=== PATIENT | female | born 1945 | race Caucasian/White ===

== ENCOUNTER → 2016-03-18 | Outpatient (CLI) | payer MEDICARE ==
[~2016-03-18] MED LIST: ATOR10TA66 PO; CALC1CAP21 PO; CALTRATE 600 +1 EACH PO; CHOL10002 PO; CHOL40002 PO; CLOB15CR3 TP; EST45C VG; LEVO75TA6 PO; LVT.05T PO; LVT.1T PO; METO50TA7 PO; MULT-1029 PO; VERA240C2 PO
--- NOTE | 2016-03-18 18:55 | Diagnostic Imaging Report ---
INDICATION: Digital mammogram bilateral screening. This study was compared to the prior exam of 03/13/15, 03/10/14 and 01/24/13. At this time, there are no current complaints. The current study was also evaluated with a Computer Aided Detection (CAD) system. FINDINGS: The fibroglandular tissue in both breasts is heterogeneously dense. This does limit the sensitivity of this exam. Overall, there does not appear to have been any significant change when compared to the prior study. No primary or secondary sign of malignancy is noted. IMPRESSION: There is no radiographic evidence for malignancy. ACR BI-RADS Category 1: Negative. Result letter will be mailed to the patient. Note: At least 10% of breast cancer is not imaged by mammography. Dictated by: Dictated on workstation # [id number]
== END ==
LOC: RAD 09:33
PROVIDERS: ATTEND Internal Medicine
DX: Z12.31 Encounter for screening mammogram for malignant neoplasm of breast (principal)

== ENCOUNTER → 2017-03-24 | Outpatient (CLI) | payer MEDICARE, OTHER ==
--- NOTE | 2017-03-24 10:26 | Diagnostic Imaging Report ---
INDICATION: Routine screening. Comparison is made with prior study from 03/18/2016 and 03/13/2015. The current study was also evaluated with a Computer Aided Detection (CAD) system. FINDINGS: Scattered parenchymal densities are identified bilaterally. The parenchymal pattern is stable. No dominant mass or malignant appearing microcalcifications are seen. The axillae are unremarkable. IMPRESSION: No mammographic features suspicious for malignancy are identified. ACR BI-RADS Category 1: Negative. Result letter will be mailed to the patient. Note: At least 10% of breast cancer is not imaged by mammography. Dictated by: Dictated on workstation # [id number]
== END ==
LOC: RAD 08:46
PROVIDERS: ATTEND Internal Medicine
DX: Z12.31 Encounter for screening mammogram for malignant neoplasm of breast (principal)
CPT/HCPCS: 77067

== ENCOUNTER 2017-11-25 14:57 | Outpatient (CLI) | payer MEDICARE ==
[~2017-11-25] VITALS: Ht 177.8 cm; Wt 74.9 kg
[~2017-11-25 14:57] MED LIST changes: +EST30C VG
== END 2017-11-25 15:11 | disposition home or self-care (01) ==
LOC: PREOP 14:57
PROVIDERS: ATTEND Surgery
DX: Z01.818 Encounter for other preprocedural examination (principal)

== ENCOUNTER 2017-12-01 07:07 | Day surgery (SDC) | payer MEDICARE ==
[~2017-12-01] VITALS: Ht 177.8 cm; Wt 74.9 kg
[2017-12-01] MEDS ORDERED: LACTATED RINGERS 1,000 ML IV ONE (07:16)
[2017-12-01] MEDS ORDERED: PROPOFOL INJECTION 50 ML IV ONE (07:25)
[2017-12-01] MEDS ORDERED: LACTATED RINGERS 1,000 ML IV STA (07:38)
[2017-12-01 07:40] VITALS: BP 124/65
--- NOTE | 2017-12-01 08:38 | Progress Note-Post Operative ---
Post-Operative Progess Note Surgeon (s)/Payroll Machine Operator (s) Surgeon JAKE TERESA DO Payroll Machine Operator: na Pre-Operative Diagnosis screening colonoscopy Post-Operative Diagnosis normal colon Procedure & Operative Findings Date of Procedure 12/01/17 Procedure Performed/Findings colonoscopy Anesthesia Type per instructional systems designer Estimated Blood Loss Estimated blood loss (mL): na Specimens/Packing Specimens Removed na JAKE TERESA DO Dec 01, 2017 08:38
--- NOTE | 2017-12-01 08:40 | Discharge Inst-Simple/Standard ---
Discharge Inst-Standard Patient Instructions/Follow Up Plan of Care/Instructions/FU: Repeat colonoscopy in 10 years unless history of polyps or family history colonoscopy which would be 5 years. Any issues before then be seen at that time. Activity as Tolerated: Yes Discharge Diet: Regular Diet JAKE TERESA DO Dec 01, 2017 08:40
[2017-12-01 08:45] VITALS: BP 102/58
[2017-12-01 09:05] VITALS: BP 118/66
--- NOTE | 2017-12-01 11:20 | Anesthesia-General Post-Op ---
MAC Patient Condition Mental Status/LOC: Same as Preop Cardiovascular: Satisfactory Nausea/Vomiting: Absent Respiratory: Satisfactory Pain: Controlled Complications: Absent Post Op Complications Complications None Follow Up Care/Instructions Patient Instructions None needed. Anesthesiology Discharge Order Discharge Order Patient is doing well, no complaints, stable vital signs, no apparent adverse anesthesia problems. No complications reported per nursing. MAGALI CANNON CRNA Dec 01, 2017 11:20
[2017-12-01 12:14] VITALS: BP 118/66
--- NOTE | 2017-12-01 13:06 | OPERATIVE REPORT ---
DATE OF SERVICE: 12/01/2017 PREOPERATIVE DIAGNOSIS: Screening colonoscopy. POSTOPERATIVE DIAGNOSIS: Normal colon. PROCEDURE: Colonoscopy. SURGEON: Jake Zamarripa DO ANESTHESIA: Per SYSTEMS DESIGNER. ESTIMATED BLOOD LOSS: None. COMPLICATIONS: None. INDICATIONS: The patient is a 72-year-old female due for screening colonoscopy. She understands risks and benefits and wished to proceed with procedure. Consent was signed on the chart. DESCRIPTION OF PROCEDURE: The patient was taken to the endoscopy suite, placed in left lateral recumbent position. Timeout was performed. Digital rectal exam was performed. There were no palpable polyps, masses or ulcerations. The scope was inserted in the rectum and advanced all the way to the cecum with minimal difficulty. Prep was adequate. Scope was then slowly retracted back. There were no polyps, masses or ulcerations within the cecum, ascending, transverse, descending and sigmoid colon. Once in the rectum, scope was also retroflexed noting some slight internal hemorrhoids. Scope was returned to its normal position, slowly withdrawn until completely removed. The patient tolerated the procedure well without any complications. She was taken to the recovery room in stable condition. RECOMMENDATIONS: The patient will need a repeat colonoscopy in 10 years unless family history of colon cancer or personal history of colon polyps, which would then be 5 years. If she has any problems prior to that, she should be reevaluated at that time. Job ID: [id number] DocumentID: [id number] Dictated Date: 12/01/2017 08:42:05 Inking Machine Tender Date: 12/01/2017 13:05:59 Dictated By: JAKE ZAMARRIPA DO
== END 2017-12-01 09:20 | disposition home or self-care (01) ==
LOC: ENDO 07:07
PROVIDERS: ATTEND Surgery
DX: Z12.11 Encounter for screening for malignant neoplasm of colon (principal); K64.8 Other hemorrhoids; I49.3 Ventricular premature depolarization; E03.9 Hypothyroidism, unspecified; Z79.899 Other long term (current) drug therapy

== ENCOUNTER → 2018-03-26 | Outpatient (CLI) | payer MEDICARE ==
--- NOTE | 2018-03-26 15:36 | Diagnostic Imaging Report ---
INDICATION: Screening. COMPARISON: Prior examination from 03/24/2017 back through 01/06/2012. EXAMINATION: Bilateral digital screening mammogram with CAD. 3D tomographic images were obtained and reviewed. The current study was also evaluated with a Computer Aided Detection (CAD) system. FINDINGS: There are scattered fibroglandular densities, bilaterally. There are a few benign type calcifications. There is no dominant mass, spiculated lesion or suspicious calcification identified. Skin, nipples and axilla are unremarkable. IMPRESSION: Category 2, benign. ACR BI-RADS Category 2: Benign findings. Result letter will be mailed to the patient. Note: At least 10% of breast cancer is not imaged by mammography. Dictated on workstation # [id number]
== END ==
LOC: RAD 09:20
PROVIDERS: ATTEND Internal Medicine
DX: Z12.31 Encounter for screening mammogram for malignant neoplasm of breast (principal)
CPT/HCPCS: 77067

== ENCOUNTER → 2019-01-03 | Outpatient (CLI) | payer MEDICARE | LOC: CARD 08:43 | PROVIDERS: ATTEND Internal Medicine Cardiovascular Disease | DX: I08.0 Rheumatic disorders of both mitral and aortic valves (principal); I77.810 Thoracic aortic ectasia; I49.3 Ventricular premature depolarization | CPT/HCPCS: 93306 ==

== ENCOUNTER → 2019-01-05 | Outpatient (CLI) | payer MEDICARE ==
[~2019-01-05] VITALS: Ht 172 cm; Wt 81.0 kg
[~2019-01-05] MED LIST changes: +CATHETER FLUSH 10 ML SYR IV PRN
[2019-01-05 09:18] VITALS: BP 146/73
--- NOTE | 2019-01-05 12:10 | STRESS TEST ---
DATE OF SERVICE: 01/05/2019 EXERCISE MYOVIEW STRESS TEST REFERRING PHYSICIAN: Ewa James DO Baseline heart rate is 67. Baseline blood pressure is 126/74. Baseline EKG is sinus rhythm with no ischemic changes. In summary, the patient was injected with 9.92 mCi of technetium-99 Myoview and the resting images were obtained. Then, the patient started exercising with a baseline heart rate, blood pressure and EKG mentioned above. The patient was able to exercise for 5 minutes 30 seconds on standard Joseluis protocol. With peak exercise level, EKG was showing [address] depression in II, III, aVF, V4 and V5. Blood pressure at peak was 167/58. During recovery, heart rate and blood pressure returned to baseline, had occasional PVCs and transient ventricular trigeminy noted during recovery. At the end of the test, EKG returned to baseline. The resting and stress images were reviewed and compared in the short axis, horizontal long axis, and vertical long axis views. Review of the images showed good radiotracer uptake with no significant ischemia or infarction. SSS is 3, SDS 2, TID value 0.97. On the gated images, the left ventricle appeared to be in normal size with normal contractility. Calculated ejection fraction is 68%. CONCLUSION: 1. Fair exercise tolerance, a total of 5 minutes 30 seconds on standard Joseluis protocol, total of 7.1 METs achieving 91% of maximum expected heart rate. 2. Appropriate heart rate and blood pressure response to exercise, transient episode of ventricular trigeminy and PVCs noted during recovery. 3. Nondiagnostic EKG changes with exercise returned to baseline during recovery. 4. No ischemia or infarction on SPECT images. 5. Normal left ventricular size with normal contractility. Calculated ejection fraction is 68%. Job ID: [id number] DocumentID: [id number] Dictated Date: 01/05/2019 11:19:41 Candle Wrapping Machine Operator Date: 01/05/2019 12:09:05 Dictated By: ERIK WATT MD
== END ==
LOC: CARD 06:58
PROVIDERS: ATTEND Internal Medicine Cardiovascular Disease
DX: I49.3 Ventricular premature depolarization (principal); I77.810 Thoracic aortic ectasia
CPT/HCPCS: 78452; 93017

== ENCOUNTER → 2019-03-04 | Outpatient (CLI) | payer MEDICARE ==
[~2019-03-04] MED LIST changes: -CATHETER FLUSH 10 ML SYR IV PRN
[2019-03-04 08:54] LABS: BASOPHILS % (AUTO) 0 % (0-10); EOSINOPHILS # (AUTO) 0.1 10^3/uL (0.0-0.3); EOSINOPHILS % (AUTO) 1 % (0-10); HEMATOCRIT 42 % (35-52); HEMOGLOBIN 13.4 G/DL (11.5-16.0); LYMPHOCYTES # (AUTO) 1.8 X 10^3 (1.0-4.0); LYMPHOCYTES % (AUTO) 36 % (12-44); MEAN CORPUSCULAR HEMOGLOBIN 31 PG (25-34); MEAN CORPUSCULAR HGB CONC 32 G/DL (32-36); MEAN CORPUSCULAR VOLUME 97 FL (80-99); MEAN PLATELET VOLUME 8.8 FL (7.4-10.4); MONOCYTES # (AUTO) 0.7 X 10^3 (0.0-1.0); MONOCYTES % (AUTO) 14 % (0-12); NEUTROPHILS # (AUTO) 2.5 X 10^3 (1.8-7.8); NEUTROPHILS % (AUTO) 49 % (42-75); PLATELET COUNT 162 10^3/uL (130-400); WHITE BLOOD COUNT 5.1 10^3/uL (4.3-11.0)
[2019-03-04 09:12] LABS: ALANINE AMINOTRANSFERASE 18 U/L (0-55); ALKALINE PHOSPHATASE 72 U/L (40-136); BILIRUBIN,TOTAL 0.8 MG/DL (0.1-1.0); BUN/CREATININE RATIO 18; CALCIUM 9.3 MG/DL (8.5-10.1); CARBON DIOXIDE 24 MMOL/L (21-32); CHLORIDE 107 MMOL/L (98-107); CREATININE SERUM 1.25 MG/DL (0.60-1.30); GFR ESTIMATED 42; GLUCOSE 94 MG/DL (70-105); POTASSIUM 4.2 MMOL/L (3.6-5.0); SODIUM 140 MMOL/L (135-145)
--- NOTE | 2019-03-04 09:41 | Diagnostic Imaging Report ---
INDICATION: Neck stiffness. TIME OF EXAM: 9:06 AM AP, lateral and odontoid views were obtained. FINDINGS: Odontoid view is obscured. Curvature of the cervical spine is normal. There is minimal retrolisthesis C4 on C5. There is generalized degenerative disc disease with variable disc space narrowing and marginal spurring, greatest at C4-C5 and C5-C6 levels. There is generalized facet arthropathy. No fracture is seen. Prevertebral tissues are within normal limits. IMPRESSION: Cervical spondylosis. No acute bony abnormality is detected. Dictated by: Dictated on workstation # [id number]
== END ==
LOC: CARD 08:42
PROVIDERS: ATTEND Internal Medicine
DX: R00.2 Palpitations (principal); M47.812 Spondylosis without myelopathy or radiculopathy, cervical region; D64.9 Anemia, unspecified; I50.9 Heart failure, unspecified; I25.10 Atherosclerotic heart disease of native coronary artery without angina pectoris
CPT/HCPCS: 36415; 72040; 80053; 83880; 84443; 84484; 85025; 85379

== ENCOUNTER → 2019-03-10 | Outpatient (CLI) | payer MEDICARE ==
[~2019-03-10] MED LIST changes: +CATHETER FLUSH 10 ML SYR IV PRN
--- NOTE | 2019-03-10 15:13 | Diagnostic Imaging Report ---
INDICATION: Pulmonary embolism. TECHNIQUE: Patient was administered 10.2 mCi technetium 99m DTPA through the nebulizer and imaging over the chest was performed. Next, patient was administered 5.1 mCi technetium 99m MAA intravenously and imaging over the chest was performed at multiple obliquities. FINDINGS: There is a somewhat heterogeneous ventilation pattern in both lungs. No definite ventilation defect is seen. The perfusion portion of the study demonstrates homogeneous perfusion to both lungs. No pleural-based perfusion defect is seen. IMPRESSION: Findings consistent with low probability for pulmonary embolism. Dictated by: Dictated on workstation # [id number]
== END ==
LOC: CARD 13:56
PROVIDERS: ATTEND Internal Medicine
DX: I26.99 Other pulmonary embolism without acute cor pulmonale (principal)
CPT/HCPCS: 78582

== ENCOUNTER → 2019-03-16 | Day surgery (SDC) | payer MEDICARE ==
[~2019-03-16] MED LIST changes: -CATHETER FLUSH 10 ML SYR IV PRN; +LIDOCAINE 1% INJ 20 ML 20 ML VIAL INJ ONE; +LIDOCAINE 1% INJ 20 ML 20 ML VIAL ONE
[2019-03-16 10:10] VITALS: BP 140/78
--- NOTE | 2019-03-16 10:51 | Implantation of Loop Monitor ---
Implant of Loop Monitior IMPLANTATION OF LOOP MONITOR REPORT DATE OF PROCEDURE: 03/16/19 PREOP DIAGNOSIS: Palpitation, paroxysmal atrial fibrillation POSTOP DIAGNOSIS: Palpitation, paroxysmal atrial fibrillation PROCEDURE DETAILS: The patient is a 73 female with history of paroxysmal atrial fibrillation requiring long-term surveillance. Therefore implantable loop recorder was discussed and agreed with the patient. Informed consent was taken. All risks and complications were discussed at length. The patient was draped and prepped in the usual sterile fashion. Local anesthesia was lidocaine, which was given in the substernal area close to the 4th intercostal space. Loop monitor Medtronic [id number] was implanted according to the protocol. Steri-Strips were placed at the end of the procedure. There were no complications and the patient tolerated the procedure well. The device was interrogated with a voltage of. ANESTHESIA: Local anesthesia with lidocaine. COMPLICATIONS: None CONTRAST/FLUOROSCOPY: None CONCLUSION: Successful implantation of a loop recorder with no complication FINAL DIAGNOSIS: Palpitation Paroxysmal atrial fibrillation PVCs ERIK WATT MD Mar 16, 2019 10:51 am
[2019-03-16 10:56] VITALS: BP 134/80
== END ==
LOC: CATH 09:53
PROVIDERS: ATTEND Internal Medicine Cardiovascular Disease
DX: I48.0 Paroxysmal atrial fibrillation (principal); I49.3 Ventricular premature depolarization; I77.810 Thoracic aortic ectasia; E55.9 Vitamin D deficiency, unspecified; E03.9 Hypothyroidism, unspecified; F41.9 Anxiety disorder, unspecified; Z88.2 Allergy status to sulfonamides; Z88.1 Allergy status to other antibiotic agents; Z98.51 Tubal ligation status; Z79.899 Other long term (current) drug therapy; Z79.01 Long term (current) use of anticoagulants; Z82.3 Family history of stroke; Z80.9 Family history of malignant neoplasm, unspecified
CPT/HCPCS: 33285

== ENCOUNTER → 2019-04-07 | Outpatient (CLI) | payer MEDICARE ==
[~2019-04-07] MED LIST changes: -LIDOCAINE 1% INJ 20 ML 20 ML VIAL INJ ONE; -LIDOCAINE 1% INJ 20 ML 20 ML VIAL ONE
--- NOTE | 2019-04-07 12:15 | Diagnostic Imaging Report ---
EXAMINATION: Digital mammogram INDICATION: Bilateral screening This study was compared with prior exams of 03/26/2018 03/24/2017 and 03/18/2016. At this time there are no current complaints. The fibroglandular tissue in both breasts is heterogeneously dense. This does limit the sensitivity of this exam. Overall, there has been no significant change when compared to the prior studies. There is no primary or secondary sign of malignancy noted. However in the interval since the prior exam a loop recorder device has been inserted into the medial aspect of the left breast. IMPRESSION: 1. There is no evidence of malignancy. 2. There has been interval insertion of a loop recorder device on the left. ACR category 1 ACR BI-RADS Category 1: Negative. Result letter will be mailed to the patient. Note: At least 10% of breast cancer is not imaged by mammography. Dictated by: Dictated on workstation # [id number]
== END ==
LOC: RAD 07:24
PROVIDERS: ATTEND Internal Medicine
DX: Z12.31 Encounter for screening mammogram for malignant neoplasm of breast (principal)
CPT/HCPCS: 77067

== ENCOUNTER → 2020-05-01 | Outpatient (CLI) | payer MEDICARE ==
--- NOTE | 2020-05-01 12:21 | Diagnostic Imaging Report ---
Indication: Routine screening Comparison is made with prior mammogram 04/07/2019 and 03/26/2018. 2-D and 3-D bilateral screening mammography was performed with CAD. Scattered fibroglandular densities are identified bilaterally. The cardiac monitoring device is noted in the medial left breast. No mass or malignant appearing microcalcifications are seen. Axillae are unremarkable. IMPRESSION: BI-RADS Category 2 No mammographic features suspicious for malignancy are identified. ACR BI-RADS Category 2: Benign findings. Result letter will be mailed to the patient. Note: At least 10% of breast cancer is not imaged by mammography. Dictated by: Dictated on workstation # [id number]
== END ==
LOC: RAD 09:53
PROVIDERS: ATTEND Internal Medicine
DX: Z12.31 Encounter for screening mammogram for malignant neoplasm of breast (principal)
CPT/HCPCS: 77063; 77067

== ENCOUNTER 2020-11-22 12:58 | Outpatient (RCR) | payer MEDICARE | END 2020-12-13 09:38 | disposition home or self-care (01) | PROVIDERS: ATTEND Internal Medicine | DX: M79.7 Fibromyalgia (principal); M25.562 Pain in left knee ==

== ENCOUNTER → 2020-11-27 | Outpatient (CLI) | payer MEDICARE | LOC: CARD 10:00 | PROVIDERS: ATTEND Internal Medicine Cardiovascular Disease | DX: I08.0 Rheumatic disorders of both mitral and aortic valves (principal); I10 Essential (primary) hypertension; I25.10 Atherosclerotic heart disease of native coronary artery without angina pectoris | CPT/HCPCS: 93306 ==

== ENCOUNTER → 2020-11-30 | Outpatient (CLI) | payer MEDICARE ==
--- NOTE | 2020-11-30 11:16 | Diagnostic Imaging Report ---
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 Heart size and pulmonary vascularity are normal. There are no infiltrates, effusions or pneumothoraces. IMPRESSION: Unremarkable chest. Report was faxed to [facility] Infection Control by zhang at 11:15AM. Dictated by: Dictated on workstation # [id number]
== END ==
LOC: RAD 10:57
DX: R76.11 Nonspecific reaction to tuberculin skin test without active tuberculosis (principal)
CPT/HCPCS: 71046

== ENCOUNTER 2021-01-07 09:45 | Outpatient (RCR) | payer MEDICARE | END 2021-01-07 13:34 | disposition home or self-care (01) | PROVIDERS: ATTEND Internal Medicine Rheumatology | DX: M18.0 Bilateral primary osteoarthritis of first carpometacarpal joints (principal); M19.041 Primary osteoarthritis, right hand; M19.042 Primary osteoarthritis, left hand ==

== ENCOUNTER → 2021-05-07 | Outpatient (CLI) | payer MEDICARE ==
--- NOTE | 2021-05-07 11:13 | Diagnostic Imaging Report ---
INDICATION: Postmenopausal. COMPARISON: None. FINDINGS: The bone mineral density of the spine, hips, and femoral necks was measured. The total T score for the spine is -1.5. The T score for the left hip is -1.8 and for the right hip -1.7. The T score for the left femoral neck is -1.5. All of these values indicate osteopenia. The T score for the right femoral neck is -0.9. This value is at the low end of normal. AP Spine L1-L4: [BMD (g/cm2): 1.023] [T-Score: -1.5] [Z-Score: -0.2] [BMD Previous: 1.061] [BMD % Change: -3.6] LT Hip Neck: [BMD (g/cm2): 0.824] [T-Score: -1.5] [Z-Score: 0.2] LT Hip Total: [BMD (g/cm2):0.779] [T-Score:-1.8] [Z-Score: -0.3] [BMD Previous: 0.755] [BMD % Change: 3.2] RT Hip Neck: [BMD (g/cm2):0.919] [T-Score:-0.9] [Z-Score:0.8] RT Hip Total: [BMD (g/cm2):0.791] [T-score:-1.7] [Z-Score:-0.2] [BMD Previous:0.805] [BMD % Change:-1.7] *Indicates significant change from prior examination based on 95% confidence level. World Health Organization criteria for BMD interpretation classify patients as Normal (T-score at or above -1.0), Osteopenic (T-score between -1.0 and -2.5) or Osteoporotic (T-score at or below -2.5). LIMITATIONS AND MODIFICATION: None. FRACTURE RISK (FRAX SCORE): The ten year probability of (%): Major Osteoporotic Fracture: [12.5] Hip Fracture: [2.8] IMPRESSION: 1. The bone mineral density of the spine, hips, and left femoral neck indicates osteopenia. 2. However, the T score for the right femoral neck is within normal limits. 3. See below National Osteoporosis Foundation guidelines on when to potentially initiate pharmacologic therapy. Based on the National Osteoporosis Foundation Guidelines, pharmacologic treatment should be initiated in any of the following, unless clinical conditions suggest otherwise: * Any patient with prior fragility fracture of the hip or vertebrae. A spine fracture indicates 5X risk for subsequent spine fracture and 2X risk for subsequent hip fracture. * Osteoporosis (T-score <-2.5). * Postmenopausal women and men age 50 and older with low bone mass/osteopenia (T-score between -1.0 and -2.5) by DXA and 10-year major osteoporotic fracture greater than 20% or a 10-year probability of hip fracture greater than 3%. These fracture risks are supplied above in the FRAX score, if applicable. * Clinician judgement and/or patient preferences may indicate treatment for people with 10-year fracture probabilities above or below these levels. Dictated by: Dictated on workstation # [id number]
--- NOTE | 2021-05-07 13:24 | Diagnostic Imaging Report ---
INDICATION: Routine screening. Comparison is made with prior mammogram from 05/01/2020 and 04/07/2019. 2-D and 3-D bilateral screening mammography was performed with CAD. Scattered fibroglandular densities are identified bilaterally. Cardiac loop recorder overlies the medial left breast. The parenchymal pattern is stable. No mass or malignant-appearing microcalcifications are seen. Axillae are unremarkable. IMPRESSION: No mammographic features suspicious for malignancy are identified. ACR BI-RADS Category 1: Negative. Result letter will be mailed to the patient. Note: At least 10% of breast cancer is not imaged by mammography. BI-RADS Category 1 Dictated by: Dictated on workstation # [id number]
== END ==
LOC: RAD 10:15
PROVIDERS: ATTEND Internal Medicine
DX: Z12.31 Encounter for screening mammogram for malignant neoplasm of breast (principal); M80.00XG Age-related osteoporosis with current pathological fracture, unspecified site, subsequent encounter for fracture with delayed healing
CPT/HCPCS: 77063; 77067; 77080

== ENCOUNTER → 2021-11-20 | Outpatient (CLI) | payer MEDICARE | LOC: CARD 07:55 | PROVIDERS: ATTEND Internal Medicine Cardiovascular Disease | DX: I10 Essential (primary) hypertension (principal); I25.10 Atherosclerotic heart disease of native coronary artery without angina pectoris | CPT/HCPCS: 93306 ==

== ENCOUNTER → 2021-11-20 | Outpatient (CLI) | payer MEDICARE ==
[~2021-11-20] MED LIST changes: +CATHETER FLUSH 10 ML SYR IV PRN; +HOLD METFORMIN - RECEIVED CONTRAST 20 ML VIAL IV SCH; +IOHEXOL 350 MG/ML 100 ML (OMNIPAQUE 350) VIAL IV ONE; +NS 100 ML (IVPB) BAG IV ONE
--- NOTE | 2021-11-20 08:34 | Diagnostic Imaging Report ---
EXAMINATION: CT angiography of the chest. TECHNIQUE: Contrast enhanced thin section helical images were obtained through the chest with intravenous contrast timed for the optimal opacification of the arterial structures per CTA protocol. Post-processing, reconstructions and interpretation of angiographic images of the vessels was performed. 3D MIP reconstructions were performed and reviewed. All CT scans use one or more of the following dose optimizing techniques: automated exposure control, MA and/or KvP adjustment based on a patient size and exam type, or iterative reconstruction. HISTORY: Thoracic aortic aneurysm COMPARISON: 05/24/2014 FINDINGS: Vascular: There is redemonstrated mild ectasia of the ascending thoracic aorta measuring 3.9 cm. No other aneurysm, dissection, or significant stenosis. Thyroid: The thyroid is normal. Mediastinum: There are multiple enlarged mediastinal lymph nodes measuring up to 1.3 cm short axis. Heart size is normal without significant pericardial effusion. Lungs and airways: There is peripheral dominant groundglass reticulation within the lungs as well as mild areas of air trapping. No pleural effusion or pneumothorax. The airways are normal. Upper abdomen: The subphrenic structures are normal. Musculoskeletal: No suspicious osseous lesion or compression fracture. IMPRESSION: 1. Minimal increased ectasia of the ascending thoracic aorta measuring up to 3.9 cm. No dissection or significant stenosis. 2. Peripheral predominant reticulation and groundglass throughout the lungs which can be seen with atelectasis, atypical infection, or underlying interstitial lung disease. 3. Multiple mildly enlarged mediastinal lymph nodes which are indeterminate and may be reactive. Dictated by: Dictated on workstation # [id number]
== END ==
LOC: RAD 07:56
PROVIDERS: ATTEND Internal Medicine Cardiovascular Disease
DX: I77.810 Thoracic aortic ectasia (principal); J98.11 Atelectasis
CPT/HCPCS: 71275

== ENCOUNTER → 2021-12-09 | Outpatient (CLI) | payer MEDICARE ==
[~2021-12-09] MED LIST changes: -CATHETER FLUSH 10 ML SYR IV PRN; -HOLD METFORMIN - RECEIVED CONTRAST 20 ML VIAL IV SCH; -IOHEXOL 350 MG/ML 100 ML (OMNIPAQUE 350) VIAL IV ONE; -NS 100 ML (IVPB) BAG IV ONE; +REGADENOSON 0.4 MG/5 ML SYR (LEXISCAN) IV ONE
[2021-12-09] MEDS: CATHETER FLUSH 10 ML SYR IVP PRN ×2 (07:55→09:31)
[2021-12-09 09:29] VITALS: BP 138/78
--- NOTE | 2021-12-09 16:23 | Cardiology Stress Test Report ---
Stress Test Report Date of Procedure/Referring: Date of Procedure: Dec 09, 2021 PCP Rupali Patterson MD Admitting Physician Admitting Physician: Attending Physician: Neisha Lindsey MD Baseline Heart Rate: 66 Baseline Blood Pressure: Blood Pressure Systolic: 138 Blood Pressure Diastolic: 78 Baseline Vitals Vital Signs Date Time Temp Pulse Resp B/P (MAP) Pulse Ox O2 Delivery O2 Flow Rate FiO2 12/09/21 09:29 64 20 138/78 (98) 98 Room Air Baseline EKG: Baseline EKG: NSR Summary After explaining the procedure to the patient, she signed a consent and then brought to the stress nuclear laboratory. Patient received 0.4 mg Lexiscan for stress test, ECG, heart rate and blood pressure were monitored continuously. Resting and stress dose of radio tracer were injected, imaging was acquired and reviewed in short axis, horizontal long axis and vertical long axis views. TID: 0.95 SSS: 5 SDS: 1 EF: 77 1. Patient tolerated Lexiscan well 2. Extracardiac attenuation with no significant ischemia or infarction on SPECT images 3. Normal left ventricular size, ejection fraction 77% NEIHSA LINDSEY MD Dec 09, 2021 16:23
== END ==
LOC: CARD 07:32
PROVIDERS: ATTEND Internal Medicine Cardiovascular Disease
DX: I10 Essential (primary) hypertension (principal); I25.10 Atherosclerotic heart disease of native coronary artery without angina pectoris
CPT/HCPCS: 78452; 93017; A9502

== ENCOUNTER → 2022-05-08 | Outpatient (CLI) | payer MEDICARE ==
[~2022-05-08] MED LIST changes: -REGADENOSON 0.4 MG/5 ML SYR (LEXISCAN) IV ONE
--- NOTE | 2022-05-08 10:14 | Diagnostic Imaging Report ---
INDICATION: Routine screening. COMPARISON: 05/07/2021 and 05/01/2020. TECHNIQUE: 2D and 3D bilateral screening mammography was performed with CAD. FINDINGS: Scattered fibroglandular densities are noted bilaterally. A cardiac loop recorder overlies the medial left breast soft tissues. No mass or malignant-appearing microcalcifications are seen. The axillae are unremarkable. IMPRESSION: No mammographic features suspicious for malignancy are identified. ACR BI-RADS Category 1: Negative. Result letter will be mailed to the patient. Note: At least 10% of breast cancer is not imaged by mammography. Dictated by: Dictated on workstation # [id number]
== END ==
LOC: RAD 07:51
PROVIDERS: ATTEND Internal Medicine
DX: Z12.31 Encounter for screening mammogram for malignant neoplasm of breast (principal)
CPT/HCPCS: 77063; 77067

== ENCOUNTER 2022-08-03 10:36 | Observation (INO) | payer MEDICARE ==
[2022-08-03] VITALS (7 sets, daily range): BP systolic 97–121; BP diastolic 57–83
[~2022-08-03] VITALS: Ht 174 cm; Wt 82.0 kg
[2022-08-03 10:57] LABS: BASOPHILS % (AUTO) 0 % (0-10); EOSINOPHILS % (AUTO) 0 % (0-10); HEMATOCRIT 43 % (35-52); HEMOGLOBIN 14.3 g/dL (11.5-16.0); LYMPHOCYTES # (AUTO) 1.2 10^3/uL (1.0-4.0); LYMPHOCYTES % (AUTO) 8 % (12-44); MEAN CORPUSCULAR HEMOGLOBIN 31 pg (25-34); MEAN CORPUSCULAR HGB CONC 33 g/dL (32-36); MEAN CORPUSCULAR VOLUME 94 fL (80-99); MEAN PLATELET VOLUME 9.7 fL (9.0-12.2); MONOCYTES # (AUTO) 1.6 10^3/uL (0.0-1.0); MONOCYTES % (AUTO) 10 % (0-12); NEUTROPHILS # (AUTO) 12.3 10^3/uL (1.8-7.8); NEUTROPHILS % (AUTO) 81 % (42-75); PLATELET COUNT 183 10^3/uL (130-400); WHITE BLOOD COUNT 15.2 10^3/uL (4.3-11.0)
[2022-08-03 11:06] LABS: INR 1.1 (0.8-1.4); PROTHROMBIN TIME PATIENT 14.5 SEC (12.2-14.7)
[2022-08-03 11:07] LABS: ALBUMIN 3.6 GM/DL (3.2-4.5); CHLORIDE 104 MMOL/L (98-107); SODIUM 138 MMOL/L (135-145)
[2022-08-03 11:08] LABS: CALCIUM 9.4 MG/DL (8.5-10.1)
[2022-08-03 11:09] LABS: GLUCOSE 156 MG/DL (70-105)
[2022-08-03 11:10] LABS: TOTAL PROTEIN 7.2 GM/DL (6.4-8.2)
[2022-08-03 11:11] LABS: BILIRUBIN,TOTAL 1.2 MG/DL (0.1-1.0); CARBON DIOXIDE 21 MMOL/L (21-32)
[2022-08-03 11:12] LABS: LYMPHOCYTES % (MANUAL) 13 %; MONOCYTES % (MANUAL) 10 %; NEUTROPHILS % (MANUAL) 75 %; RBC MORPH NORMAL; REACTIVE LYMPHOCYTES 2 %
[2022-08-03 11:13] LABS: ALKALINE PHOSPHATASE 164 U/L (40-136); GFR ESTIMATED 42
[2022-08-03 11:14] LABS: BUN/CREATININE RATIO 16
[2022-08-03] MEDS ORDERED: LIDOCAINE 2% VISCOUS 15 ML UDC PO ONE (11:15)
[2022-08-03] MEDS ORDERED: ANTACID SUSP 30 ML UDC (MYLANTA) PO ONE (11:15)
[2022-08-03] MEDS ORDERED: ONDANSETRON 4 MG/2 ML (SDV) Z0FRAN IVP ONE (11:15)
[2022-08-03 11:16] LABS: ALANINE AMINOTRANSFERASE 26 U/L (0-55)
--- NOTE | 2022-08-03 11:20 | ED Chest Pain ---
General Chief Complaint: Head/Cervical Problems Stated Complaint: LEFT SIDE NECK AND SHOULDER PAIN Nursing Triage Note: PT STATES NECK PAIN STARTED YESTERDAY AROUND DINNER TIME, ACROSS BOTH SHOULDER, SOB WALKING IN THE HOUSE, HX OF PVC'S Source: patient, family, old records Exam Limitations: no limitations History of Present Illness Date Seen by Provider: Aug 03, 2022 Time Seen by Provider: 10:51 Initial Comments This 77-year-old woman presents to the emergency room with primary complaint of pain in the upper back and radiating to the neck. This pain is nontender and nonpositional. She has no known cardiac disease and had a negative Lexiscan stress test last November per chart review. EF at that time was 77%. She has no fever or chills. She denies cough, nausea, vomiting, or diarrhea. Symptoms started yesterday. She has developed dyspnea on exertion as well. She also reported some episodes of chest pain, particularly when laying flat, but no chest pain now. Patient has a dusky appearance on initial evaluation which cause some concern for staph, but her vital signs are normal including oxygen saturation. Dr. Ochoa is her primary care provider. 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 Allergies and Home Medications Allergies Coded Allergies: Sulfa (Sulfonamide Antibiotics) (Unverified Allergy, Unknown, 11/25/17) ciprofloxacin (Unverified Allergy, Unknown, 11/25/17) Patient Home Medication List Home Medication List Reviewed: Yes Aspirin (Aspirin EC) 81 Mg Tablet., 81 MG PO DAILY, (Reported) Entered as Reported by: LEVY SÁNCHEZ on 08/04/22952 Last Action: Reviewed Atorvastatin Calcium (Atorvastatin Calcium) 10 Mg Tablet, 10 MG PO HS, (Reported) Entered as Reported by: LEVY SÁNCHEZ on 08/04/22952 Last Action: Reviewed Calcium Carbonate/Vitamin D3 (Calcium 600 + Vit D Softgel) 600MG-12.5 Capsule, 2 EACH PO 1200, (Reported) Entered as Reported by: LEVY SÁNCHEZ on 08/04/22952 Last Action: Reviewed Cholecalciferol (Vitamin D3) (Vitamin D3) 25 Mcg (1000 Unit) Tablet, 25 MCG PO 1200, (Reported) Entered as Reported by: LEVY SÁNCHEZ on 08/04/22952 Last Action: Reviewed Duloxetine HCl (Duloxetine HCl) 30 Mg Capsule.dr, 30 MG PO DAILY, (Reported) Entered as Reported by: LEVY SÁNCHEZ on 08/04/22952 Last Action: Reviewed Estrogens Conjugated (Premarin) 0.625 Mg/Gram Cr, 1 APPLIC VG MO,WE,SA @HS, (Reported) Entered as Reported by: NIKOLAI HERNANDEZ on 11/25/17 0294 Last Action: Reviewed Furosemide (Furosemide) 20 Mg Tablet, 20 MG PO DAILY, (Reported) Entered as Reported by: LEVY SÁNCHEZ on 08/04/22952 Last Action: Reviewed L.acidoph & Paracasei,B.lactis (Probiotic) 10 Billion Cell Capsule, 1 EACH PO 1200, (Reported) Entered as Reported by: LEVY SÁNCHEZ on 08/04/22952 Last Action: Reviewed Levothyroxine Sodium (Levothyroxine Sodium) 75 Mcg Tablet, 75 MCG PO DAILY, (Reported) Entered as Reported by: LEVY SÁNCHEZ on 08/04/22952 Last Action: Reviewed Minocycline HCl (Minocycline HCl) 100 Mg Capsule, 100 MG PO BID, (Reported) Entered as Reported by: LEVY SÁNCHEZ on 08/04/22952 Last Action: Reviewed [place]-3/Dha/Epa/Fish Oil (Fish Oil 1,200 mg Softgel) 1,200 Mg (144 Mg-216 Mg) Capsule, 1,200 MG PO 1200, (Reported) Entered as Reported by: LEVY SÁNCHEZ on 08/04/22952 Last Action: Reviewed Potassium Chloride (Potassium Chloride) 10 Meq Tab.er.prt, 10 MEQ PO DAILY, (Reported) Entered as Reported by: LEVY SÁNCHEZ on 08/04/22952 Last Action: Reviewed Verapamil HCl (Verapamil Sr) 240 Mg Cap24h.pel, 240 MG PO DAILY, (Reported) Entered as Reported by: LEVY SÁNCHEZ on 08/04/22952 Last Action: Reviewed [Palmitoylethanolamid] , 300 MG PO BID, (Reported) Entered as Reported by: LEVY SÁNCHEZ on 08/04/221005 Last Action: Reviewed Discontinued Medications Atorvastatin Calcium (Lipitor Tablet) 10 Mg Tablet, 10 MG PO DAILY, (Reported) Discontinued Reason: No Longer Taking Entered as Reported by: YVES MALHOTRA on 05/24/142021 Last Action: Discontinued Calcium Carbonate/Vitamin D3 (Calcium 600 + D3 Softgel) 1 Each Capsule, 1 EACH PO BID, (Reported) Discontinued Reason: No Longer Taking Entered as Reported by: YVES MALHOTRA on 05/24/142020 Last Action: Discontinued Cholecalciferol (Vitamin D3 Tablet) 1,000 Unit Tab, 1,000 UNIT PO DAILY, (Reported) Discontinued Reason: No Longer Taking Entered as Reported by: YVES MALHOTRA on 05/24/142020 Last Action: Discontinued Levothyroxine Sodium (Levothyroxine 50 Mcg Tab) 50 Mcg Tablet, 50 MCG PO every other day, (Reported) Discontinued Reason: No Longer Taking Entered as Reported by: YVES MALHOTRA on 05/24/142020 Last Action: Discontinued Levothyroxine Sodium (Levothyroxine 75 Mcg Tab) 75 Mcg Tablet, 75 MCG PO every other day, (Reported) Discontinued Reason: No Longer Taking Entered as Reported by: YVES MALHOTRA on 05/24/142020 Last Action: Discontinued Verapamil Hcl (Verapamil Sr 240 Mg) 240 Mg Cap24h.pel, 1 EACH PO DAILY, (Reported) Discontinued Reason: No Longer Taking Entered as Reported by: YVES MALHOTRA on 05/24/142020 Last Action: Discontinued Review of Systems Review of Systems Constitutional: no symptoms reported EENTM: No Symptoms Reported Respiratory: See HPI Cardiovascular: See HPI Gastrointestinal: No Symptoms Reported Genitourinary: No Symptoms Reported Musculoskeletal: see HPI Skin: no symptoms reported Psychiatric/Neurological: No Symptoms Reported Endocrine: No Symptoms Reported Hematologic/Lymphatic: No Symptoms Reported Past Btxaada-Ulnxlp-Kyvbnj Hx Patient Social History Tobacco Use?: No Substance use?: No Alcohol Use?: Yes Alcohol Frequency: Rarely Immunizations Up To Date Tetanus Booster (TDap): Unknown Seasonal Allergies Seasonal Allergies: Yes Past Medical History Surgery/Hospitalization HX: PVC'S, TUBAL LIGATION Surgeries: Yes Tubal Ligation Respiratory: No Cardiac: Yes (pvc) High Cholesterol Neurological: No Reproductive Disorders: No 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 2.0oz. 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 Norm as Tested Skin: Warm/Dry, Pallor Focused Exam Sepsis Stage: Severe Sepsis (May be severe sepsis if pneumonia is confirmed) Possible Source: Pulmonary Lactate Level 08/03/22 13:50: Lactic Acid Level 3.15*H Time of Focused Exam: 14:38 Respiratory: Lungs Clear, Normal Breath Sounds, No Accessory Muscle Use, No Respiratory Distress Cardiovascular: Regular Rate, Rhythm, No Edema, No Murmur Capillary Refill: Less Than 3 Seconds Skin: normal color, warm/dry Lactic Acid Level Laboratory Tests Test 08/03/22 13:50 Lactic Acid Level 3.15 MMOL/L (0.50-2.00) *H Within 3hrs of presentation: Admin fluids, Admin ABX, Blood cultures prior to ABX's, Focus exam, Lactate level Progress/Results/Core Measures Results/Orders Lab Results Laboratory Tests Test 08/03/22 10:50 08/03/22 11:00 08/03/22 13:23 08/03/22 13:50 Range/Units White Blood Count 15.2 H 4.3-11.0 10^3/uL Red Blood Count 4.57 3.80-5.11 10^6/uL Hemoglobin 14.3 11.5-16.0 g/dL Hematocrit 43 35-52 % Mean Corpuscular Volume 94 80-99 fL Mean Corpuscular Hemoglobin 31 25-34 pg Mean Corpuscular Hemoglobin Concent 33 32-36 g/dL Red Cell Distribution Width 14.6 H 10.0-14.5 % Platelet Count 183 130-400 10^3/uL Mean Platelet Volume 9.7 9.0-12.2 fL Immature Granulocyte % (Auto) 1 % Neutrophils (%) (Auto) 81 H 42-75 % Lymphocytes (%) (Auto) 8 L 12-44 % Monocytes (%) (Auto) 10 0-12 % Eosinophils (%) (Auto) 0 0-10 % Basophils (%) (Auto) 0 0-10 % Neutrophils # (Auto) 12.3 H 1.8-7.8 10^3/uL Lymphocytes # (Auto) 1.2 1.0-4.0 10^3/uL Monocytes # (Auto) 1.6 H 0.0-1.0 10^3/uL Eosinophils # (Auto) 0.0 0.0-0.3 10^3/uL Basophils # (Auto) 0.0 0.0-0.1 10^3/uL Immature Granulocyte # (Auto) 0.1 0.0-0.1 10^3/uL Neutrophils % (Manual) 75 % Lymphocytes % (Manual) 13 % Monocytes % (Manual) 10 % Reactive Lymphocytes 2 % Blood Morphology Comment NORMAL Prothrombin Time 14.5 12.2-14.7 SEC INR Comment 1.1 0.8-1.4 Activated Partial Thromboplast Time 29 24-35 SEC D-Dimer 1.32 H 0.00-0.49 UG/ML Sodium Level 138 135-145 MMOL/L Potassium Level 4.0 3.6-5.0 MMOL/L Chloride Level 104 98-107 MMOL/L Carbon Dioxide Level 21 21-32 MMOL/L Anion Gap 13 5-14 MMOL/L Blood Urea Nitrogen 21 H 7-18 MG/DL Creatinine 1.30 0.60-1.30 MG/DL Estimat Glomerular Filtration Rate 42 BUN/Creatinine Ratio 16 Glucose Level 156 H 70-105 MG/DL Calcium Level 9.4 8.5-10.1 MG/DL Corrected Calcium 9.7 8.5-10.1 MG/DL Magnesium Level 2.0 1.6-2.4 MG/DL Total Bilirubin 1.2 H 0.1-1.0 MG/DL Aspartate Amino Transf (AST/SGOT) 44 H 5-34 U/L Alanine Aminotransferase (ALT/SGPT) 26 0-55 U/L Alkaline Phosphatase 164 H 40-136 U/L Lactate Dehydrogenase 302 H 125-220 U/L Total Creatine Kinase 78 29-168 U/L Myoglobin 81.2 10.0-92.0 NG/ML Troponin I < 0.028 <0.028 NG/ML C-Reactive Protein High Sensitivity 1.06 H 0.00-0.50 MG/DL Total Protein 7.2 6.4-8.2 GM/DL Albumin 3.6 3.2-4.5 GM/DL Thyroid Stimulating Hormone (TSH) 1.02 0.35-4.94 UIU/ML Free Thyroxine 0.99 0.70-1.48 NG/DL Influenza Type A (RT-PCR) Not Detected Not Detecte Influenza Type B (RT-PCR) Not Detected Not Detecte SARS-CoV-2 RNA (RT-PCR) Not Detected Not Detecte Blood Gas Puncture Site RIGHT RADIAL Blood Gas Patient Temperature 36.5 Arterial Blood pH 7.39 7.37-7.43 Arterial Blood Partial Pressure CO2 37 35-45 MMHG Arterial Blood Partial Pressure O2 67 L 79-93 MMHG Arterial Blood HCO3 22 L 23-27 MMOL/L Arterial Blood Total CO2 23.3 21.0-31.0 MMOL/L Arterial Blood Oxygen Saturation 94 94-100 % Arterial Blood Base Excess -2.2 -2.5-2.5 MMOL/L Luc Test POSITIVE Blood Gas Ventilator Setting NO Blood Gas Inspired Oxygen N/A Urine Color DARK YELLOW Urine Clarity SL CLOUDY Urine pH 5.5 5-9 Urine Specific [place] 1.010 L 1.016-1.022 Urine Protein NEGATIVE NEGATIVE Urine Glucose (UA) NEGATIVE NEGATIVE Urine Ketones NEGATIVE NEGATIVE Urine Nitrite NEGATIVE NEGATIVE Urine Bilirubin NEGATIVE NEGATIVE Urine Urobilinogen 0.2 < = 1.0 MG/DL Urine Leukocyte Esterase NEGATIVE NEGATIVE Urine RBC (Auto) TRACE-I H NEGATIVE Urine RBC 2-5 H /HPF Urine WBC NONE /HPF Urine Squamous Epithelial Cells 5-10 /HPF Urine Crystals PRESENT H /LPF Urine Amorphous Sediment FEW DAVIDA URATES H /LPF Urine Bacteria TRACE /HPF Urine Casts NONE /LPF Urine Mucus NEGATIVE /LPF Urine Culture Indicated CULTURE PENDING Lactic Acid Level 3.15 *H 0.50-2.00 MMOL/L My Orders Orders - RDAHA ROGERS MD Cbc With Automated Diff (08/03/22 10:52) Magnesium (08/03/22 10:52) Chest 1 View, Ap/Pa Only (08/03/22 10:52) Ekg Tracing (08/03/22 10:52) Comprehensive Metabolic Panel (08/03/22 10:52) Myoglobin Serum (08/03/22 10:52) Protime With Inr (08/03/22 10:52) Partial Thromboplastin Time (08/03/22 10:52) O2 (08/03/22 10:52) Monitor-Rhythm Ecg Trace Only (08/03/22 10:52) Lipid Panel (08/04/22 06:00) Ed Iv/Invasive Line Start (08/03/22 10:52) Troponin I Roberth (08/03/22 10:52) Covid 19 Inhouse Test (08/03/22 10:52) Influenza A And B By Pcr (08/03/22 10:52) Manual Differential (08/03/22 10:50) Hs C Reactive Protein (08/03/22 11:09) Ondansetron Injection (Zofran Injectio (08/03/22 11:15) Lidocaine 2% Viscous 15 Ml (Xylocaine Vi (08/03/22 11:15) Antacid Suspension (Mylanta Suspension (08/03/22 11:15) Ct Angio Chest W (R/O Pe) (08/03/22 11:12) Ns Iv 1000 Ml (Sodium Chloride 0.9%) (08/03/22 11:30) Fibrin Degradation Products (08/03/22 11:17) Iohexol Injection (Omnipaque 350 Mg/Ml 1 (08/03/22 11:30) Ns (Ivpb) (Sodium Chloride 0.9% Ivpb Bag (08/03/22 11:30) Thyroid Stimulating Hormone (08/03/22 11:44) Free T4 (Free Thyroxine) (08/03/22 11:44) Nitroglycerin 0.4 Mg Btl 25's (Nitrostat (08/03/22 12:15) Arterial Blood Gas (08/03/22 13:18) Creatine Kinase (08/03/22 13:36) LDH (08/03/22 13:36) Lactic Acid Analyzer (08/03/22 13:36) Blood Culture (08/03/22 13:38) Urinalysis (08/03/22 13:38) Urine Culture (08/03/22 13:38) Vital Signs Adult Sepsis Patie Q15M (08/03/22 13:38) Ceftriaxone Iv/Im (Rocephin Iv/Im) (08/03/22 13:45) Ed Admission (Communication) (08/03/22 13:52) Arterial Blood Draw - Obtain (08/03/22:23) Ns Iv 500 Ml (Sodium Chloride 0.9%) (08/03/22 14:30) Medications Given in ED Vital Signs/I&O 08/03/22 08/03/22 10:46 14:40 Temp 36.5 36.9 Pulse 84 68 Resp 20 20 B/P (MAP) 121/71 (88) 106/52 Pulse Ox 98 O2 Delivery Room Air Nasal Cannula O2 Flow Rate 2.00 08/04/22 00:00 Intake Total 1050 ml Balance 1050 ml Blood Pressure Mean: 88 Progress Progress Note : Time: 14:26 Progress Note Thorough work-up was pursued. Labs were reviewed including CBC, CMP, CRP, COVID swab, and thyroid studies. These labs were all reviewed and interpreted by me. CBC was remarkable for WBC of 15. CMP demonstrated no abnormalities of concern. CRP was minimally elevated. COVID swab was negative. Thyroid studies were normal. D-dimer was elevated at 1.3. Dr. Ochoa presented to the emergency room to evaluate the patient herself. She is familiar with this patient from care in the clinic. She is also concerned about her dusky appearance and demeanor. CT angiogram of the chest was obtained to evaluate her back pain and dyspnea further. CT angiogram demonstrated stable ectasia of the ascending aorta with no evidence of dissection or unstable aneurysm. Patient's pain improved without any particular treatment. Her initial pain was 8 or 9 out of 10. This subsided to 3 out of 10. She did receive a GI cocktail but her improvement of pain was not in proximity to that treatment. I discussed the case with Dr. Ochoa. Upon further review and my personal interpretation of her CT scan, there is concern that the interstitial pulmonary findings noted as atelectasis on the radiologist's interpretation actually represent pneumonia. Labs were added including lactic acid, ABG, LDH, and blood cultures. ABG showed a PO2 of 67. Nasal cannula was applied at 2 L which did help her feel somewhat improved. Due to concern for pneumonia, antibiotic therapy was initiated with Rocephin and admission for observation was sought. EKG was evaluated early in the ER stay and no ischemic changes were noted. Troponin was negative. Lactic acid returned elevated greater than 3. Patient received a liter of IV fluid. A trial of nitroglycerin was given to treat her remaining pain. This did not significantly improve her remaining pain but did cause a significant drop in b lood pressure. An additional 500 mL normal saline bolus was then administered. Initial ECG Impression Date: Aug 03, 2022 Initial ECG Impression Time: 10:58 Initial ECG Rate: 82 Initial ECG Rhythm: Normal Sinus Comment Sinus rhythm with no ST elevation or depression. No significant abnormal intervals or axis deviation. No evidence for ischemia. Diagnostic Imaging Diagonstic Imaging: Xray Plain Films/CT/US/NM/MRI: chest Comments NAME: JUAN ALBERTO SALGADO [facility] REC#: [id number] PT STATUS: REG ER : 1945 PHYSICIAN: RADHA ROGERS MD ADMIT DATE: 08/03/22/ER Draft Date of Exam:08/03/22 CHEST 1 VIEW, AP/PA ONLY Indication: Neck pain and shoulder pain. Time of Exam: 11:40 AM Heart size is normal. There is a cardiac loop recorder overlying the left lung base. There are chronic-appearing interstitial changes in both lungs. No parenchymal consolidation is seen. There is no effusion or pneumothorax. IMPRESSION: Interstitial changes. No acute feature identified. Dictated on workstation # [id number] Dict: 08/03/22 1149 Trans: 08/03/22 1154 [facility] [id number] Interpreted by: TERESO CLARK MD Diagonstic Imaging: CT Plain Films/CT/US/NM/MRI: chest Comments NAME: JUAN ALBERTO SALGADO [facility] REC#: [id number] PT STATUS: REG ER : 1945 PHYSICIAN: RADHA ROGERS MD ADMIT DATE: 08/03/22/ER Draft Date of Exam:08/03/22 CT ANGIO CHEST W (R/O PE) EXAM: CT ANGIO CHEST W (R/O PE) 3D reconstructions including MIPs of the angiographic images were performed and reviewed. INDICATION: Chest and back pain. COMPARISON: CTA chest 11/20/2021. FINDINGS: No pulmonary artery filling defects. Ectasia of the ascending thoracic aorta measuring approximately 3.9 cm, stable. No thoracic dissection. The great arch vessels are widely patent. Normal heart size. No pericardial effusion. Stable prominent mediastinal lymph nodes including a pretracheal lymph node measuring up to 1.0 cm in short axis dimension. No hilar or axillary lymphadenopathy. Mild dependent atelectasis in the lungs which are otherwise clear. No endobronchial lesions. No pleural effusion or pneumothorax. No acute osseous findings. Small esophageal hiatal hernia. Calcified granulomas in the spleen. IMPRESSION: 1. No pulmonary emboli. 2. Stable ectasia of the ascending thoracic aorta measuring up to 3.9 cm. No thoracic aortic dissection. 3. Mild dependent atelectasis in the lung bases. Dictated on workstation # [id number] Dict: 08/03/22 1145 Trans: 08/03/22 1157 [facility] [id number] Interpreted by: ALEX SUAREZ MD Departure Communication (Admissions) Time/Spoke to Admitting Phy: 13:40 Dr. Ochoa Time/Spoke to Consulting Phy: 13:55 Dr. Lindsey Impression Primary Impression: Lower lobe pneumonia Qualified Codes: J18.9 - Pneumonia, unspecified organism Additional Impressions: Chest pain Qualified Codes: R07.9 - Chest pain, unspecified Back pain Qualified Codes: M54.6 - Pain in thoracic spine Hypoxia Disposition: ADMITTED INPATIENT Condition: Improved Admissions Decision to Admit Reason: Admit from ER (General) Decision to Admit/Date: Aug 03, 2022 Time/Decision to Admit Time: 13:55 Departure-Patient Inst. Referrals: FRANTZ OCHOA DO (PCP/Family) Primary Care Physician RADHA ROGERS MD Aug 03, 2022 11:20
[2022-08-03] MEDS ORDERED: IOHEXOL 350 MG/ML 100 ML (OMNIPAQUE 350) VIAL IV ONE (11:30)
[2022-08-03] MEDS ORDERED: NS IV 1000 ML 1,000 ML IV SCH (11:30)
[2022-08-03] MEDS ORDERED: NS 100 ML (IVPB) BAG IV ONE (11:30)
--- NOTE | 2022-08-03 11:54 | Diagnostic Imaging Report ---
Indication: Neck pain and shoulder pain. Time of Exam: 11:40 AM Heart size is normal. There is a cardiac loop recorder overlying the left lung base. There are chronic-appearing interstitial changes in both lungs. No parenchymal consolidation is seen. There is no effusion or pneumothorax. IMPRESSION: Interstitial changes. No acute feature identified. Dictated by: Dictated on workstation # [id number]
--- NOTE | 2022-08-03 11:58 | Diagnostic Imaging Report ---
EXAM: CT ANGIO CHEST W (R/O PE) 3D reconstructions including MIPs of the angiographic images were performed and reviewed. INDICATION: Chest and back pain. COMPARISON: CTA chest 11/20/2021. FINDINGS: No pulmonary artery filling defects. Ectasia of the ascending thoracic aorta measuring approximately 3.9 cm, stable. No thoracic dissection. The great arch vessels are widely patent. Normal heart size. No pericardial effusion. Stable prominent mediastinal lymph nodes including a pretracheal lymph node measuring up to 1.0 cm in short axis dimension. No hilar or axillary lymphadenopathy. Mild dependent atelectasis in the lungs which are otherwise clear. No endobronchial lesions. No pleural effusion or pneumothorax. No acute osseous findings. Small esophageal hiatal hernia. Calcified granulomas in the spleen. IMPRESSION: 1. No pulmonary emboli. 2. Stable ectasia of the ascending thoracic aorta measuring up to 3.9 cm. No thoracic aortic dissection. 3. Mild dependent atelectasis in the lung bases. Dictated by: Dictated on workstation # [id number]
[2022-08-03] MEDS ORDERED: NITROGLYCERIN 0.4 MG SL TABS BTL 25'S SL PRN (12:15)
[2022-08-03 12:21] LABS: FREE T4 (FREE THYROXINE) 0.99 NG/DL (0.70-1.48)
[2022-08-03 13:31] LABS: ABG BASE EXCESS -2.2 MMOL/L (-2.5-2.5); ABG OXYGEN SATURATION 94 % (94-100); ABG PCO2 37 MMHG (35-45); ABG PH 7.39 (7.37-7.43); ABG PO2 67 MMHG (79-93); ABG TCO2 23.3 MMOL/L (21.0-31.0)
[2022-08-03 13:32] LABS: ALLENS TEST POSITIVE
[2022-08-03 13:33] LABS: PATIENT TEMP 36.5; VENTILATOR NO
[2022-08-03] MEDS ORDERED: cefTRIAXone IV/IM 1,000 MG in NS (IVPB) 50 ML IV STA (13:45)
--- NOTE | 2022-08-03 13:50 | History & Physical ---
History of Present Illness HPI/Chief Complaint Chief complaint: Neck and back pain HPI: This is a 77-year-old female clinic patient of mine with hypothyroidism, hypertension, PVCs, fibromyalgia and depression who presented to the ER with neck and back pain. She appeared to be very dusky in appearance and considering my suspicion of something critical she completed entire work-up to rule out any type of aortic aneurysm and cardiac injury but it appears that CT scan showed atelectasis and thin late entry of lactic acid was elevated she had findings consistent with pneumonia and likely dehydration prevented the infiltrate from forming on chest x-ray and will be placed on empiric antibiotics and supportive care with IV fluid. Source: patient, family, RN/MD, old records Date Seen 08/03/22 Time Seen by a Provider: 14:00 Attending Physician Ewa James DO PCP Admitting Physician: Attending Physician: Referring Physician Date of Admission Home Medications & Allergies Home Medications Reviewed patient Home Medication Reconciliation performed by pharmacy medication reconciliations railway signal technician and/or nursing. Patients Allergies have been reviewed. Allergies Allergies Coded Allergies Sulfa (Sulfonamide Antibiotics) (Unverified Allergy, Unknown, 11/25/17) ciprofloxacin (Unverified Allergy, Unknown, 11/25/17) Past [id number] Hx Past Med/Social Hx: Reviewed Nursing Past Med/Soc Hx, Reviewed and Corrections made Patient Social History Marrital Status: Employed/Student: retired Alcohol Use: Denies Use Smoking Status: Never a Smoker Recent Hopitalizations: No Immunizations Up To Date Tetanus Booster (TDap): Unknown Date of Pneumonia Vaccine: Nov 02, 2017 Date of Influenza Vaccine: Dec 02, 2018 Seasonal Allergies Seasonal Allergies: Yes Past Medical History Surgeries: Tubal Ligation Cardiac: High Cholesterol, Hypertension Reproductive: No Sexually Transmitted Disease: No HIV/AIDS: No Tubal Ligation Gastrointestinal: Chronic Constipation Musculoskeletal: Arthritis, Fibromyalgia Endocrine: Hypothyroidsim Loss of Vision: Bilateral Hearing Impairment: Denies History of Blood Disorders: No Adverse Reaction to Blood Leno: No (N/A) Family History Diabetes Review of Systems Constitutional: see HPI, dizziness, malaise, weakness EENTM: no symptoms reported Respiratory: dyspnea on exertion Cardiovascular: no symptoms reported Gastrointestinal: no symptoms reported Genitourinary: no symptoms reported Musculoskeletal: back pain, muscle weakness, neck pain Skin: no symptoms reported Psychiatric/Neurological: Anxiety All Other Systems Reviewed Negative Unless Noted: Yes Physical Exam Physical Exam Vital Signs Vital Signs - First Documented 08/03/22 08/03/22 10:46 15:00 Temp 36.5 Pulse 84 Resp 20 B/P (MAP) 121/71 (88) Pulse Ox 98 O2 Delivery Room Air O2 Flow Rate 2.00 Capillary Refill : Height, Weight, BMI Height: 5'10.00" Weight: 165lbs. 2.0oz. [id number]; 28.00 BMI Method:Stated General Appearance: WD/WN, Anxious, Chronically ill, Mild Distress, Other (fisher and ashen) Eyes: Bilateral Eye Normal Inspection, Bilateral Eye PERRL HEENT: PERRL/EOMI, Normal ENT Inspection, Pharynx Normal Neck: Full Range of Motion, Normal Inspection, Non Tender, Supple, Carotid Bruit Respiratory: Chest Non Tender, Normal Breath Sounds, No Accessory Muscle Use, No Respiratory Distress, Decreased Breath Sounds Cardiovascular: Regular Rate, Rhythm, No Edema, No Gallop, No JVD, No Murmur, Normal Peripheral Pulses Gastrointestinal: Normal Bowel Sounds, No Organomegaly, No Pulsatile Mass, Non Tender, Soft Back: Normal Inspection, No CVA Tenderness, No Vertebral Tenderness Extremity: Normal Capillary Refill, Normal Inspection, Normal Range of Motion, Non Tender, No Calf Tenderness, No Pedal Edema Neurologic/Psychiatric: Alert, Oriented x3, No Motor/Sensory Deficits, Normal 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 Assessment/Plan Admission Diagnosis Assessment: Sepsis presenting as neck and back pain in atypical fashion Bilateral pneumonia Hypothyroidism Fibromyalgia Hypertension PVCs Depression Plan: Cardiac stepdown IV fluids IV antibiotics Monitor closely Admission Status: Observation Clinical Quality Measures AMI/AHF: ASA po Prior to arrival: Yes (81 MG) EWA JAMES DO Aug 03, 2022 13:50
[2022-08-03 14:02] LABS: BILIRUBIN,URINE NEGATIVE (NEGATIVE); CLARITY,URINE SL CLOUDY; COLOR,URINE DARK YELLOW; GLUCOSE, URINE (UA) NEGATIVE (NEGATIVE); KETONES,URINE NEGATIVE (NEGATIVE); LEUKOCYTE ESTERASE ,URINE NEGATIVE (NEGATIVE); NITRITE,URINE NEGATIVE (NEGATIVE); PH,URINE 5.5 (5-9); PROTEIN,URINE NEGATIVE (NEGATIVE)
[2022-08-03 14:10] LABS: BACTERIA,URINE TRACE /HPF
[2022-08-03 14:11] LABS: AMORPHOUS SEDIMENT,UR FEW AMOR URATES /LPF
[2022-08-03 14:20] LABS: CREATINE KINASE 78 U/L (29-168)
[2022-08-03] MEDS ORDERED: NS IV 500 ML 500 ML IV ONE (14:30)
[2022-08-03] MEDS ORDERED: MILK OF MAGNESIA 400 MG/5 ML 30 ML UDC PO PRN (15:00)
[2022-08-03] MEDS ORDERED: CALCIUM CARBONATE 500 MG (TUMS) TAB.CHEW PO PRN (15:00)
[2022-08-03] MEDS ORDERED: diphenhydrAMINE 50 MG/ML INJ (BENADRYL) IVP PRN (15:00)
[2022-08-03] MEDS ORDERED: polyethylene glycoL POWDER 17 GM (MIRALAX) PACK PO PRN (15:00)
[2022-08-03] MEDS ORDERED: ONDANSETRON 4 MG (ZOFRAN) ORAL DISSOLVE TAB PO PRN (15:00)
[2022-08-03] MEDS ORDERED: BISACODYL 10 MG SUPP (DULCOLAX) PR PRN (15:00)
[2022-08-03] MEDS ORDERED: ONDANSETRON 4 MG/2 ML (SDV) Z0FRAN IV PRN (15:00)
[2022-08-03] MEDS ORDERED: ANTACID SUSP 30 ML UDC (MYLANTA) PO PRN (15:00)
[2022-08-03] MEDS ORDERED: MELATONIN 3 MG TABLET PO PRN (15:00)
[2022-08-03] MEDS ORDERED: HYDROmorphone 2 MG/ML VIAL (DILAUDID) IV PRN (15:00)
[2022-08-03] MEDS ORDERED: LACTULOSE SYRUP 10GM/15ML (ENULOSE) 30ML UDC PO PRN (15:00)
[2022-08-03] MEDS ORDERED: ALPRAZolam 0.25 MG (XANAX) TAB PO PRN (15:00)
[2022-08-03] MEDS ORDERED: diphenhydrAMINE 25 MG TAB (BENADRYL) PO PRN (15:00)
[2022-08-03] MEDS: NS IV 1000 ML 1,000 ML IV SCH (15:59)
[2022-08-03] MEDS: ENOXAPARIN 40 MG/0.4 ML (LOVENOX) SYR SC SCH (15:59)
[2022-08-03] MEDS ORDERED: AZITHROMYCIN INJECTION 500 MG in NS (IVPB) 250 ML IV ONE (16:00)
[2022-08-03 16:10] LABS: BASOPHILS % (AUTO) 0 % (0-10); EOSINOPHILS % (AUTO) 0 % (0-10); HEMATOCRIT 39 % (35-52); HEMOGLOBIN 12.9 g/dL (11.5-16.0); LYMPHOCYTES # (AUTO) 1.7 10^3/uL (1.0-4.0); LYMPHOCYTES % (AUTO) 11 % (12-44); MEAN CORPUSCULAR HEMOGLOBIN 31 pg (25-34); MEAN CORPUSCULAR HGB CONC 33 g/dL (32-36); MEAN CORPUSCULAR VOLUME 95 fL (80-99); MEAN PLATELET VOLUME 10.3 fL (9.0-12.2); MONOCYTES # (AUTO) 2.1 10^3/uL (0.0-1.0); MONOCYTES % (AUTO) 13 % (0-12); NEUTROPHILS % (AUTO) 76 % (42-75); PLATELET COUNT 165 10^3/uL (130-400); WHITE BLOOD COUNT 15.9 10^3/uL (4.3-11.0)
[2022-08-03 16:16] LABS: POTASSIUM 4.4 MMOL/L (3.6-5.0)
[2022-08-03 16:17] LABS: CALCIUM 8.7 MG/DL (8.5-10.1)
[2022-08-03 16:21] LABS: CREATININE SERUM 1.15 MG/DL (0.60-1.30)
[2022-08-03] MEDS: ACETAMINOPHEN 325 MG TABLET PO PRN ×3 (16:55→21:42)
[2022-08-03] MEDS ORDERED: RT-ALBUTEROL/IPRATROPIUM 3 ML (DUONEB) VIAL INH PRN (17:00)
[2022-08-03] MEDS: DOCUSATE SODIUM 100 MG (COLACE) CAP PO SCH (21:40)
[2022-08-03] MEDS: SENNOSIDES 8.6 MG (SENOKOT) TAB PO SCH (21:41)
[2022-08-03] MEDS: RT-ALBUTEROL/IPRATROPIUM 3 ML (DUONEB) VIAL INH SCH (22:09)
[2022-08-04] VITALS (8 sets, daily range): BP systolic 107–139; BP diastolic 51–68
[2022-08-04] MEDS: NS IV 1000 ML 1,000 ML IV SCH ×2 (00:38→08:00)
[2022-08-04] MEDS: RT-ALBUTEROL/IPRATROPIUM 3 ML (DUONEB) VIAL INH SCH ×4 (02:54→20:19)
[2022-08-04 05:22] LABS: BASOPHILS % (AUTO) 0 % (0-10); EOSINOPHILS % (AUTO) 0 % (0-10); HEMATOCRIT 34 % (35-52); HEMOGLOBIN 11.1 g/dL (11.5-16.0); LYMPHOCYTES # (AUTO) 1.5 10^3/uL (1.0-4.0); LYMPHOCYTES % (AUTO) 19 % (12-44); MEAN CORPUSCULAR HEMOGLOBIN 31 pg (25-34); MEAN CORPUSCULAR HGB CONC 33 g/dL (32-36); MEAN CORPUSCULAR VOLUME 96 fL (80-99); MEAN PLATELET VOLUME 10.1 fL (9.0-12.2); MONOCYTES # (AUTO) 1.4 10^3/uL (0.0-1.0); MONOCYTES % (AUTO) 17 % (0-12); NEUTROPHILS # (AUTO) 5.3 10^3/uL (1.8-7.8); NEUTROPHILS % (AUTO) 64 % (42-75); PLATELET COUNT 145 10^3/uL (130-400); WHITE BLOOD COUNT 8.2 10^3/uL (4.3-11.0)
[2022-08-04 05:44] LABS: ALBUMIN 2.7 GM/DL (3.2-4.5); CALCIUM 8.3 MG/DL (8.5-10.1); CREATININE SERUM 1.17 MG/DL (0.60-1.30); POTASSIUM 3.9 MMOL/L (3.6-5.0); TOTAL PROTEIN 5.3 GM/DL (6.4-8.2)
--- NOTE | 2022-08-04 05:46 | Progress Note ---
Subjective Date Seen by a Provider: Aug 04, 2022 Time Seen by a Provider: 09:00 Subjective/Events-last exam Patient feels a lot better Pain in her neck and upper back continue IV antibiotics tolerated Appreciate cardiology Moving to fourth floor Review of Systems General: Fatigue, Malaise Focused Exam Lactate Level 08/03/22 13:50: Lactic Acid Level 3.15*H 08/03/22 15:57: Lactic Acid Level 1.86 Time of Focused Exam: 14:38 Objective Exam Last Set of Vital Signs Vital Signs Date Time Temp Pulse Resp B/P (MAP) Pulse Ox O2 Delivery O2 Flow Rate FiO2 08/04/22 04:00 70 14 114/61 (78) 94 Nasal Cannula 2.00 08/04/22 03:35 36.7 08/03/22 15:49 21 Capillary Refill : Less Than 3 Seconds I&O Intake and Output 08/04/22 00:00 Intake Total 2100 ml Balance 2100 ml Intake Oral 300 ml IV Total 1800 ml # Voids 1 Daily Weight Change No General: Alert, Oriented X3, Cooperative, No Acute Distress Lungs: Clear to Auscultation, Normal Air Movement Heart: Regular Rate, Normal S1, Normal S2, No Murmurs Psych/Mental Status: Mental Status NL, Mood NL Results Lab Laboratory Tests 08/03/22 10:50: White Blood Count 15.2H, Red Blood Count 4.57, Hemoglobin 14.3, Hematocrit 43, Mean Corpuscular Volume 94, Mean Corpuscular Hemoglobin 31, Mean Corpuscular Hemoglobin Concent 33, Red Cell Distribution Width 14.6H, Platelet Count 183, Mean Platelet Volume 9.7, Immature Granulocyte % (Auto) 1, Neutrophils (%) (Auto) 81H, Lymphocytes (%) (Auto) 8L, Monocytes (%) (Auto) 10, Eosinophils (%) (Auto) 0, Basophils (%) (Auto) 0, Neutrophils # (Auto) 12.3H, Lymphocytes # (Auto) 1.2, Monocytes # (Auto) 1.6H, Eosinophils # (Auto) 0.0, Basophils # (Auto) 0.0, Immature Granulocyte # (Auto) 0.1, Neutrophils % (Manual) 75, Lymphocytes % (Manual) 13, Monocytes % (Manual) 10, Reactive Lymphocytes 2, Blood Morphology Comment NORMAL, Prothrombin Time 14.5, INR Comment 1.1, Activated Partial Thromboplast Time 29, D-Dimer 1.32H, Sodium Level 138, Potassium Level 4.0, Chloride Level 104, Carbon Dioxide Level 21, Anion Gap 13, Blood Urea Nitrogen 21H, Creatinine 1.30, Estimat Glomerular Filtration Rate 42, BUN/Creatinine Ratio 16, Glucose Level 156H, Calcium Level 9.4, Corrected Calcium 9.7, Magnesium Level 2.0, Total Bilirubin 1.2H, Aspartate Amino Transf (AST/SGOT) 44H, Alanine Aminotransferase (ALT/SGPT) 26, Alkaline Phosphatase 164H, Lactate Dehydrogenase 302H, Total Creatine Kinase 78, Myoglobin 81.2, Troponin I < 0.028, C-Reactive Protein High Sensitivity 1.06H, Total Protein 7.2, Albumin 3.6, Thyroid Stimulating Hormone (TSH) 1.02, Free Thyroxine 0.99 08/03/22 11:00: Influenza Type A (RT-PCR) Not Detected, Influenza Type B (RT-PCR) Not Detected, SARS-CoV-2 RNA (RT-PCR) Not Detected 08/03/22 13:23: Blood Gas Puncture Site RIGHT RADIAL, Blood Gas Patient Temperature 36.5, Arterial Blood pH 7.39, Arterial Blood Partial Pressure CO2 37, Arterial Blood Partial Pressure O2 67L, Arterial Blood HCO3 22L, Arterial Blood Total CO2 23.3, Arterial Blood Oxygen Saturation 94, Arterial Blood Base Excess -2.2, Luc Test POSITIVE, Blood Gas Ventilator Setting NO, Blood Gas Inspired Oxygen N/A 08/03/22 13:50: Urine Color DARK YELLOW, Urine Clarity SL CLOUDY, Urine pH 5.5, Urine Specific [place] 1.010L, Urine Protein NEGATIVE, Urine Glucose (UA) NEGATIVE, Urine Ketones NEGATIVE, Urine Nitrite NEGATIVE, Urine Bilirubin NEGATIVE, Urine Urobilinogen 0.2, Urine Leukocyte Esterase NEGATIVE, Urine RBC (Auto) TRACE-IH, Urine RBC 2-5H, Urine WBC NONE, Urine Squamous Epithelial Cells 5-10, Urine Crystals PRESENTH, Urine Amorphous Sediment FEW DAVIDA URATESH, Urine Bacteria TRA CE, Urine Casts NONE, Urine Mucus NEGATIVE, Urine Culture Indicated CULTURE PENDING, Lactic Acid Level 3.15*H 08/03/22 15:57: White Blood Count 15.9H, Red Blood Count 4.11, Hemoglobin 12.9, Hematocrit 39, Mean Corpuscular Volume 95, Mean Corpuscular Hemoglobin 31, Mean Corpuscular Hemoglobin Concent 33, Red Cell Distribution Width 14.7H, Platelet Count 165, Mean Platelet Volume 10.3, Immature Granulocyte % (Auto) 0, Neutrophils (%) (Auto) 76H, Lymphocytes (%) (Auto) 11L, Monocytes (%) (Auto) 13H, Eosinophils (%) (Auto) 0, Basophils (%) (Auto) 0, Neutrophils # (Auto) 12.0H, Lymphocytes # (Auto) 1.7, Monocytes # (Auto) 2.1H, Eosinophils # (Auto) 0.0, Basophils # (Auto) 0.0, Immature Granulocyte # (Auto) 0.1, Sodium Level 136, Potassium Level 4.4, Chloride Level 105, Carbon Dioxide Level 24, Anion Gap 7, Blood Urea Nitrogen 18, Creatinine 1.15, Estimat Glomerular Filtration Rate 49, BUN/Creatinine Ratio 16, Glucose Level 141H, Lactic Acid Level 1.86, Calcium Level 8.7 08/04/22 04:14: White Blood Count 8.2, Red Blood Count 3.55L, Hemoglobin 11.1L, Hematocrit 34L, Mean Corpuscular Volume 96, Mean Corpuscular Hemoglobin 31, Mean Corpuscular Hem oglobin Concent 33, Red Cell Distribution Width 14.7H, Platelet Count 145, Mean Platelet Volume 10.1, Immature Granulocyte % (Auto) 0, Neutrophils (%) (Auto) 64, Lymphocytes (%) (Auto) 19, Monocytes (%) (Auto) 17H, Eosinophils (%) (Auto) 0, Basophils (%) (Auto) 0, Neutrophils # (Auto) 5.3, Lymphocytes # (Auto) 1.5, Monocytes # (Auto) 1.4H, Eosinophils # (Auto) 0.0, Basophils # (Auto) 0.0, Immature Granulocyte # (Auto) 0.0, Sodium Level 140, Potassium Level 3.9, Carbon Dioxide Level 22, Anion Gap 7, Blood Urea Nitrogen 17, Creatinine 1.17, Estimat Glomerular Filtration Rate 48, BUN/Creatinine Ratio 15, Glucose Level 109H, Calcium Level 8.3L, Corrected Calcium 9.3, Total Bilirubin 1.0, Aspartate Amino Transf (AST/SGOT) 31, Alanine Aminotransferase (ALT/SGPT) 17, Alkaline Phosphatase 115, Total Protein 5.3L, Albumin 2.7L, Triglycerides Level 50, Cholesterol Level 105, LDL Cholesterol Direct 42, VLDL Cholesterol 10, HDL Cholesterol 46 Assessment/Plan Assessment/Plan Assess & Plan/Chief Complaint Assessment: Sepsis presenting as neck and back pain in atypical fashion Bilateral pneumonia Hypothyroidism Fibromyalgia Hypertension PVCs Depression Plan: Move to 4th floor HLIV fluids IV antibiotics Monitor closely Ambulate Clinical Quality Measures AMI/AHF: ASA po Prior to arrival: Yes (81 MG) FRANTZ OCHOA DO Aug 04, 2022 05:46
[2022-08-04] MEDS: ACETAMINOPHEN 325 MG TABLET PO PRN ×2 (06:32→20:00)
--- NOTE | 2022-08-04 08:31 | Diagnostic Imaging Report ---
INDICATION: Pneumonia. Comparison is made with prior exam of 08/03/2022 FINDINGS: There is cardiomegaly. There is mild venous congestion. There is some patchy bibasilar subsegmental atelectasis and/or pneumonitis. There is no pneumothorax. The mediastinum is unremarkable. IMPRESSION: Cardiomegaly and mild venous congestion with some patchy bibasilar subsegmental atelectasis and/or pneumonitis. Dictated by: Dictated on workstation # [id number]
--- NOTE | 2022-08-04 08:57 | Consultation-Cardiology ---
HPI-Cardiology Cardiology Consultation Date of Consultation 08/04/22 Date of Admission Time Seen by Provider: 08:52 Indication: Chest pain HPI 77-year-old lady with history of hypertension, fibromyalgia, depression. Did not feel well, had upper back pain and neck pain and upper chest pain. Came into the emergency room, she appeared dusky. Work-up suggested of pneumonia and she was started on antibiotics. On my evaluation she was laying down in bed, still having neck pain and upper back pain. No shortness of breath. No cough or sputum. No fever or chills. Home Medications & Allergies Allergies: Coded Allergies: Sulfa (Sulfonamide Antibiotics) (Unverified Allergy, Unknown, 11/25/17) ciprofloxacin (Unverified Allergy, Unknown, 11/25/17) Home Medication List Reviewed: Yes [id number] Hx Patient Social History Marital Status: Employed/Student: retired Smoking Status: Never a Smoker Recent Hopitalizations: No Alcohol Use?: No Immunizations Up To Date Tetanus Booster (TDap): Unknown Date of Pneumonia Vaccine: Nov 02, 2017 Date of Influenza Vaccine: Dec 02, 2018 Past Medical History Discussed below Family Medical History Significant Family History: No Pertinent Family Hx, Diabetes Review of Systems-General Review of Systems Constitutional: see HPI, dizziness, malaise, weakness EENTM: no symptoms reported Respiratory: dyspnea on exertion Cardiovascular: see HPI, chest pain; No edema, No Hx of Intervention, No palpitations, No syncope, No vascular heart diseas, No other Gastrointestinal: no symptoms reported Genitourinary: no symptoms reported Musculoskeletal: back pain, muscle stiffness, muscle weakness, neck pain Skin: no symptoms reported Psychiatric/Neurological: Anxiety, Depressed, Headache All Other Systems Reviewed Negative Unless Noted: Yes Reviewed Test Results Reviewed Test Results Lab Laboratory Tests Test 08/03/22 10:50 08/03/22 11:00 08/03/22 13:23 08/03/22 13:50 Range/Units White Blood Count 15.2 H 4.3-11.0 10^3/uL Red Blood Count 4.57 3.80-5.11 10^6/uL Hemoglobin 14.3 11.5-16.0 g/dL Hematocrit 43 35-52 % Mean Corpuscular Volume 94 80-99 fL Mean Corpuscular Hemoglobin 31 25-34 pg Mean Corpuscular Hemoglobin Concent 33 32-36 g/dL Red Cell Distribution Width 14.6 H 10.0-14.5 % Platelet Count 183 130-400 10^3/uL Mean Platelet Volume 9.7 9.0-12.2 fL Immature Granulocyte % (Auto) 1 % Neutrophils (%) (Auto) 81 H 42-75 % Lymphocytes (%) (Auto) 8 L 12-44 % Monocytes (%) (Auto) 10 0-12 % Eosinophils (%) (Auto) 0 0-10 % Basophils (%) (Auto) 0 0-10 % Neutrophils # (Auto) 12.3 H 1.8-7.8 10^3/uL Lymphocytes # (Auto) 1.2 1.0-4.0 10^3/uL Monocytes # (Auto) 1.6 H 0.0-1.0 10^3/uL Eosinophils # (Auto) 0.0 0.0-0.3 10^3/uL Basophils # (Auto) 0.0 0.0-0.1 10^3/uL Immature Granulocyte # (Auto) 0.1 0.0-0.1 10^3/uL Neutrophils % (Manual) 75 % Lymphocytes % (Manual) 13 % Monocytes % (Manual) 10 % Reactive Lymphocytes 2 % Blood Morphology Comment NORMAL Prothrombin Time 14.5 12.2-14.7 SEC INR Comment 1.1 0.8-1.4 Activated Partial Thromboplast Time 29 24-35 SEC D-Dimer 1.32 H 0.00-0.49 UG/ML Sodium Level 138 135-145 MMOL/L Potassium Level 4.0 3.6-5.0 MMOL/L Chloride Level 104 98-107 MMOL/L Carbon Dioxide Level 21 21-32 MMOL/L Anion Gap 13 5-14 MMOL/L Blood Urea Nitrogen 21 H 7-18 MG/DL Creatinine 1.30 0.60-1.30 MG/DL Estimat Glomerular Filtration Rate 42 BUN/Creatinine Ratio 16 Glucose Level 156 H 70-105 MG/DL Calcium Level 9.4 8.5-10.1 MG/DL Corrected Calcium 9.7 8.5-10.1 MG/DL Magnesium Level 2.0 1.6-2.4 MG/DL Total Bilirubin 1.2 H 0.1-1.0 MG/DL Aspartate Amino Transf (AST/SGOT) 44 H 5-34 U/L Alanine Aminotransferase (ALT/SGPT) 26 0-55 U/L Alkaline Phosphatase 164 H 40-136 U/L Lactate Dehydrogenase 302 H 125-220 U/L Total Creatine Kinase 78 29-168 U/L Myoglobin 81.2 10.0-92.0 NG/ML Troponin I < 0.028 <0.028 NG/ML C-Reactive Protein High Sensitivity 1.06 H 0.00-0.50 MG/DL Total Protein 7.2 6.4-8.2 GM/DL Albumin 3.6 3.2-4.5 GM/DL Thyroid Stimulating Hormone (TSH) 1.02 0.35-4.94 UIU/ML Free Thyroxine 0.99 0.70-1.48 NG/DL Influenza Type A (RT-PCR) Not Detected Not Detecte Influenza Type B (RT-PCR) Not Detected Not Detecte SARS-CoV-2 RNA (RT-PCR) Not Detected Not Detecte Blood Gas Puncture Site RIGHT RADIAL Blood Gas Patient Temperature 36.5 Arterial Blood pH 7.39 7.37-7.43 Arterial Blood Partial Pressure CO2 37 35-45 MMHG Arterial Blood Partial Pressure O2 67 L 79-93 MMHG Arterial Blood HCO3 22 L 23-27 MMOL/L Arterial Blood Total CO2 23.3 21.0-31.0 MMOL/L Arterial Blood Oxygen Saturation 94 94-100 % Arterial Blood Base Excess -2.2 -2.5-2.5 MMOL/L Luc Test POSITIVE Blood Gas Ventilator Setting NO Blood Gas Inspired Oxygen N/A Urine Color DARK YELLOW Urine Clarity SL CLOUDY Urine pH 5.5 5-9 Urine Specific [place] 1.010 L 1.016-1.022 Urine Protein NEGATIVE NEGATIVE Urine Glucose (UA) NEGATIVE NEGATIVE Urine Ketones NEGATIVE NEGATIVE Urine Nitrite NEGATIVE NEGATIVE Urine Bilirubin NEGATIVE NEGATIVE Urine Urobilinogen 0.2 < = 1.0 MG/DL Urine Leukocyte Esterase NEGATIVE NEGATIVE Urine RBC (Auto) TRACE-I H NEGATIVE Urine RBC 2-5 H /HPF Urine WBC NONE /HPF Urine Squamous Epithelial Cells 5-10 /HPF Urine Crystals PRESENT H /LPF Urine Amorphous Sediment FEW DAVIDA URATES H /LPF Urine Bacteria TRACE /HPF Urine Casts NONE /LPF Urine Mucus NEGATIVE /LPF Urine Culture Indicated CULTURE PENDING Lactic Acid Level 3.15 *H 0.50-2.00 MMOL/L Test 08/03/22 15:57 08/04/22 04:14 Range/Units White Blood Count 15.9 H 8.2 4.3-11.0 10^3/uL Red Blood Count 4.11 3.55 L 3.80-5.11 10^6/uL Hemoglobin 12.9 11.1 L 11.5-16.0 g/dL Hematocrit 39 34 L 35-52 % Mean Corpuscular Volume 95 96 80-99 fL Mean Corpuscular Hemoglobin 31 31 25-34 pg Mean Corpuscular Hemoglobin Concent 33 33 32-36 g/dL Red Cell Distribution Width 14.7 H 14.7 H 10.0-14.5 % Platelet Count 165 145 130-400 10^3/uL Mean Platelet Volume 10.3 10.1 9.0-12.2 fL Immature Granulocyte % (Auto) 0 0 % Neutrophils (%) (Auto) 76 H 64 42-75 % Lymphocytes (%) (Auto) 11 L 19 12-44 % Monocytes (%) (Auto) 13 H 17 H 0-12 % Eosinophils (%) (Auto) 0 0 0-10 % Basophils (%) (Auto) 0 0 0-10 % Neutrophils # (Auto) 12.0 H 5.3 1.8-7.8 10^3/uL Lymphocytes # (Auto) 1.7 1.5 1.0-4.0 10^3/uL Monocytes # (Auto) 2.1 H 1.4 H 0.0-1.0 10^3/uL Eosinophils # (Auto) 0.0 0.0 0.0-0.3 10^3/uL Basophils # (Auto) 0.0 0.0 0.0-0.1 10^3/uL Immature Granulocyte # (Auto) 0.1 0.0 0.0-0.1 10^3/uL Sodium Level 136 140 135-145 MMOL/L Potassium Level 4.4 3.9 3.6-5.0 MMOL/L Chloride Level 105 111 H 98-107 MMOL/L Carbon Dioxide Level 24 22 21-32 MMOL/L Anion Gap 7 7 5-14 MMOL/L Blood Urea Nitrogen 18 17 7-18 MG/DL Creatinine 1.15 1.17 0.60-1.30 MG/DL Estimat Glomerular Filtration Rate 49 48 BUN/Creatinine Ratio 16 15 Glucose Level 141 H 109 H 70-105 MG/DL Lactic Acid Level 1.86 0.50-2.00 MMOL/L Calcium Level 8.7 8.3 L 8.5-10.1 MG/DL Corrected Calcium 9.3 8.5-10.1 MG/DL Total Bilirubin 1.0 0.1-1.0 MG/DL Aspartate Amino Transf (AST/SGOT) 31 5-34 U/L Alanine Aminotransferase (ALT/SGPT) 17 0-55 U/L Alkaline Phosphatase 115 40-136 U/L Total Protein 5.3 L 6.4-8.2 GM/DL Albumin 2.7 L 3.2-4.5 GM/DL Triglycerides Level 50 <150 MG/DL Cholesterol Level 105 < 200 MG/DL LDL Cholesterol Direct 42 1-129 MG/DL VLDL Cholesterol 10 5-40 MG/DL HDL Cholesterol 46 40-60 MG/DL Physical Exam Physical Exam Vital Signs Vital Signs - First Documented 08/03/22 08/03/22 08/03/22 10:46 14:40 15:49 Temp 36.5 Pulse 84 Resp 20 B/P (MAP) 121/71 (88) Pulse Ox 98 O2 Delivery Room Air O2 Flow Rate 2.00 FiO2 21 Capillary Refill : Less Than 3 Seconds Height, Weight, BMI Height: 5'10.00" Weight: 165lbs. 2.0oz. 74.537247dc; 27.05 BMI Method:Stated General Appearance: WD/WN, Anxious, Chronically ill, Mild Distress, Other (fisher and ashen) Eyes: Bilateral Eye Normal Inspection, Bilateral Eye PERRL HEENT: PERRL/EOMI, Normal ENT Inspection, Pharynx Normal Neck: Full Range of Motion, Normal Inspection, Non Tender, Supple, Carotid Bruit Respiratory: Chest Non Tender, Normal Breath Sounds, No Accessory Muscle Use, No Respiratory Distress, Decreased Breath Sounds Cardiovascular: Regular Rate, Rhythm, No Edema, No Gallop, No JVD, No Murmur, Normal Peripheral Pulses Gastrointestinal: Normal Bowel Sounds, No Organomegaly, No Pulsatile Mass, Non Tender, Soft Back: Normal Inspection, No CVA Tenderness, No Vertebral Tenderness Extremity: Normal Capillary Refill, Normal Inspection, Normal Range of Motion, Non Tender, No Calf Tenderness, No Pedal Edema Neurologic/Psychiatric: Alert, Oriented x3, No Motor/Sensory Deficits, Normal 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 Generalized body ache and upper chest pain. Had a stress test done in November 2021 showing no significant ischemia or infarction Pneumonia, receiving antibiotic Managed by primary care team Palpitations, patient was seen with Dr. Das and in the past. Has history of PVCs and ventricular bigeminy. Reporting improvement. Continue to monitor Paroxysmal atrial fibrillation, had a loop recorder implanted in February 2019, has been off oral anticoagulation using aspirin. Continue to have the oral anticoagulation to be used as needed only. Continue to monitor telemetry [id number] score of 3 based on age and female. No further episode of atrial fibrillation was documented. Continue to monitor Dyspnea on exertion, Stress test was done on December 09, 2021 with extracardiac attenuation and no significant ischemia or infarction on SPECT images stress score 5, SDS 1, ejection fraction 77% 2D echo was done on November 20, 2021 with normal LV size, ejection fraction 55 to 60%, grade 1 diastolic dysfunction, mild to moderate aortic regurgitation, PA pressure 25 to 30 mmHg, aortic root measurement 3.7 cm has not changed compared to the study that was done the year before in 2020 Peripheral edema, patient is maintained on verapamil Using Lasix, overall edema is better Questionable pulmonary hypertension noted on echocardiogram in [facility] subsequently she was referred for pulmonary evaluation and workup was normal PFT then she was referred for right heart catheterization which reported normal pulmonary artery pressure. Last echo was done repeat echocardiogram confirmed normal PA pressure, in 2021 her PA pressure was 20 mmHg Mild bilateral carotid stenosis, last checkup was done in October 2021. Continue to monitor Dilated thoracic aorta measuring 4 cm on echocardiogram. Upon reviewing her record it seems that the patient had a CT scan of the chest done on May 24, 2014 reported thoracic aorta prominent reaching 3.6 cm in diameter, no significant aneurysm, prominent lymph node in the mediastinum. Continue to monitor at this time, no changes are recommended. Continue to monitor. Repeat CT scan was done on November 20, 2021 with minimal increase in ectasia and ascending aorta measuring up to 3.9 cm, no dissection or significant stenosis, peripheral predominant reticulation and granulate throughout the lung which can be seen in atelectasis. Questionable underlying interstitial disease. History of PVCs/bigeminy-maintained on verapamil. Had intolerance to beta blockers in the past secondary to bradycardia. Lipid profile done in September 2021 showing total cholesterol 134, HDL 56, triglyceride 86, LDL 61. Continue to monitor Hypothyroidism, followed and managed by primary care physician. Anxiety History of vitamin D deficiency Clinical Quality Measures AMI/AHF: ASA po Prior to arrival: Yes (81 MG) ERIK WATT MD Aug 04, 2022 08:57
[2022-08-04] MEDS ORDERED: AZITHROMYCIN 250 MG TAB (ZITHROMAX) PO SCH (09:00)
[2022-08-04] MEDS ORDERED: BACLOFEN 10 MG (LIORESAL) TAB PO PRN (09:45)
[2022-08-04] MEDS ORDERED: OMEG12002 PO (09:53)
[2022-08-04] MEDS ORDERED: LEVO75TA6 PO (09:53)
[2022-08-04] MEDS ORDERED: CALC1CAP20 PO (09:53)
[2022-08-04] MEDS ORDERED: MINO100C5 PO (09:53)
[2022-08-04] MEDS ORDERED: CHOL10004 PO (09:53)
[2022-08-04] MEDS ORDERED: POTA-177 PO (09:53)
[2022-08-04] MEDS ORDERED: L.AC1CAP6 PO (09:53)
[2022-08-04] MEDS ORDERED: ATOR10TA66 PO (09:53)
[2022-08-04] MEDS ORDERED: DULO30CA49 PO (09:53)
[2022-08-04] MEDS ORDERED: FURO20TA4 PO (09:53)
[2022-08-04] MEDS ORDERED: ASPI-1238 PO (09:53)
[2022-08-04] MEDS ORDERED: VERA240C4 PO (09:53)
[2022-08-04] MEDS ORDERED: BACLOFEN 10 MG (LIORESAL) TAB PO NR (10:00)
[2022-08-04] MEDS ORDERED: PALMITOYLETHANOLAMID PO (10:06)
[2022-08-04] MEDS: SENNOSIDES 8.6 MG (SENOKOT) TAB PO SCH ×2 (10:18→19:57)
[2022-08-04] MEDS: DOCUSATE SODIUM 100 MG (COLACE) CAP PO SCH ×2 (10:18→19:57)
[2022-08-04] MEDS: AZITHROMYCIN 250 MG TAB (ZITHROMAX) PO SCH (10:18)
--- NOTE | 2022-08-04 14:22 | Physical Therapy Evaluation ---
PT Evaluation-General Medical Diagnosis Admission Date Aug 03, 2022 at 14:41 Medical Diagnosis: pneumonia, sepsis, neck and back pain Onset Date: Aug 03, 2022 Therapy Diagnosis Therapy Diagnosis: debility Height/Weight Height (Feet): 5 Height (Inches): 10.00 Weight (Pounds): 165 Weight (Ounces): 2.0 Precautions Precautions/Isolations: Standard Precautions Referral Physician: Erika Reason for Referral: Evaluation/Treatment Medical History Pertinent Medical History: Hypothroidism Current History ER secondary to neck pain Reviewed History: Yes Social History Home: Single Level Current Living Status: Spouse Entry Into Home: Stairs With Railing PT Steps Into Home: 3 Prior Prior Level of Function SCALE: Activities may be completed with or without assistive devices. 5-Uycnipvhwh-evfxaen completes the activity by him/herself with no assistance from a helper. 5-Set-up or Clean-up Assistance-helper sets up or cleans up; patient completes activity. [place] assists only prior to or following the activity. 4-Supervision or Touching Assistance-helper provides verbal cues and/or touching/steadying and/or contact guard assistance as patient completes activity. Assistance may be provided throughout the activity or intermittently. 3-Partial/Moderate Assistance-helper does LESS THAN HALF the effort. [place] lifts, holds or supports trunk or limbs, but provides less than half the effort. 2-Substantial/Maximal Assistance-helper does MORE THAN HALF the effort. [place] lifts or holds trunk or limbs and provides more than half the effort. 2-Thjlcguls-avpkkm does ALL the effort. Patient does none of the effort to complete the activity. Or, the assistance of 2 or more helpers is required for the patient to complete the activity. If activity was not attempted, code reason: 7-Patient Refused. 9-Not Applicable-not attempted and the patient did not perform the activity before the current illness, exacerbation or injury. 10-Not Attempted due to Environmental Limitations-(lack of equipment, weather restraints, etc.). 88-Not Attempted due to Medical Conditions or Safety Concerns. Bed Mobility: 6 Transfers (B,C,W/C): 6 Gait: 6 Stairs: 6 Indoor Mobility (Ambulation): Independent Stairs: Independent Prior Devices Use: None PT Evaluation-Current Subjective Patient agrees to PT. Objective Patient Orientation: Normal For Age ROM/Strength ROM Lower Extremities bilateral LE WFL Strength Lower Extremities 4/5 grossly bilateral LE all planes Integumentary/Posture Bowel Incontinence: No Bladder Incontinence: No Posture WFL Neuromuscular (Tone, Coordination, Reflexes) grossly intact Sensory Vision: Wears Glasses Hearing: Hearing Aid/Aides Transfers Lying to Sitting/Side of Bed(Q: 6 Sit to Stand (QC): 6 Chair/Jmp-ce-Aqvrg Xfer(QC): 6 Gait Mode of Locomotion: Walk Anticipated Mode of Locomotion: Walk Walk 10 feet (QC): 6 Walk 50 ft with 2 Turns(QC): 6 Walk 150 ft (QC): 6 Distance: >500' Gait Assistive Device: None Comments/Gait Description safe and functional with no deviation Balance Sitting Static: Normal Sitting Dynamic: Normal Standing Static: Normal Standing Dynamic: Normal Assessment/Needs Patient is currently at independent [facility] with all gross motor skills safely and does not require skilled PT intervention at this time. Rehab Potential: Fair PT Plan Treatment/Plan Treatment Plan: Discontinue PT Treatment Duration: Aug 04, 2022 Frequency: 1 time per week Estimated Hrs Per Day: .25 hour per day Patient and/or Family Agrees t: Yes Time Time In: 1338 Time Out: 1351 DATE: Aug 04, 2022 Total Billed Treatment Time: 13 Total Billed Treatment 1 visit EVMod 13 min ERIC ALVAREZ PT Aug 04, 2022 14:22
[2022-08-04] MEDS: ENOXAPARIN 40 MG/0.4 ML (LOVENOX) SYR SC SCH (14:48)
[2022-08-04] MEDS: cefTRIAXone IV/IM 1,000 MG in NS (IVPB) 50 ML IV SCH (14:48)
--- NOTE | 2022-08-04 16:07 | Occupational Therapy Eval ---
OT Evaluation-General/PLF Medical Diagnosis Admission Date Aug 03, 2022 at 14:41 Medical Diagnosis: pneumonia, sepsis, neck and back pain Onset Date: Aug 03, 2022 Therapy Diagnosis Therapy Diagnosis: weakness Height/Weight Height (Feet): 5 Height (Inches): 10.00 Weight (Pounds): 165 Weight (Ounces): 2.0 Precautions Precautions/Isolations: Standard Precautions Weight Bear Status Weight Bearing Restriction: Full Weight Bearing Referral Physician: Erika Referral Reason: Evaluation/Treatment Medical History Pertinent Medical History: Hypothroidism Reviewed History: Yes Social History Home: Single Level Current Living Status: Spouse Entry Into Home: Stairs With Railing Steps Into Home: 3 ADL-Prior Level of Function SCALE: Activities may be completed with or without assistive devices. 1-Wgmljcayhw-zfzisse completes the activity by him/herself with no assistance fr om a helper. 5-Set-up or Clean-up Assistance-helper sets up or cleans up; patient completes activity. [place] assists only prior to or following the activity. 4-Supervision or Touching Assistance-helper provides verbal cues and/or touching/steadying and/or contact guard assistance as patient completes activity. Assistance may be provided throughout the activity or intermittently. 3-Partial/Moderate Assistance-helper does LESS THAN HALF the effort. [place] lifts, holds or supports trunk or limbs, but provides less than half the effort. 2-Substantial/Maximal Assistance-helper does MORE THAN HALF the effort. [place] lifts or holds trunk or limbs and provides more than half the effort. 0-Hnsimizyp-foborg does ALL the effort. Patient does none of the effort to complete the activity. Or, the assistance of 2 or more helpers is required for the patient to complete the activity. If activity was not attempted, code reason: 7-Patient Refused. 9-Not Applicable-not attempted and the patient did not perform the activity before the current illness, exacerbation or injury. 10-Not Attempted due to Environmental Limitations-(lack of equipment, weather restraints, etc.). 88-Not Attempted due to Medical Conditions or Safety Concerns. Self Care: Independent Functional Cognition: Independent Drive Self: No OT Current Status Subjective Agreeable to OT Mental Status/Objective Patient Orientation: Person, Place, Time, Situation Current Glasses/Contacts: Yes Hearing Aids: Yes Dentures/Partials: Yes Upper Extremity ROM BUE ROM WFLS Upper Extremity Coordination INTACT Upper Extremity Sensation INTACT Upper Extremity Strength 4/5 ADL-Treatment Eating (QC): 6 Oral Hygiene (QC): 5 Shower/Bathe Self (QC): 7 Upper Body Dressing (QC): 5 Lower Body Dressing (QC): 5 On/Off Footwear (QC): 5 Toileting Hygiene (QC): 5 WALK IN SHOWER at home, no AD in home no 02 use at home Education OT Patient Education: Modified ADL techniques, Progress toward Goal/Update tx plan, Purpose of tx/functional activities, Reviewed precautions, Rehab process, Safety issues, Transfer techniques Teaching Recipient: Patient Teaching Methods: Discussion Response to Teaching: Verbalize Understanding OT Graphic Artist Goals Detention Goals Eating (QC): 6 Oral Hygiene (QC): 6 Toileting Hygiene (QC): 6 Shower/Bathe Self (QC): 6 Upper Body Dressing (QC): 6 Lower Body Dressing (QC): 6 On/Off Footwear (QC): 6 1=Demonstrate adherence to instructed precautions during ADL tasks. 2=Patient will verbalize/demonstrate understanding of assistive devices/modifications for ADL. 3=Patient will improve strength/tolerance for activity to enable patient to perform ADL's. OT Education/Plan Problem List/Assessment Assessment: Decreased Activ Tolerance, Impaired Self-Care Skills Discharge Recommendations Plan/Recommendations: Continue POC Treatment Plan/Plan of Care Patient would benefit from OT for education, treatment and training to promote independence in ADL's, mobility, safety and/or upper extremity function for A DL's. Plan of Care: ADL Retraining, Functional Mobility, Group Exercise/Act as Ind Treatment Duration: Aug 09, 2022 Frequency: 3 times per week (3-5 times per week) Estimated Hrs Per Day: .25 hour per day Agreement: Yes Rehab Potential: Good Time Start Time: 13:38 Stop Time: 13:50 DATE: Aug 04, 2022 Total Time Billed (hr/min): 12 Billed Treatment Time EVM `ANDREA LOPEZ OT Aug 04, 2022 16:07
[2022-08-05] MEDS: RT-ALBUTEROL/IPRATROPIUM 3 ML (DUONEB) VIAL INH SCH ×4 (02:28→20:18)
[2022-08-05 04:59] VITALS: BP 111/53
[2022-08-05 05:14] LABS: BASOPHILS % (AUTO) 0 % (0-10); EOSINOPHILS # (AUTO) 0.1 10^3/uL (0.0-0.3); EOSINOPHILS % (AUTO) 1 % (0-10); HEMATOCRIT 35 % (35-52); HEMOGLOBIN 11.6 g/dL (11.5-16.0); LYMPHOCYTES # (AUTO) 1.1 10^3/uL (1.0-4.0); LYMPHOCYTES % (AUTO) 16 % (12-44); MEAN CORPUSCULAR HEMOGLOBIN 32 pg (25-34); MEAN CORPUSCULAR HGB CONC 33 g/dL (32-36); MEAN CORPUSCULAR VOLUME 97 fL (80-99); MEAN PLATELET VOLUME 9.9 fL (9.0-12.2); MONOCYTES % (AUTO) 14 % (0-12); NEUTROPHILS # (AUTO) 4.6 10^3/uL (1.8-7.8); NEUTROPHILS % (AUTO) 68 % (42-75); PLATELET COUNT 145 10^3/uL (130-400); WHITE BLOOD COUNT 6.8 10^3/uL (4.3-11.0)
[2022-08-05 05:32] LABS: ALBUMIN 2.7 GM/DL (3.2-4.5); BILIRUBIN,TOTAL 0.5 MG/DL (0.1-1.0); CALCIUM 8.5 MG/DL (8.5-10.1); CREATININE SERUM 1.01 MG/DL (0.60-1.30); POTASSIUM 3.9 MMOL/L (3.6-5.0); TOTAL PROTEIN 5.4 GM/DL (6.4-8.2)
[2022-08-05 08:00] VITALS: BP 103/64
[2022-08-05] MEDS: SENNOSIDES 8.6 MG (SENOKOT) TAB PO SCH ×2 (08:01→19:35)
[2022-08-05] MEDS: DOCUSATE SODIUM 100 MG (COLACE) CAP PO SCH ×2 (08:01→19:35)
[2022-08-05] MEDS: AZITHROMYCIN 250 MG TAB (ZITHROMAX) PO SCH (08:01)
--- NOTE | 2022-08-05 09:51 | Cardiology Progress Note ---
Subjective Date Seen by Provider: Aug 05, 2022 Time Seen by Provider: 08:20 Subjective/Events-last exam Patient is sitting up in bed, denies any chest pain or dyspnea. Reports easy bruising, which has been chronic for her Focused Exam Lactate Level 08/03/22 13:50: Lactic Acid Level 3.15*H 08/03/22 15:57: Lactic Acid Level 1.86 Time of Focused Exam: 14:38 Objective-Cardiology Exam Last Set of Vital Signs Vital Signs 08/03/22 08/05/22 15:49 11:30 Temp 35.9 Pulse 79 Resp 20 B/P (MAP) 97/50 (66) Pulse Ox 96 O2 Delivery Nasal Cannula O2 Flow Rate 1.00 FiO2 21 I&O Intake and Output 08/05/22 00:00 Intake Total 3440 ml Balance 3440 ml Intake Oral 1440 ml IV Total 2000 ml # Voids 5 General: Alert, Oriented X3, Cooperative, No Acute Distress Lungs: Clear to Auscultation, Normal Air Movement Heart: Regular Rate, Normal S1, Normal S2, No Murmurs Psych/Mental Status: Mental Status NL, Mood NL Results Lab Laboratory Tests 08/05/22 05:05 A/P-Cardiology Admission Diagnosis Back pain Chest pain Pneumonia Palpitation Assessment/Plan Upper back pain, neck pain. Generalized body ache and upper chest pain. Had a stress test done in November 2021 showing no significant ischemia or infarction Pneumonia, receiving antibiotic Managed by primary care team Palpitations, patient was seen with Dr. Das and in the past. Has history of PVCs and ventricular bigeminy. Reporting improvement. Continue to monitor Paroxysmal atrial fibrillation, had a loop recorder implanted in February 2019, has been off oral anticoagulation using aspirin. Continue to have the oral anticoagulation to be used as needed only. Continue to monitor telemetry [id number] score of 3 based on age and female. No further episode of atrial fibrillation was documented. Continue to monitor Easy bruising. I will keep patient off of ASA at this time. Dyspnea on exertion, Stress test was done on December 09, 2021 with extracardiac attenuation and no significant ischemia or infarction on SPECT images stress score 5, SDS 1, ejection fraction 77% 2D echo was done on November 20, 2021 with normal LV size, ejection fraction 55 to 60%, grade 1 diastolic dysfunction, mild to moderate aortic regurgitation, PA pressure 25 to 30 mmHg, aortic root measurement 3.7 cm has not changed compared to the study that was done the year before in 2020 Peripheral edema, patient is maintained on verapamil Using Lasix, overall edema is better Questionable pulmonary hypertension noted on echocardiogram in [facility] subsequently she was referred for pulmonary evaluation and workup was normal PFT then she was referred for right heart catheterization which reported normal pulmonary artery pressure. Last echo was done repeat echocardiogram confirmed normal PA pressure, in 2021 her PA pressure was 20 mmHg Mild bilateral carotid stenosis, last checkup was done in October 2021. Continue to monitor Dilated thoracic aorta measuring 4 cm on echocardiogram. Upon reviewing her record it seems that the patient had a CT scan of the chest done on May 24, 2014 reported thoracic aorta prominent reaching 3.6 cm in diameter, no significant aneurysm, prominent lymph node in the mediastinum. Continue to monitor at this time, no changes are recommended. Continue to monitor. Repeat CT scan was done on November 20, 2021 with minimal increase in ectasia and ascending aorta measuring up to 3.9 cm, no dissection or significant stenosis, peripheral predominant reticulation and granulate throughout the lung which can be seen in atelectasis. Questionable underlying interstitial disease. History of PVCs/bigeminy-maintained on verapamil. Had intolerance to beta blockers in the past secondary to bradycardia. Lipid profile done in September 2021 showing total cholesterol 134, HDL 56, triglyceride 86, LDL 61. Continue to monitor Hypothyroidism, followed and managed by primary care physician. Anxiety History of vitamin D deficiency Supervisory-Addendum Brief Supervisory Addendum Participated in pt care: history, MDM, physical Personally performed: exam, history, MDM Care discussed with: KATE Results interpretation: Verified all documentation Notes: Patient was seen and evaluated with Markus, examination performed, management plan was discussed, agree with the current scribed note, I made few changes to the note using Italic font Patient was seen at bedside, sitting comfortably Still having some shortness of breath. No chest pain Continue current medication, monitor blood pressure No changes are recommended MARKUS CHICAS Aug 05, 2022 09:51 ERIK WATT MD Aug 05, 2022 12:40
[2022-08-05 11:30] VITALS: BP 97/50
--- NOTE | 2022-08-05 11:51 | Progress Note ---
Subjective Date Seen by a Provider: Aug 05, 2022 Time Seen by a Provider: 11:45 Subjective/Events-last exam Patient doing a lot better We will ambulate and check home O2 evaluation Weak still Brooks and ashen appearance still present Responded to IV antibiotics Review of Systems General: Fatigue, Malaise Focused Exam Lactate Level 08/03/22 13:50: Lactic Acid Level 3.15*H 08/03/22 15:57: Lactic Acid Level 1.86 Time of Focused Exam: 14:38 Objective Exam Last Set of Vital Signs Vital Signs Date Time Temp Pulse Resp B/P (MAP) Pulse Ox O2 Delivery O2 Flow Rate FiO2 08/05/22 11:30 35.9 79 20 97/50 (66) 96 Nasal Cannula 1.00 08/03/22 15:49 21 Capillary Refill : Less Than 3 Seconds I&O Intake and Output 08/05/22 00:00 Intake Total 3440 ml Balance 3440 ml Intake Oral 1440 ml IV Total 2000 ml # Voids 5 General: Alert, Oriented X3, Cooperative, No Acute Distress Lungs: Clear to Auscultation, Normal Air Movement Heart: Regular Rate, Normal S1, Normal S2, No Murmurs Psych/Mental Status: Mental Status NL, Mood NL Results Lab Laboratory Tests 08/05/22 05:05: White Blood Count 6.8, Red Blood Count 3.64L, Hemoglobin 11.6, Hematocrit 35, Mean Corpuscular Volume 97, Mean Corpuscular Hemoglobin 32, Mean Corpuscular H emoglobin Concent 33, Red Cell Distribution Width 15.0H, Platelet Count 145, Mean Platelet Volume 9.9, Immature Granulocyte % (Auto) 0, Neutrophils (%) (Auto) 68, Lymphocytes (%) (Auto) 16, Monocytes (%) (Auto) 14H, Eosinophils (%) (Auto) 1, Basophils (%) (Auto) 0, Neutrophils # (Auto) 4.6, Lymphocytes # (Auto) 1.1, Monocytes # (Auto) 1.0, Eosinophils # (Auto) 0.1, Basophils # (Auto) 0.0, Immature Granulocyte # (Auto) 0.0, Sodium Level 141, Potassium Level 3.9, Chloride Level 110H, Carbon Dioxide Level 24, Anion Gap 7, Blood Urea Nitrogen 12, Creatinine 1.01, Estimat Glomerular Filtration Rate 57, BUN/Creatinine Ratio 12, Glucose Level 97, Calcium Level 8.5, Corrected Calcium 9.5, Total Bilirubin 0.5, Aspartate Amino Transf (AST/SGOT) 36H, Alanine Aminotransferase (ALT/SGPT) 20, Alkaline Phosphatase 107, Total Protein 5.4L, Albumin 2.7L Microbiology 08/03/22 Blood Culture - Preliminary, Resulted No growth 08/03/22 Urine Culture - Final, Complete Mixed Bacterial Roxana See Comments Assessment/Plan Assessment/Plan Assess & Plan/Chief Complaint Assessment: Sepsis presenting as neck and back pain in atypical fashion Bilateral pneumonia Hypothyroidism Fibromyalgia Hypertension PVCs Depression Plan: Discharge home tomorrow HLIV fluids IV antibiotics Monitor closely Ambulate Clinical Quality Measures AMI/AHF: ASA po Prior to arrival: Yes (81 MG) FRANTZ OCHOA DO Aug 05, 2022 11:51
[2022-08-05] MEDS ORDERED: LACTULOSE SYRUP 10GM/15ML (ENULOSE) 30ML UDC PO NR (12:00)
[2022-08-05] MEDS ORDERED: SENNA W/DOCUSATE (SENOKOT S) TABLET PO NR (12:00)
[2022-08-05] MEDS: cefTRIAXone IV/IM 1,000 MG in NS (IVPB) 50 ML IV SCH (12:31)
[2022-08-05 15:40] VITALS: BP 128/63
[2022-08-05] MEDS: ENOXAPARIN 40 MG/0.4 ML (LOVENOX) SYR SC SCH (15:53)
[2022-08-05 19:12] VITALS: BP 126/59
[2022-08-05] MEDS: ACETAMINOPHEN 325 MG TABLET PO PRN (19:36)
[2022-08-06 00:05] VITALS: BP 102/51
[2022-08-06] MEDS: RT-ALBUTEROL/IPRATROPIUM 3 ML (DUONEB) VIAL INH SCH ×2 (02:47→08:07)
[2022-08-06 05:49] LABS: BASOPHILS % (AUTO) 1 % (0-10); EOSINOPHILS # (AUTO) 0.2 10^3/uL (0.0-0.3); EOSINOPHILS % (AUTO) 3 % (0-10); HEMATOCRIT 37 % (35-52); LYMPHOCYTES # (AUTO) 1.2 10^3/uL (1.0-4.0); LYMPHOCYTES % (AUTO) 20 % (12-44); MEAN CORPUSCULAR HEMOGLOBIN 31 pg (25-34); MEAN CORPUSCULAR HGB CONC 32 g/dL (32-36); MEAN CORPUSCULAR VOLUME 97 fL (80-99); MONOCYTES # (AUTO) 0.8 10^3/uL (0.0-1.0); MONOCYTES % (AUTO) 13 % (0-12); NEUTROPHILS # (AUTO) 3.9 10^3/uL (1.8-7.8); NEUTROPHILS % (AUTO) 63 % (42-75); PLATELET COUNT 184 10^3/uL (130-400); WHITE BLOOD COUNT 6.2 10^3/uL (4.3-11.0)
[2022-08-06 06:02] LABS: ALBUMIN 2.8 GM/DL (3.2-4.5); BILIRUBIN,TOTAL 0.7 MG/DL (0.1-1.0); CALCIUM 8.9 MG/DL (8.5-10.1); CREATININE SERUM 1.08 MG/DL (0.60-1.30); TOTAL PROTEIN 5.8 GM/DL (6.4-8.2)
[2022-08-06 07:24] VITALS: BP 146/76
[2022-08-06] MEDS ORDERED: CEFD300C3 PO (08:44)
[2022-08-06] MEDS: DOCUSATE SODIUM 100 MG (COLACE) CAP PO SCH (08:57)
[2022-08-06] MEDS: AZITHROMYCIN 250 MG TAB (ZITHROMAX) PO SCH (08:57)
[2022-08-06] MEDS: SENNOSIDES 8.6 MG (SENOKOT) TAB PO SCH (08:57)
--- NOTE | 2022-08-06 10:18 | Cardiology Progress Note ---
Subjective Date Seen by Provider: Aug 06, 2022 Time Seen by Provider: 08:30 Subjective/Events-last exam Patient is sitting up in bed, no new complaints. Denies any chest pain Focused Exam Lactate Level 08/03/22 13:50: Lactic Acid Level 3.15*H 08/03/22 15:57: Lactic Acid Level 1.86 Time of Focused Exam: 14:38 Objective-Cardiology Exam Last Set of Vital Signs Vital Signs 08/03/22 08/05/22 08/06/22 08/06/22 15:49 11:30 07:24 08:07 Temp 36.0 Pulse 90 Resp 18 B/P (MAP) 146/76 (99) Pulse Ox 96 O2 Delivery Room Air O2 Flow Rate 1.00 FiO2 21 I&O Intake and Output 08/06/22 00:00 Intake Total 1800 ml Output Total 1800 ml Balance 0 ml Intake Oral 1800 ml Output Urine Total 1800 ml # Voids 2 # Bowel Movements 1 General: Alert, Oriented X3, Cooperative, No Acute Distress Lungs: Clear to Auscultation, Normal Air Movement Heart: Regular Rate, Normal S1, Normal S2, No Murmurs Psych/Mental Status: Mental Status NL, Mood NL Results Lab Laboratory Tests 08/06/22 05:18 A/P-Cardiology Admission Diagnosis Back pain Chest pain Pneumonia Palpitation Assessment/Plan Upper back pain, neck pain. Generalized body ache and upper chest pain. Had a stress test done in November 2021 showing no significant ischemia or infarction Pneumonia, receiving antibiotic Managed by primary care team Palpitations, patient was seen with Dr. Das and in the past. Has history of PVCs and ventricular bigeminy. Reporting improvement. Continue to monitor Paroxysmal atrial fibrillation, had a loop recorder implanted in February 2019, has been off oral anticoagulation using aspirin. Continue to have the oral anticoagulation to be used as needed only. Continue to monitor telemetry [id number] score of 3 based on age and female. No further episode of atrial fibrillation was documented. Continue to monitor Easy bruising. I will keep patient off of ASA at this time. Dyspnea on exertion, Stress test was done on December 09, 2021 with extracardiac attenuation and no significant ischemia or infarction on SPECT images stress score 5, SDS 1, ejection fraction 77% 2D echo was done on November 20, 2021 with normal LV size, ejection fraction 55 to 60%, grade 1 diastolic dysfunction, mild to moderate aortic regurgitation, PA pressure 25 to 30 mmHg, aortic root measurement 3.7 cm has not changed compared to the study that was done the year before in 2020 Peripheral edema, patient is maintained on verapamil Using Lasix, overall edema is better Questionable pulmonary hypertension noted on echocardiogram in [facility] subsequently she was referred for pulmonary evaluation and workup was normal PFT then she was referred for right heart catheterization which reported normal pulmonary artery pressure. Last echo was done repeat echocardiogram confirmed normal PA pressure, in 2021 her PA pressure was 20 mmHg Mild bilateral carotid stenosis, last checkup was done in October 2021. Continue to monitor Dilated thoracic aorta measuring 4 cm on echocardiogram. Upon reviewing her record it seems that the patient had a CT scan of the chest done on May 24, 2014 reported thoracic aorta prominent reaching 3.6 cm in diameter, no significant aneurysm, prominent lymph node in the mediastinum. Continue to monitor at this time, no changes are recommended. Continue to monitor. Repeat CT scan was done on November 20, 2021 with minimal increase in ectasia and ascending aorta measuring up to 3.9 cm, no dissection or significant stenosis, peripheral predominant reticulation and granulate throughout the lung which can be seen in atelectasis. Questionable underlying interstitial disease. History of PVCs/bigeminy-maintained on verapamil. Had intolerance to beta blockers in the past secondary to bradycardia. Lipid profile done in September 2021 showing total cholesterol 134, HDL 56, triglyceride 86, LDL 61. Continue to monitor Hypothyroidism, followed and managed by primary care physician. Anxiety History of vitamin D deficiency MARKUS CHICAS Aug 06, 2022 10:18
[2022-08-06 10:39] VITALS: BP 146/76
--- NOTE | 2022-08-06 20:47 | Discharge Summary ---
Diagnosis/Chief Complaint Date of Admission Aug 03, 2022 at 14:41 Date of Discharge Aug 06, 2022 at 10:33 Discharge Date: Aug 06, 2022 Discharge Diagnosis Assessment: Sepsis presenting as neck and back pain in atypical fashion Bilateral pneumonia Hypothyroidism Fibromyalgia Hypertension PVCs Depression Plan: Discharge home tomorrow HLIV fluids IV antibiotics Monitor closely Ambulate Discharge Summary Discharge Physical Examination Allergies: Coded Allergies: Sulfa (Sulfonamide Antibiotics) (Unverified Allergy, Unknown, 11/25/17) ciprofloxacin (Unverified Allergy, Unknown, 11/25/17) Vitals & I&Os Vital Signs Date Time Temp Pulse Resp B/P (MAP) Pulse Ox O2 Delivery O2 Flow Rate FiO2 08/06/22 10:39 36.0 90 18 146/76 96 Room Air 1.00 08/03/22 15:49 21 General Appearance: Alert, Oriented X3, Cooperative Respiratory: Clear to Auscultation Cardiovascular: Regular Rate Psych/Mental Status: Mental Status NL Hospital Course Was the Problem List Reviewed?: Yes [facility] course: Patient had an uneventful hospital course after she was admitted for atypical presentation of sepsis and pneumonia presenting as neck and back pain. She was given IV fluids and IV antibiotics with good results. Labs remained stable. Patient had no evidence of any other dire medical issue although she presented in a very ashen and fisher appearance but cardiac evaluation was stable and no evidence of any other acute illness causing this significant acute illness. She will complete oral antibiotics at discharge and have close follow-up with me. Labs (last 24 hrs) Laboratory Tests 08/03/22 10:50: White Blood Count 15.2H, Red Blood Count 4.57, Hemoglobin 14.3, Hematocrit 43, Mean Corpuscular Volume 94, Mean Corpuscular Hemoglobin 31, Mean Corpuscular Hemoglobin Concent 33, Red Cell Distribution Width 14.6H, Platelet Count 183, Mean Platelet Volume 9.7, Immature Granulocyte % (Auto) 1, Neutrophils (%) (Auto) 81H, Lymphocytes (%) (Auto) 8L, Monocytes (%) (Auto) 10, Eosinophils (%) (Auto) 0, Basophils (%) (Auto) 0, Neutrophils # (Auto) 12.3H, Lymphocytes # (Auto) 1.2, Monocytes # (Auto) 1.6H, Eosinophils # (Auto) 0.0, Basophils # (Auto) 0.0, Immature Granulocyte # (Auto) 0.1, Neutrophils % (Manual) 75, Lymphocytes % (Manual) 13, Monocytes % (Manual) 10, Reactive Lymphocytes 2, Blood Morphology Comment NORMAL, Prothrombin Time 14.5, INR Comment 1.1, Activated Partial Thromboplast Time 29, D-Dimer 1.32H, Sodium Level 138, Potassium Level 4.0, Chloride Level 104, Carbon Dioxide Level 21, Anion Gap 13, Blood Urea Nitrogen 21H, Creatinine 1.30, Estimat Glomerular Filtration Rate 42, BUN/Creatinine Ratio 16, Glucose Level 156H, Calcium Level 9.4, Corrected Calcium 9.7, Magnesium Level 2.0, Total Bilirubin 1.2H, Aspartate Amino Transf (AST/SGOT) 44H, Alanine Aminotransferase (ALT/SGPT) 26, Alkaline Phosphatase 164H, Lactate Dehydrogenase 302H, Total Creatine Kinase 78, Myoglobin 81.2, Troponin I < 0.028, C-Reactive Protein High Sensitivity 1.06H, Total Protein 7.2, Albumin 3.6, Thyroid Stimulating Hormone (TSH) 1.02, Free Thyroxine 0.99 08/03/22 11:00: Influenza Type A (RT-PCR) Not Detected, Influenza Type B (RT-PCR) Not Detected, SARS-CoV-2 RNA (RT-PCR) Not Detected 08/03/22 13:23: Blood Gas Puncture Site RIGHT RADIAL, Blood Gas Patient Temperature 36.5, Arterial Blood pH 7.39, Arterial Blood Partial Pressure CO2 37, Arterial Blood Partial Pressure O2 67L, Arterial Blood HCO3 22L, Arterial Blood Total CO2 23.3, Arterial Blood Oxygen Saturation 94, Arterial Blood Base Excess -2.2, Luc Test POSITIVE, Blood Gas Ventilator Setting NO, Blood Gas Inspired Oxygen N/A 08/03/22 13:50: Urine Color DARK YELLOW, Urine Clarity SL CLOUDY, Urine pH 5.5, Urine Specific [place] 1.010L, Urine Protein NEGATIVE, Urine Glucose (UA) NEGATIVE, Urine Ketones NEGATIVE, Urine Nitrite NEGATIVE, Urine Bilirubin NEGATIVE, Urine Urobilinogen 0.2, Urine Leukocyte Esterase NEGATIVE, Urine RBC (Auto) TRACE-IH, Urine RBC 2-5H, Urine WBC NONE, Urine Squamous Epithelial Cells 5-10, Urine Crystals PRESENTH, Urine Amorphous Sediment FEW DAVIDA URATESH, Urine Bacteria TRACE, Urine Casts NONE, Urine Mucus NEGATIVE, Urine Culture Indicated CULTURE PENDING, Lactic Acid Level 3.15*H 08/03/22 15:57: White Blood Count 15.9H, Red Blood Count 4.11, Hemoglobin 12.9, Hematocrit 39, Mean Corpuscular Volume 95, Mean Corpuscular Hemoglobin 31, Mean Corpuscular Hemoglobin Concent 33, Red Cell Distribution Width 14.7H, Platelet Count 165, Mean Platelet Volume 10.3, Immature Granulocyte % (Auto) 0, Neutrophils (%) (Auto) 76H, Lymphocytes (%) (Auto) 11L, Monocytes (%) (Auto) 13H, Eosinophils (%) (Auto) 0, Basophils (%) (Auto) 0, Neutrophils # (Auto) 12.0H, Lymphocytes # (Auto) 1.7, Monocytes # (Auto) 2.1H, Eosinophils # (Auto) 0.0, Basophils # (Auto) 0.0, Immature Granulocyte # (Auto) 0.1, Sodium Level 136, Potassium Level 4.4, Chloride Level 105, Carbon Dioxide Level 24, Anion Gap 7, Blood Urea Nitrogen 18, Creatinine 1.15, Estimat Glomerular Filtration Rate 49, BUN/Creatinine Ratio 16, Glucose Level 141H, Lactic Acid Level 1.86, Calcium Level 8.7 08/04/22 04:14: White Blood Count 8.2, Red Blood Count 3.55L, Hemoglobin 11.1L, Hematocrit 34L, Mean Corpuscular Volume 96, Mean Corpuscular Hemoglobin 31, Mean Corpuscular Hemoglobin Concent 33, Red Cell Distribution Width 14.7H, Platelet Count 145, Mean Platelet Volume 10.1, Immature Granulocyte % (Auto) 0, Neutrophils (%) (Auto) 64, Lymphocytes (%) (Auto) 19, Monocytes (%) (Auto) 17H, Eosinophils (%) (Auto) 0, Basophils (%) (Auto) 0, Neutrophils # (Auto) 5.3, Lymphocytes # (Auto) 1.5, Monocytes # (Auto) 1.4H, Eosinophils # (Auto) 0.0, Basophils # (Auto) 0.0, Immature Granulocyte # (Auto) 0.0, Sodium Level 140, Potassium Level 3.9, Chloride Level 111H, Carbon Dioxide Level 22, Anion Gap 7, Blood Urea Nitrogen 17, Creatinine 1.17, Estimat Glomerular Filtration Rate 48, BUN/Creatinine Ratio 15, Glucose Level 109H, Calcium Level 8.3L, Corrected Calcium 9.3, Total Bilirubin 1.0, Aspartate Amino Transf (AST/SGOT) 31, Alanine Aminotransferase (ALT/SGPT) 17, Alkaline Phosphatase 115, Total Protein 5.3L, Albumin 2.7L, Triglycerides Level 50, Cholesterol Level 105, LDL Cholesterol Direct 42, VLDL Cholesterol 10, HDL Cholesterol 46 08/05/22 05:05: White Blood Count 6.8, Red Blood Count 3.64L, Hemoglobin 11.6, Hematocrit 35, Mean Corpuscular Volume 97, Mean Corpuscular Hemoglobin 32, Mean Corpuscular Hemoglobin Concent 33, Red Cell Distribution Width 15.0H, Platelet Count 145, Mean Platelet Volume 9.9, Immature Granulocyte % (Auto) 0, Neutrophils (%) (Auto) 68, Lymphocytes (%) (Auto) 16, Monocytes (%) (Auto) 14H, Eosinophils (%) (Auto) 1, Basophils (%) (Auto) 0, Neutrophils # (Auto) 4.6, Lymphocytes # (Auto) 1.1, Monocytes # (Auto) 1.0, Eosinophils # (Auto) 0.1, Basophils # (Auto) 0.0, Immature Granulocyte # (Auto) 0.0, Sodium Level 141, Potassium Level 3.9, Chloride Level 110H, Carbon Dioxide Level 24, Anion Gap 7, Blood Urea Nitrogen 12, Creatinine 1.01, Estimat Glomerular Filtration Rate 57, BUN/Creatinine Ratio 12, Glucose Level 97, Calcium Level 8.5, Corrected Calcium 9.5, Total Bilirubin 0.5, Aspartate Amino Transf (AST/SGOT) 36H, Alanine Aminotransferase (ALT/SGPT) 20, Alkaline Phosphatase 107, Total Protein 5.4L, Albumin 2.7L 08/06/22 05:18: White Blood Count 6.2, Red Blood Count 3.84, Hemoglobin 12.0, Hematocrit 37, Mean Corpuscular Volume 97, Mean Corpuscular Hemoglobin 31, Mean Corpuscular Hemoglobin Concent 32, Red Cell Distribution Width 15.0H, Platelet Count 184, Mean Platelet Volume 10.0, Immature Granulocyte % (Auto) 1, Neutrophils (%) (Auto) 63, Lymphocytes (%) (Auto) 20, Monocytes (%) (Auto) 13H, Eosinophils (%) (Auto) 3, Basophils (%) (Auto) 1, Neutrophils # (Auto) 3.9, Lymphocytes # (Auto) 1.2, Monocytes # (Auto) 0.8, Eosinophils # (Auto) 0.2, Basophils # (Auto) 0.0, Immature Granulocyte # (Auto) 0.0, Sodium Level 140, Potassium Level 4.0, Chloride Level 109H, Carbon Dioxide Level 24, Anion Gap 7, Blood Urea Nitrogen 10, Creatinine 1.08, Estimat Glomerular Filtration Rate 53, BUN/Creatinine Ratio 9, Glucose Level 88, Calcium Level 8.9, Corrected Calcium 9.9, Total Bilirubin 0.7, Aspartate Amino Transf (AST/SGOT) 57H, Alanine Aminotransferase (ALT/SGPT) 38, Alkaline Phosphatase 110, Total Protein 5.8L, Albumin 2.8L Microbiology 08/03/22 Blood Culture - Preliminary, Resulted No growth 08/03/22 Urine Culture - Final, Complete Mixed Bacterial Roxana See Comments Pending Labs Microbiology Date/Time Source Procedure Growth Status 08/03/22 14:19 Peripheral Rt Ac Blood Culture - Preliminary No growth Resulted 08/03/22 13:50 Peripheral Lt Ac Blood Culture - Preliminary No growth Resulted 08/03/22 13:45 Urine Clean Catch Urine Culture - Final Mixed Bacterial Roxana See Comments Complete Laboratory Tests 08/03/22 10:50: White Blood Count 15.2, Red Blood Count 4.57, Hemoglobin 14.3, Hematocrit 43, Mean Corpuscular Volume 94, Mean Corpuscular Hemoglobin 31, Mean Corpuscular Hemoglobin Concent 33, Red Cell Distribution Width 14.6, Platelet Count 183, Mean Platelet Volume 9.7, Immature Granulocyte % (Auto) 1, Neutrophils (%) (Auto) 81, Lymphocytes (%) (Auto) 8, Monocytes (%) (Auto) 10, Eosinophils (%) (Auto) 0, Basophils (%) (Auto) 0, Neutrophils # (Auto) 12.3, Lymphocytes # (Auto) 1.2, Monocytes # (Auto) 1.6, Eosinophils # (Auto) 0.0, Basophils # (Auto) 0.0, Immature Granulocyte # (Auto) 0.1, Neutrophils % (Manual) 75, Lymphocytes % (Manual) 13, Monocytes % (Manual) 10, Reactive Lymphocytes 2, Blood Morphology Comment NORMAL, Prothrombin Time 14.5, INR Comment 1.1, Activated Partial Thromboplast Time 29, D-Dimer 1.32, Sodium Level 138, Potassium Level 4.0, C hloride Level 104, Carbon Dioxide Level 21, Anion Gap 13, Blood Urea Nitrogen 21, Creatinine 1.30, Estimat Glomerular Filtration Rate 42, BUN/Creatinine Ratio 16, Glucose Level 156, Calcium Level 9.4, Corrected Calcium 9.7, Magnesium Level 2.0, Total Bilirubin 1.2, Aspartate Amino Transf (AST/SGOT) 44, Alanine Aminotransferase (ALT/SGPT) 26, Alkaline Phosphatase 164, Lactate Dehydrogenase 302, Total Creatine Kinase 78, Myoglobin 81.2, Troponin I < 0.028, C-Reactive Protein High Sensitivity 1.06, Total Protein 7.2, Albumin 3.6, Thyroid Stimulating Hormone (TSH) 1.02, Free Thyroxine 0.99 08/03/22 11:00: Influenza Type A (RT-PCR) Not Detected, Influenza Type B (RT-PCR) Not Detected, SARS-CoV-2 RNA (RT-PCR) Not Detected 08/03/22 13:23: Blood Gas Puncture Site RIGHT RADIAL, Blood Gas Patient Temperature 36.5, Arterial Blood pH 7.39, Arterial Blood Partial Pressure CO2 37, Arterial Blood Partial Pressure O2 67, Arterial Blood HCO3 22, Arterial Blood Total CO2 23.3, Arterial Blood Oxygen Saturation 94, Arterial Blood Base Excess -2.2, Luc Test POSITIVE, Blood Gas Ventilator Setting NO, Blood Gas Inspired Oxygen N/A 08/03/22 13:50: Urine Color DARK YELLOW, Urine Clarity SL CLOUDY, Urine pH 5.5, Urine Specific [place] 1.010, Urine Protein NEGATIVE, Urine Glucose (UA) NEGATIVE, Urine Ketones NEGATIVE, Urine Nitrite NEGATIVE, Urine Bilirubin NEGATIVE, Urine Urobilinogen 0.2, Urine Leukocyte Esterase NEGATIVE, Urine RBC (Auto) TRACE-I, Urine RBC 2-5, Urine WBC NONE, Urine Squamous Epithelial Cells 5-10, Urine Crystals PRESENT, Urine Amorphous Sediment FEW DAVIDA URATES, Urine Bacteria T RACE, Urine Casts NONE, Urine Mucus NEGATIVE, Urine Culture Indicated CULTURE PENDING, Lactic Acid Level 3.15 08/03/22 15:57: White Blood Count 15.9, Red Blood Count 4.11, Hemoglobin 12.9, Hematocrit 39, Mean Corpuscular Volume 95, Mean Corpuscular Hemoglobin 31, Mean Corpuscular Hemoglobin Concent 33, Red Cell Distribution Width 14.7, Platelet Count 165, Mean Platelet Volume 10.3, Immature Granulocyte % (Auto) 0, Neutrophils (%) (Auto) 76, Lymphocytes (%) (Auto) 11, Monocytes (%) (Auto) 13, Eosinophils (%) (Auto) 0, Basophils (%) (Auto) 0, Neutrophils # (Auto) 12.0, Lymphocytes # (Auto) 1.7, Monocytes # (Auto) 2.1, Eosinophils # (Auto) 0.0, Basophils # (Auto) 0.0, Immature Granulocyte # (Auto) 0.1, Sodium Level 136, Potassium Level 4.4, Chloride Level 105, Carbon Dioxide Level 24, Anion Gap 7, Blood Urea Nitrogen 18, Creatinine 1.15, Estimat Glomerular Filtration Rate 49, BUN/Creatinine Ratio 16, Glucose Level 141, Lactic Acid Level 1.86, Calcium Level 8.7 08/04/22 04:14: White Blood Count 8.2, Red Blood Count 3.55, Hemoglobin 11.1, Hematocrit 34, Mean Corpuscular Volume 96, Mean Corpuscular Hemoglobin 31, Mean Corpuscular Hemoglobin Concent 33, Red Cell Distribution Width 14.7, Platelet Count 145, Mean Platelet Volume 10.1, Immature Granulocyte % (Auto) 0, Neutrophils (%) (Auto) 64, Lymphocytes (%) (Auto) 19, Monocytes (%) (Auto) 17, Eosinophils (%) (Auto) 0, Basophils (%) (Auto) 0, Neutrophils # (Auto) 5.3, Lymphocytes # (Auto) 1.5, Monocytes # (Auto) 1.4, Eosinophils # (Auto) 0.0, Basophils # (Auto) 0.0, Immature Granulocyte # (Auto) 0.0, Sodium Level 140, Potassium Level 3.9, Chloride Level 111, Carbon Dioxide Level 22, Anion Gap 7, Blood Urea Nitrogen 17, Creatinine 1.17, Estimat Glomerular Filtration Rate 48, BUN/Creatinine Ratio 15, Glucose Level 109, Calcium Level 8.3, Corrected Calcium 9.3, Total Bilirubin 1.0, Aspartate Amino Transf (AST/SGOT) 31, Alanine Aminotransferase (ALT/SGPT) 17, Alkaline Phosphatase 115, Total Protein 5.3, Albumin 2.7, Triglycerides Lev el 50, Cholesterol Level 105, LDL Cholesterol Direct 42, VLDL Cholesterol 10, HDL Cholesterol 46 08/05/22 05:05: White Blood Count 6.8, Red Blood Count 3.64, Hemoglobin 11.6, Hematocrit 35, Mean Corpuscular Volume 97, Mean Corpuscular Hemoglobin 32, Mean Corpuscular Hemoglobin Concent 33, Red Cell Distribution Width 15.0, Platelet Count 145, Mean Platelet Volume 9.9, Immature Granulocyte % (Auto) 0, Neutrophils (%) (Auto) 68, Lymphocytes (%) (Auto) 16, Monocytes (%) (Auto) 14, Eosinophils (%) (Auto) 1, Basophils (%) (Auto) 0, Neutrophils # (Auto) 4.6, Lymphocytes # (Auto) 1.1, Monocytes # (Auto) 1.0, Eosinophils # (Auto) 0.1, Basophils # (Auto) 0.0, Immature Granulocyte # (Auto) 0.0, Sodium Level 141, Potassium Level 3.9, Chloride Level 110, Carbon Dioxide Level 24, Anion Gap 7, Blood Urea Nitrogen 12, Creatinine 1.01, Estimat Glomerular Filtration Rate 57, BUN/Creatinine Ratio 12, Glucose Level 97, Calcium Level 8.5, Corrected Calcium 9.5, Total Bilirubin 0.5, Aspartate Amino Transf (AST/SGOT) 36, Alanine Aminotransferase (ALT/SGPT) 20, Alkaline Phosphatase 107, Total Protein 5.4, Albumin 2.7 08/06/22 05:18: White Blood Count 6.2, Red Blood Count 3.84, Hemoglobin 12.0, Hematocrit 37, Mean Corpuscular Volume 97, Mean Corpuscular Hemoglobin 31, Mean Corpuscular Hemoglobin Concent 32, Red Cell Distribution Width 15.0, Platelet Count 184, Mean Platelet Volume 10.0, Immature Granulocyte % (Auto) 1, Neutrophils (%) (Auto) 63, Lymphocytes (%) (Auto) 20, Monocytes (%) (Auto) 13, Eosinophils (%) (Auto) 3, Basophils (%) (Auto) 1, Neutrophils # (Auto) 3.9, Lymphocytes # (Auto) 1.2, Monocytes # (Auto) 0.8, Eosinophils # (Auto) 0.2, Basophils # (Auto) 0.0, Immature Granulocyte # (Auto) 0.0, Sodium Level 140, Potassium Level 4.0, Chl oride Level 109, Carbon Dioxide Level 24, Anion Gap 7, Blood Urea Nitrogen 10, Creatinine 1.08, Estimat Glomerular Filtration Rate 53, BUN/Creatinine Ratio 9, Glucose Level 88, Calcium Level 8.9, Corrected Calcium 9.9, Total Bilirubin 0.7, Aspartate Amino Transf (AST/SGOT) 57, Alanine Aminotransferase (ALT/SGPT) 38, Alkaline Phosphatase 110, Total Protein 5.8, Albumin 2.8 Discharge Home Medications: Active Scripts Active Cefdinir 300 Mg Capsule 300 Mg PO BID Reported [Palmitoylethanolamid] 300 Mg PO BID Probiotic (L.acidoph & Paracasei,B.lactis) 10 Billion Cell Capsule 1 Each PO 1200 Fish Oil 1,200 mg Softgel ([place]-3/Dha/Epa/Fish Oil) 1,200 Mg (144 Mg-216 Mg) Capsule 1,200 Mg PO 1200 Aspirin EC (Aspirin) 81 Mg Tablet.dr 81 Mg PO DAILY Vitamin D3 (Cholecalciferol (Vitamin D3)) 25 Mcg (1000 Unit) Tablet 25 Mcg PO 1200 Calcium 600 + Vit D Softgel (Calcium Carbonate/Vitamin D3) 600MG-12.5 Capsule 2 Each PO 1200 Atorvastatin Calcium 10 Mg Tablet 10 Mg PO HS LAST FILLED 03-09-2022 #90/90 DAY SUPPLY Furosemide 20 Mg Tablet 20 Mg PO DAILY Potassium Chloride 10 Meq Tab.er.prt 10 Meq PO DAILY Levothyroxine Sodium 75 Mcg Tablet 75 Mcg PO DAILY Minocycline HCl 100 Mg Capsule 100 Mg PO BID Verapamil Sr (Verapamil HCl) 240 Mg Cap24h.pel 240 Mg PO DAILY Duloxetine HCl 30 Mg Capsule.dr 30 Mg PO DAILY Premarin (Estrogens Conjugated) 0.625 Mg/Gram Cr 1 Applic VG MO,WE,SA @HS Instructions to patient/family Please see electronic discharge instructions given to patient. Clinical Quality Measures AMI/AHF: ASA po Prior to arrival: Yes (81 MG) FRANTZ OCHOA DO Aug 06, 2022 20:47
== END 2022-08-06 10:33 | disposition home or self-care (01) ==
LOC: EDUNIT# 10:36 → ER 10:38 → UNDOADMOB 14:41 → CSD 14:41 → 4TH 08-04 11:20 → CSD 08-04 11:20 → UNDODISOB 08-06 10:33
PROVIDERS: ADMIT Internal Medicine; ATTEND Internal Medicine
DX: A41.9 Sepsis, unspecified organism (principal); M54.2 Cervicalgia; M54.6 Pain in thoracic spine; J18.9 Pneumonia, unspecified organism; E03.9 Hypothyroidism, unspecified; M79.7 Fibromyalgia; I10 Essential (primary) hypertension; I49.3 Ventricular premature depolarization; I48.0 Paroxysmal atrial fibrillation; R06.00 Dyspnea, unspecified; R60.0 Localized edema; I65.23 Occlusion and stenosis of bilateral carotid arteries; I77.810 Thoracic aortic ectasia; F32.A Depression, unspecified; Z79.82 Long term (current) use of aspirin; Z79.01 Long term (current) use of anticoagulants; Z86.39 Personal history of other endocrine, nutritional and metabolic disease; Z79.890 Hormone replacement therapy
CPT/HCPCS: 36600; 71045 ×2; 71275; 80048; 80053 ×4; 80061; 81000; 82550; 82805; 83605; 83615; 83735; 83874; 84439; 84443; 84484; 85007; 85025 ×4; 85027; 85379; 85610; 85730; 86141; 87040; 87088; 87636; 93005; 93041; 94640 ×4; 94664; 94760 ×2; 94761; 96361 ×3; 96365; 96366; 96372 ×3; 96375; 96376 ×2; 97162; 97166; 99285; G0378 ×2; 36415

== ENCOUNTER → 2022-08-21 | Outpatient (CLI) | payer MEDICARE ==
[~2022-08-21] MED LIST changes: +AMOX1TAB12 PO; +APIX5TAB PO; +ASPI-1238 PO; +CALC1CAP20 PO; +CEFD300C3 PO; +CHOL10004 PO; +DULO30CA49 PO; +FURO20TA4 PO; +L.AC1CAP6 PO; +MINO100C5 PO; +OMEG12002 PO; +PALMITOYLETHANOLAMID PO; +POTA-177 PO; +TRM50T PO; +VERA240C4 PO
--- NOTE | 2022-08-21 09:17 | Diagnostic Imaging Report ---
EXAMINATION: Chest 2 view HISTORY: Pneumonia COMPARISON: 08/04/2022 FINDINGS: There is a moderate left pleural effusion. There is overlying atelectasis or pneumonia. No pneumothorax. Heart size is normal. IMPRESSION: 1. Moderate left pleural effusion with overlying atelectasis or pneumonia. Dictated by: Dictated on workstation # [id number]
== END ==
LOC: RAD 08:24
PROVIDERS: ATTEND Internal Medicine
DX: J90 Pleural effusion, not elsewhere classified (principal)
CPT/HCPCS: 71046

== ENCOUNTER 2022-08-22 14:13 | Observation (INO) | payer MEDICARE ==
[2022-08-22] VITALS (13 sets, daily range): BP systolic 112–138; BP diastolic 58–79
[~2022-08-22] VITALS: Ht 172.7 cm; Wt 92.0 kg
[~2022-08-22 14:13] MED LIST changes: -AMOX1TAB12 PO; -APIX5TAB PO; -TRM50T PO
[2022-08-22] MEDS ORDERED: ANTACID SUSP 30 ML UDC (MYLANTA) PO PRN (14:30)
[2022-08-22] MEDS ORDERED: diphenhydrAMINE 25 MG TAB (BENADRYL) PO PRN (14:30)
[2022-08-22] MEDS ORDERED: BISACODYL 10 MG SUPP (DULCOLAX) PR PRN (14:30)
[2022-08-22] MEDS ORDERED: VANCOMYCIN INJECTION 0.1 MG in NS (IVPB) 250 ML IV SCH (14:30)
[2022-08-22] MEDS ORDERED: HYDROmorphone 2 MG/ML VIAL (DILAUDID) IV PRN (14:30)
[2022-08-22] MEDS ORDERED: MILK OF MAGNESIA 400 MG/5 ML 30 ML UDC PO PRN (14:30)
[2022-08-22] MEDS ORDERED: ONDANSETRON 4 MG (ZOFRAN) ORAL DISSOLVE TAB PO PRN (14:30)
[2022-08-22] MEDS ORDERED: CALCIUM CARBONATE 500 MG (TUMS) TAB.CHEW PO PRN (14:30)
[2022-08-22] MEDS ORDERED: LACTULOSE SYRUP 10GM/15ML (ENULOSE) 30ML UDC PO PRN (14:30)
[2022-08-22] MEDS ORDERED: ACETAMINOPHEN 325 MG TABLET PO PRN (14:30)
[2022-08-22] MEDS ORDERED: polyethylene glycoL POWDER 17 GM (MIRALAX) PACK PO PRN (14:30)
[2022-08-22] MEDS ORDERED: ONDANSETRON 4 MG/2 ML (SDV) Z0FRAN IV PRN (14:30)
[2022-08-22] MEDS ORDERED: MELATONIN 3 MG TABLET PO PRN (14:30)
[2022-08-22] MEDS ORDERED: VANCOMYCIN 1500MG/300ML PREMIX IV NR (15:00)
[2022-08-22] MEDS ORDERED: diphenhydrAMINE 50 MG/ML INJ (BENADRYL) IVP PRN (15:00)
[2022-08-22] MEDS ORDERED: CEFEPIME INJECTION 1,000 MG in NS (IVPB) 50 ML IV SCH (15:00)
--- NOTE | 2022-08-22 15:39 | Diagnostic Imaging Report ---
INDICATION: Pneumonia. Frontal chest obtained at 3:04 p.m. and compared to 08/21/2022. FINDINGS: There is cardiomegaly. There is a moderate-sized left pleural effusion with left basilar atelectasis. There is no pneumothorax. IMPRESSION: Moderate-sized left pleural effusion with left basilar atelectatic change versus infiltrate. There is no pneumothorax or other new finding. Dictated by: Dictated on workstation # [id number]
[2022-08-22 15:54] LABS: ABG BASE EXCESS -0.8 MMOL/L (-2.5-2.5); ABG OXYGEN SATURATION 96 % (94-100); ABG PCO2 33 MMHG (35-45); ABG PH 7.45 (7.37-7.43); ABG PO2 67 MMHG (79-93); ABG TCO2 23.8 MMOL/L (21.0-31.0); ALLENS TEST YES-POS; PATIENT TEMP 36.2; VENTILATOR NO
[2022-08-22 16:01] LABS: BASOPHILS % (AUTO) 0 % (0-10); EOSINOPHILS # (AUTO) 0.1 10^3/uL (0.0-0.3); EOSINOPHILS % (AUTO) 1 % (0-10); HEMATOCRIT 38 % (35-52); HEMOGLOBIN 12.1 g/dL (11.5-16.0); LYMPHOCYTES # (AUTO) 2.1 X 10^3 (1.0-4.0); LYMPHOCYTES % (AUTO) 25 % (12-44); MEAN CORPUSCULAR HEMOGLOBIN 31 pg (25-34); MEAN CORPUSCULAR HGB CONC 32 g/dL (32-36); MEAN CORPUSCULAR VOLUME 97 fL (80-99); MEAN PLATELET VOLUME 8.7 fL (9.0-12.2); MONOCYTES # (AUTO) 1.1 X 10^3 (0.0-1.0); MONOCYTES % (AUTO) 14 % (0-12); NEUTROPHILS # (AUTO) 4.8 X 10^3 (1.8-7.8); NEUTROPHILS % (AUTO) 59 % (42-75); PLATELET COUNT 406 10^3/uL (130-400); WHITE BLOOD COUNT 8.2 10^3/uL (4.3-11.0)
[2022-08-22] MEDS ORDERED: APIX5TAB PO (16:05)
[2022-08-22 16:09] LABS: ALBUMIN 2.7 GM/DL (3.2-4.5); CHLORIDE 109 MMOL/L (98-107); POTASSIUM 4.4 MMOL/L (3.6-5.0); SODIUM 141 MMOL/L (135-145)
[2022-08-22 16:10] LABS: CALCIUM 8.5 MG/DL (8.5-10.1)
[2022-08-22 16:12] LABS: GLUCOSE 99 MG/DL (70-105)
[2022-08-22 16:13] LABS: BILIRUBIN,TOTAL 0.4 MG/DL (0.1-1.0); CARBON DIOXIDE 21 MMOL/L (21-32)
[2022-08-22 16:15] LABS: ALKALINE PHOSPHATASE 219 U/L (40-136); CREATININE SERUM 1.22 MG/DL (0.60-1.30); GFR ESTIMATED 45
[2022-08-22 16:16] LABS: BUN/CREATININE RATIO 22
[2022-08-22 16:18] LABS: ALANINE AMINOTRANSFERASE 47 U/L (0-55)
[2022-08-22 16:21] LABS: ERYTHROCYTE SEDIMENTATION RATE 36 MM/HR (0-30)
--- NOTE | 2022-08-22 16:54 | Diagnostic Imaging Report ---
INDICATION: Pleural effusion. FINDINGS: Sonographic surveillance of the chest performed with [id number] bilateral pleural effusions present. IMPRESSION: [id number] bilateral pleural effusions noted, marked for planned thoracentesis. Dictated by: Dictated on workstation # [id number]
[2022-08-22] MEDS ORDERED: RT-ALBUTEROL SULF 2.5 MG/3 ML PRE-MIX VIAL INH PRN (17:00)
--- NOTE | 2022-08-22 17:15 | Diagnostic Imaging Report ---
PROCEDURE: US Abdomen, limited. TECHNIQUE: Multiple realtime grayscale images were obtained over the abdomen in various projections. INDICATION: Elevated liver function studies. FINDINGS: Liver parenchyma is unremarkable. The gallbladder is normal. No bile duct dilatation. The portal vein is patent and showed normal directional flow. The Vasquez's sign is negative. There is no ascites or acute fluid collection. The visible portions of the pancreas are unremarkable, portions of its lower head and tail are obscured by gas. The visible aorta and IVC are nonaneurysmal. The right kidney is 9 cm, unobstructed, and nonacute. IMPRESSION: No pathological finding revealed at right upper quadrant ultrasound. Dictated by: Dictated on workstation # [id number]
[2022-08-22 17:28] LABS: BILIRUBIN,URINE NEGATIVE (NEGATIVE); CLARITY,URINE CLEAR; COLOR,URINE YELLOW; GLUCOSE, URINE (UA) NEGATIVE (NEGATIVE); KETONES,URINE NEGATIVE (NEGATIVE); LEUKOCYTE ESTERASE ,URINE NEGATIVE (NEGATIVE); NITRITE,URINE NEGATIVE (NEGATIVE); PH,URINE 5.5 (5-9); PROTEIN,URINE NEGATIVE (NEGATIVE)
[2022-08-22] MEDS ORDERED: CATHETER FLUSH 10 ML SYR IV PRN (17:30)
[2022-08-22] MEDS ORDERED: IOHEXOL 350 MG/ML 100 ML (OMNIPAQUE 350) VIAL IV ONE (17:30)
[2022-08-22] MEDS ORDERED: HOLD METFORMIN - RECEIVED CONTRAST 20 ML VIAL IV SCH (17:30)
[2022-08-22] MEDS ORDERED: NS 100 ML (IVPB) BAG IV ONE (17:30)
[2022-08-22 17:40] LABS: BACTERIA,URINE NEGATIVE /HPF; SQUAMOUS EPITHELIAL CELL,UR 0-2 /HPF
--- NOTE | 2022-08-22 18:46 | Diagnostic Imaging Report ---
PROCEDURE: CT chest, abdomen and pelvis with contrast. TECHNIQUE: Multiple contiguous axial images were obtained through the chest, abdomen, and pelvis after the administration of intravenous contrast. Auto Exposure Controls were utilized during the CT exam to meet ALARA standards for radiation dose reduction. INDICATION: Shortness of breath. CT CHEST: There are are bilateral pleural effusions layering out to a depth of 3.5 cm on the right and 6 cm on the left. There is a small pericardial effusion. There is some edema in the dependent portions of the lungs. Ascending aorta measures 3.9 cm. There is coronary calcific arteriosclerosis. There are a few small mediastinal lymph nodes but none that appear to be pathologically enlarged. IMPRESSION: Large bilateral pleural effusions. Pericardial effusion. Coronary atherosclerosis. Ascending aortic aneurysm. CT ABDOMEN/PELVIS: Liver appears normal. Gallbladder is normal. Pancreas is normal. Spleen is unremarkable. Adrenals are normal. Kidneys appear normal. There is calcific atherosclerosis of the aorta. Small bowel is not dilated. There is diverticulosis of the colon but no evidence of diverticulitis. Uterus and adnexa are unremarkable. There is no intraperitoneal free air or free fluid. Urinary bladder is normal. IMPRESSION: Uncomplicated diverticulosis of the colon. Aortic atherosclerosis. Dictated by: Dictated on workstation # [id number]
--- NOTE | 2022-08-22 19:21 | Consultation - Surgery ---
History of Present Illness History of Present Illness Patient Consulted On(jazzy/time) 08/22/22 19:16 Date Seen by Provider: Aug 22, 2022 Time Seen by Provider: 17:34 History of Present Illness Consult requested by Dr. Ochoa for pleural effusion Patient is a 77-year-old female who is having increasing shortness of breath. Feeling ill. Having increased swelling to her lower extremities and little bit of more bruising. Nothing making better. Activity makes worse. Found to have effusions on x ray. CT CHEST: There are are bilateral pleural effusions layering out to a depth of 3.5 cm on the right and 6 cm on the left. There is a small pericardial effusion. There is some edema in the dependent portions of the lungs. Ascending aorta measures 3.9 cm. There is coronary calcific arteriosclerosis. There are a few small mediastinal lymph nodes but none that appear to be pathologically enlarged. IMPRESSION: Large bilateral pleural effusions. Pericardial effusion. Coronary atherosclerosis. Ascending aortic aneurysm. CT ABDOMEN/PELVIS: Liver appears normal. Gallbladder is normal. Pancreas is normal. Spleen is unremarkable. Adrenals are normal. Kidneys appear normal. There is calcific atherosclerosis of the aorta. Small bowel is not dilated. There is diverticulosis of the colon but no evidence of diverticulitis. Uterus and adnexa are unremarkable. There is no intraperitoneal free air or free fluid. Urinary bladder is normal. IMPRESSION: Uncomplicated diverticulosis of the colon. Aortic atherosclerosis. Allergies and Home Medications Allergies Coded Allergies: Sulfa (Sulfonamide Antibiotics) (Unverified Allergy, Unknown, 11/25/17) ciprofloxacin (Unverified Allergy, Unknown, 11/25/17) Patient Home Medication List Home Medication List Reviewed: Yes (CT CHEST: There are are bilateral pleural effusions layering out) Apixaban (Eliquis) 5 Mg Tablet, 1 EA PO BID, (Reported) Entered as Reported by: PEGGY WALLACE on 08/22/22 1605 Last Action: New Order Aspirin (Aspirin EC) 81 Mg Tablet., 81 MG PO DAILY, (Reported) Entered as Reported by: LEVY SÁNCHEZ on 08/04/2226 Last Action: Reviewed Atorvastatin Calcium (Atorvastatin Calcium) 10 Mg Tablet, 10 MG PO HS, (Reported) Entered as Reported by: LEVY SÁNCHEZ on 08/04/2248 Last Action: Reviewed Calcium Carbonate/Vitamin D3 (Calcium 600 + Vit D Softgel) 600MG-12.5 Capsule, 2 EACH PO 1200, (Reported) Entered as Reported by: LEVY SÁNCHEZ on 08/04/22952 Last Action: Reviewed Cholecalciferol (Vitamin D3) (Vitamin D3) 25 Mcg (1000 Unit) Tablet, 25 MCG PO 1200, (Reported) Entered as Reported by: LEVY SÁNCHEZ on 08/04/22952 Last Action: Reviewed Duloxetine HCl (Duloxetine HCl) 30 Mg Capsule.dr, 30 MG PO DAILY, (Reported) Entered as Reported by: LEVY SÁNCHEZ on 08/04/22952 Last Action: Reviewed Estrogens Conjugated (Premarin) 0.625 Mg/Gram Cr, 1 APPLIC VG MO,WE,SA @HS, (Reported) Entered as Reported by: NIKOLAI HERNANDEZ on 11/25/17 9394 Last Action: Reviewed Furosemide (Furosemide) 20 Mg Tablet, 20 MG PO DAILY, (Reported) Entered as Reported by: LEVY SÁNCHEZ on 08/04/22952 Last Action: Reviewed L.acidoph & Paracasei,B.lactis (Probiotic) 10 Billion Cell Capsule, 1 EACH PO 1200, (Reported) Entered as Reported by: LEVY SÁNCHEZ on 08/04/22952 Last Action: Reviewed Levothyroxine Sodium (Levothyroxine Sodium) 75 Mcg Tablet, 75 MCG PO DAILY, (Reported) Entered as Reported by: LEVY SÁNCHEZ on 08/04/22952 Last Action: Reviewed Minocycline HCl (Minocycline HCl) 100 Mg Capsule, 100 MG PO BID, (Reported) Entered as Reported by: LEVY SÁNCHEZ on 08/04/22952 Last Action: Reviewed [place]-3/Dha/Epa/Fish Oil (Fish Oil 1,200 mg Softgel) 1,200 Mg (144 Mg-216 Mg) Capsule, 1,200 MG PO 1200, (Reported) Entered as Reported by: LEVY SÁNCHEZ on 08/04/22952 Last Action: Reviewed Potassium Chloride (Potassium Chloride) 10 Meq Tab.er.prt, 10 MEQ PO DAILY, (Reported) Entered as Reported by: LEVY SÁNCHEZ on 08/04/22952 Last Action: Reviewed Verapamil HCl (Verapamil Sr) 240 Mg Cap24h.pel, 240 MG PO DAILY, (Reported) Entered as Reported by: LEVY SÁNCHEZ on 08/04/22 0953 Last Action: Reviewed [Palmitoylethanolamid] , 300 MG PO BID, (Reported) Entered as Reported by: LEVY SÁNCHEZ on 08/04/22 1006 Last Action: Reviewed Discontinued Medications Cefdinir (Cefdinir) 300 Mg Capsule, 300 MG PO BID Discontinued Reason: No Longer Taking Prescribed by: FRANTZ OCHOA on 08/06/22 0844 Last Action: Discontinued Past Sxunqxg-Keisgm-Bscygu Hx Patient Social History Smoking Status: Never a Smoker Recent Hopitalizations: No Alcohol Use?: Yes Immunizations Up To Date Tetanus Booster (TDap): Unknown Date of Pneumonia Vaccine: Nov 02, 2017 Date of Influenza Vaccine: Dec 02, 2018 Seasonal Allergies Seasonal Allergies: Yes Surgeries History of Surgeries: Yes Surgeries: Tubal Ligation Respiratory History of Respiratory Disorde: No Cardiovascular History of Cardiac Disorders: Yes (pvc) Cardiac Disorders: High Cholesterol, Hypertension Neurological History of Neurological Disord: No Reproductive System Hx Reproductive Disorders: No Sexually Transmitted Disease: No HIV/AIDS: No 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 Gastrointestinal History of Gastrointestinal Di: Yes Gastrointestinal Disorders: Chronic Constipation Musculoskeletal History of Musculoskeletal Dis: Yes Musculoskeletal Disorders: Arthritis, Fibromyalgia Endocrine History of Endocrine Disorders: Yes Endocrine Disorders: Hypothyroidsim HEENT Loss of Vision: Bilateral Hearing Impairment: Denies Cancer History of Cancer: No Psychosocial History of Psychiatric Problem: No Blood Transfusions History of Blood Disorders: No Adverse Reaction to a Blood Tr: No (N/A) Reviewed Nursing Assessment Reviewed/Agree w Nursing PMH: Yes Family Medical History Significant Family History: No Pertinent Family Hx, Diabetes Review of Systems-General Constitutional: No chills, No diaphoresis EENTM: No blurred vision, No double vision Respiratory: short of breath Cardiovascular: No chest pain; edema; No palpitations Gastrointestinal: No abdominal pain, No nausea, No vomiting Genitourinary: No decreased output, No discharge Musculoskeletal: No back pain, No joint pain Skin: No change in color, No change in hair/nails Psychiatric/Neurological: Denies Anxiety, Denies Depressed, Denies Emotional Problems All Other Systems Reviewed Negative Unless Noted: Yes (Negative excepted noted.) Physical Exam-General Problems Physical Exam Vital Signs Vital Signs - First Documented 08/22/22 15:36 O2 Flow Rate 0.00 FiO2 21 Capillary Refill : General Appearance: no apparent distress, other (chronically ill appearing. laying in bed) HEENT: PERRL/EOMI, normal ENT inspection Neck: non-tender, supple Respiratory: chest non-tender, no respiratory distress, no accessory muscle use, other (breathing fatigued) Cardiovascular: regular rate, rhythm, no JVD Gastrointestinal: non tender, soft Rectal: deferred Back: no CVA tenderness, no vertebral tenderness Extremities: swelling, other (bruising lower ext b/l) Neurologic/Psychiatric: alert, normal mood/affect, oriented x 3 Skin: other (dusky color) Lymphatic: no adenopathy Data Review Labs Laboratory Tests 08/22/22 15:47: Blood Gas Puncture Site RIGHT RADIAL, Blood Gas Patient Temperature 36.2, Arterial Blood pH 7.45H, Arterial Blood Partial Pressure CO2 33L, Arterial Blood Partial Pressure O2 67L, Arterial Blood HCO3 23, Arterial Blood Total CO2 23.8, Arterial Blood Oxygen Saturation 96, Arterial Blood Base Excess -0.8, Luc Test YES-POS, Blood Gas Ventilator Setting NO, Blood Gas Inspired Oxygen N/A 08/22/22 15:50: White Blood Count 8.2, Red Blood Count 3.90, Hemoglobin 12.1, Hematocrit 38, Mean Corpuscular Volume 97, Mean Corpuscular Hemoglobin 31, Mean Corpuscular Hemoglobin Concent 32, Red Cell Distribution Width 14.9H, Platelet Count 406H, Mean Platelet Volume 8.7L, Immature Granulocyte % (Auto) 1, Neutrophils (%) (Auto) 59, Lymphocytes (%) (Auto) 25, Monocytes (%) (Auto) 14H, Eosinophils (%) (Auto) 1, Basophils (%) (Auto) 0, Neutrophils # (Auto) 4.8, Lymphocytes # (Auto) 2.1, Monocytes # (Auto) 1.1H, Eosinophils # (Auto) 0.1, Basophils # (Auto) 0.0, Immature Granulocyte # (Auto) 0.1, Erythrocyte Sedimentation Rate 36H, D-Dimer 6.77H, Sodium Level 141, Potassium Level 4.4, Chloride Level 109H, Carbon Dioxide Level 21, Anion Gap 11, Blood Urea Nitrogen 27H, Creatinine 1.22, Estimat Glomerular Filtration Rate 45, BUN/Creatinine Ratio 22, Glucose Level 99, Lactic Acid Level 1.68, Calcium Level 8.5, Corrected Calcium 9.5, Total Bilirubin 0.4, Aspartate Amino Transf (AST/SGOT) 70H, Alanine Aminotransferase (ALT/SGPT) 47, Alkaline Phosphatase 219H, Troponin I < 0.028, C-Reactive Protein High Sensitivity 5.66H, B-Type Natriuretic Peptide 363.2H, Total Protein 6.0L, Albumin 2.7L 08/22/22 17:10: Urine Color YELLOW, Urine Clarity CLEAR, Urine pH 5.5, Urine Specific [place] 1.015L, Urine Protein NEGATIVE, Urine Glucose (UA) NEGATIVE, Urine Ketones NEGATIVE, Urine Nitrite NEGATIVE, Urine Bilirubin NEGATIVE, Urine Urobilinogen 0.2, Urine Leukocyte Esterase NEGATIVE, Urine RBC (Auto) NEGATIVE, Urine RBC NONE, Urine WBC NONE, Urine Squamous Epithelial Cells 0-2, Urine Crystals NONE, Urine Bacteria NEGATIVE, Urine Casts NONE, Urine Mucus NEGATIVE, Urine Culture Indicated NO Assessment/Plan Assessment/Plan Assessment/Plan 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
[2022-08-22] MEDS ORDERED: RT-ALBUTEROL SULF 2.5 MG/3 ML PRE-MIX VIAL INH SCH (21:00)
[2022-08-22] MEDS ORDERED: APIXABAN 5 MG (ELIQUIS) TABLET PO SCH (21:00)
[2022-08-22] MEDS: DOCUSATE SODIUM 100 MG (COLACE) CAP PO SCH (21:37)
[2022-08-22] MEDS: SENNOSIDES 8.6 MG (SENOKOT) TAB PO SCH (21:37)
[2022-08-22] MEDS: CEFEPIME INJECTION 1,000 MG in NS (IVPB) 50 ML IV SCH (23:43)
[2022-08-23 04:02] VITALS: BP 126/62
[2022-08-23 05:49] LABS: BASOPHILS # (AUTO) 0.1 10^3/uL (0.0-0.1); BASOPHILS % (AUTO) 1 % (0-10); EOSINOPHILS # (AUTO) 0.2 10^3/uL (0.0-0.3); EOSINOPHILS % (AUTO) 2 % (0-10); HEMATOCRIT 35 % (35-52); HEMOGLOBIN 11.3 g/dL (11.5-16.0); LYMPHOCYTES # (AUTO) 2.5 10^3/uL (1.0-4.0); LYMPHOCYTES % (AUTO) 29 % (12-44); MEAN CORPUSCULAR HEMOGLOBIN 31 pg (25-34); MEAN CORPUSCULAR HGB CONC 33 g/dL (32-36); MEAN CORPUSCULAR VOLUME 96 fL (80-99); MEAN PLATELET VOLUME 8.8 fL (9.0-12.2); MONOCYTES # (AUTO) 1.1 10^3/uL (0.0-1.0); MONOCYTES % (AUTO) 13 % (0-12); NEUTROPHILS # (AUTO) 4.6 10^3/uL (1.8-7.8); NEUTROPHILS % (AUTO) 54 % (42-75); PLATELET COUNT 350 10^3/uL (130-400); WHITE BLOOD COUNT 8.5 10^3/uL (4.3-11.0)
[2022-08-23 06:21] LABS: ALBUMIN 2.5 GM/DL (3.2-4.5); BILIRUBIN,TOTAL 0.4 MG/DL (0.1-1.0); CALCIUM 8.3 MG/DL (8.5-10.1); CREATININE SERUM 1.11 MG/DL (0.60-1.30); TOTAL PROTEIN 5.3 GM/DL (6.4-8.2)
--- NOTE | 2022-08-23 06:42 | History & Physical ---
History of Present Illness HPI/Chief Complaint Chief complaint: Shortness of breath HPI: This is a 77-year-old female clinic patient of mine with a past medical history of fibromyalgia and hypothyroidism and hypertension and PVCs who presented as a direct admit from my clinic due to worsening status with shortness of breath. Work-up from the day before revealed bilateral pleural effusions and elevated liver enzymes concerning for critical illness and impending cardiac event. I have reviewed all the results with the patient and consulted Dr. Zamarripa due to bilateral pleural effusions in need of thoracenteses. Patient feels a little better and she has been maintained on broad-spectrum IV antibiotics for presumed pneumonia. Patient still remains with an ashen appearance and different clinical assessment from 15 years of taking care of her at the clinic. Source: patient Exam Limitations: no limitations Date Seen 08/23/22 Time Seen by a Provider: 11:00 Attending Physician Ewa Ochoa DO PCP Admitting Physician: Ewa Ochoa DO Attending Physician: Ewa Ochoa DO Referring Physician Date of Admission Aug 22, 2022 at 14:20 Home Medications & Allergies Home Medications Reviewed patient Home Medication Reconciliation performed by pharmacy medication reconciliations optical technician and/or nursing. Patients Allergies have been reviewed. Allergies Allergies Coded Allergies Sulfa (Sulfonamide Antibiotics) (Unverified Allergy, Unknown, 11/25/17) ciprofloxacin (Unverified Allergy, Unknown, 11/25/17) Past Uiiwphx-Zxtwoq-Uddnfw Hx Past Med/Social Hx: Reviewed Nursing Past Med/Soc Hx, Reviewed and Corrections made Patient Social History Marrital Status: Employed/Student: retired Alcohol Use: Denies Use Smoking Status: Never a Smoker Recent Hopitalizations: No Immunizations Up To Date Tetanus Booster (TDap): Unknown Date of Pneumonia Vaccine: Nov 02, 2017 Date of Influenza Vaccine: Dec 02, 2018 Seasonal Allergies Seasonal Allergies: Yes Past Medical History Surgeries: Tubal Ligation Respiratory: Pneumonia Cardiac: High Cholesterol, Hypertension Reproductive: No Sexually Transmitted Disease: No HIV/AIDS: No Tubal Ligation Gastrointestinal: Chronic Constipation Musculoskeletal: Arthritis, Fibromyalgia Endocrine: Hypothyroidsim Loss of Vision: Bilateral Hearing Impairment: Denies History of Blood Disorders: No Adverse Reaction to Blood Leon: No (N/A) Family History No Pertinent Family Hx, Diabetes Review of Systems Constitutional: see HPI, dizziness, malaise, weakness EENTM: no symptoms reported Respiratory: dyspnea on exertion, short of breath Cardiovascular: no symptoms reported Gastrointestinal: no symptoms reported Genitourinary: no symptoms reported Musculoskeletal: back pain Skin: no symptoms reported Psychiatric/Neurological: Depressed All Other Systems Reviewed Negative Unless Noted: Yes Physical Exam Physical Exam Vital Signs Vital Signs - First Documented 08/22/22 15:36 O2 Flow Rate 0.00 FiO2 21 Capillary Refill : Height, Weight, BMI Height: 5'10.00" Weight: 165lbs. 2.0oz. 74.157511oc; 30.84 BMI Method:Stated General Appearance: No Apparent Distress, WD/WN, Chronically ill, Other ([place] and ashen) Eyes: Bilateral Eye Normal Inspection, Bilateral Eye PERRL HEENT: PERRL/EOMI, Normal ENT Inspection, Pharynx Normal Neck: Full Range of Motion, Normal Inspection, Non Tender, Supple, Carotid Bruit Respiratory: Chest Non Tender, No Accessory Muscle Use, No Respiratory Distress, Decreased Breath Sounds Cardiovascular: Regular Rate, Rhythm, No Edema, No Gallop, No JVD, No Murmur, Normal Peripheral Pulses Gastrointestinal: Normal Bowel Sounds, No Organomegaly, No Pulsatile Mass, Non Tender, Soft Back: Normal Inspection, No CVA Tenderness, No Vertebral Tenderness Extremity: Normal Capillary Refill, Normal Inspection, Normal Range of Motion, Non Tender, No Calf Tenderness, No Pedal Edema Neurologic/Psychiatric: Alert, Oriented x3, No Motor/Sensory Deficits, 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 Assessment/Plan Admission Diagnosis Assessment: Shortness of breath Recent pneumonia 2 weeks ago Bilateral pleural effusions in need of bilateral thoracenteses by Dr. Zamarripa holding oral anticoagulation Depression Fibromyalgia Hypothyroidism Hypertension Hyperlipidemia Plan: Hold oral anticoagulation in preparation for thoracentesis Appreciate Dr. Zamarripa Ambulate Home meds IV antibiotics Echo review Admission Status: Observation EWA OCHOA DO Aug 23, 2022 06:42
[2022-08-23 07:16] VITALS: BP 119/60
[2022-08-23] MEDS: SENNOSIDES 8.6 MG (SENOKOT) TAB PO SCH ×2 (08:30→20:41)
[2022-08-23] MEDS: CEFEPIME INJECTION 1,000 MG in NS (IVPB) 50 ML IV SCH ×3 (08:30→23:18)
[2022-08-23] MEDS: DOCUSATE SODIUM 100 MG (COLACE) CAP PO SCH ×2 (08:30→20:41)
[2022-08-23] MEDS: VANCOMYCIN 1250 MG/NS 250 ML PREMIX IV SCH (09:32)
--- NOTE | 2022-08-23 11:12 | Progress Note - Surgery ---
Subjective Date Seen by a Provider: Aug 23, 2022 Time Seen by a Provider: 11:12 Subjective/Events-last exam Feeling better. Slightly decreased fluid on lower extremities. Minimal shortness of breath when sitting. Still does not want to do much activity for this causes her to be fatigued. No new complaints. Denies any nausea vomiting fever sweats chills or chest pain. Focused Exam Lactate Level 08/22/22 15:50: Lactic Acid Level 1.68 Objective Exam Vital Signs Date Time Temp Pulse Resp B/P (MAP) Pulse Ox O2 Delivery O2 Flow Rate FiO2 08/23/22 09:05 Room Air 08/23/22 08:00 93 Room Air 08/23/22 07:16 36.4 78 18 119/60 (79) 93 Room Air 08/23/22 07:00 76 08/23/22 04:02 36.4 71 18 126/62 (83) 97 Room Air 08/23/22 01:00 77 08/22/22 23:44 36.6 75 18 120/58 (78) 93 Room Air 08/22/22 21:23 Room Air 08/22/22 20:00 36.4 65 18 130/70 (90) 96 Room Air 08/22/22 20:00 Room Air 08/22/22 19:04 96 08/22/22 18:47 36.4 63 17 134/67 (89) 94 Room Air 08/22/22 17:17 36.4 48 18 138/79 (98) 98 Room Air 08/22/22 17:08 45 119/75 (90) 92 08/22/22 17:00 98 Room Air 08/22/22 16:57 69 08/22/22 16:54 67 119/75 (90) 98 08/22/22 16:39 71 112/71 (85) 96 08/22/22 16:24 36.3 72 123/73 (90) 96 08/22/22 16:09 71 120/72 (88) 97 08/22/22 15:54 68 113/69 (84) 97 08/22/22 15:36 98 Room Air 0.00 08/22/22 15:36 36.2 74 98 21 08/22/22 15:30 36.2 76 18 124/74 (91) 97 Room Air 08/22/22 15:30 36.2 76 18 124/74 (91) 97 Room Air 08/22/22 15:30 36.2 76 18 124/74 (91) 97 Room Air I & O 08/23/22 07:00 Intake Total 700 ml Balance 700 ml Capillary Refill : General Appearance: No Apparent Distress, Chronically ill HEENT: PERRL/EOMI, Normal ENT Inspection Neck: Normal Inspection, Non Tender Respiratory: Chest Non Tender, No Accessory Muscle Use, No Respiratory Distress Cardiovascular: Regular Rate, Rhythm, No JVD Gastrointestinal: non tender, soft Extremity: Non Tender, No Calf Tenderness, Swelling (Less) Neurologic/Psychiatric: Alert, Oriented x3 Skin: Warm/Dry, Ecchymosis (Bilateral lower extremities) Lymphatic: No Adenopathy Results Lab Laboratory Tests 08/22/22 15:47: Blood Gas Puncture Site RIGHT RADIAL, Blood Gas Patient Temperature 36.2, Arterial Blood pH 7.45H, Arterial Blood Partial Pressure CO2 33L, Arterial Blood Partial Pressure O2 67L, Arterial Blood HCO3 23, Arterial Blood Total CO2 23.8, Arterial Blood Oxygen Saturation 96, Arterial Blood Base Excess -0.8, Luc Test YES-POS, Blood Gas Ventilator Setting NO, Blood Gas Inspired Oxygen N/A 08/22/22 15:50: White Blood Count 8.2, Red Blood Count 3.90, Hemoglobin 12.1, Hematocrit 38, Mean Corpuscular Volume 97, Mean Corpuscular Hemoglobin 31, Mean Corpuscular Hemoglobin Concent 32, Red Cell Distribution Width 14.9H, Platelet Count 406H, Mean Platelet Volume 8.7L, Immature Granulocyte % (Auto) 1, Neutrophils (%) (Auto) 59, Lymphocytes (%) (Auto) 25, Monocytes (%) (Auto) 14H, Eosinophils (%) (Auto) 1, Basophils (%) (Auto) 0, Neutrophils # (Auto) 4.8, Lymphocytes # (Auto) 2.1, Monocytes # (Auto) 1.1H, Eosinophils # (Auto) 0.1, Basophils # (Auto) 0.0, Immature Granulocyte # (Auto) 0.1, Erythrocyte Sedimentation Rate 36H, D-Dimer 6.77H, Sodium Level 141, Potassium Level 4.4, Chloride Level 109H, Carbon Dioxide Level 21, Anion Gap 11, Blood Urea Nitrogen 27H, Creatinine 1.22, Estimat Glomerular Filtration Rate 45, BUN/Creatinine Ratio 22, Glucose Level 99, Lactic Acid Level 1.68, Calcium Level 8.5, Corrected Calcium 9.5, Total Bilirubin 0.4, Aspartate Amino Transf (AST/SGOT) 70H, Alanine Aminotransferase (ALT/SGPT) 47, Alkaline Phosphatase 219H, Troponin I < 0.028, C-Reactive Protein High Sensitivity 5.66H, B-Type Natriuretic Peptide 363.2H, Total Protein 6.0L, Albumin 2.7L 08/22/22 17:10: Urine Color YELLOW, Urine Clarity CLEAR, Urine pH 5.5, Urine Specific [place] 1.015L, Urine Protein NEGATIVE, Urine Glucose (UA) NEGATIVE, Urine Ketones NEGATIVE, Urine Nitrite NEGATIVE, Urine Bilirubin NEGATIVE, Urine Urobilinogen 0.2, Urine Leukocyte Esterase NEGATIVE, Urine RBC (Auto) NEGATIVE, Urine RBC NONE, Urine WBC NONE, Urine Squamous Epithelial Cells 0-2, Urine Crystals NONE, Urine Bacteria NEGATIVE, Urine Casts NONE, Urine Mucus NEGATIVE, Urine Culture Indicated NO 08/23/22 05:42: White Blood Count 8.5, Red Blood Count 3.63L, Hemoglobin 11.3L, Hematocrit 35, Mean Corpuscular Volume 96, Mean Corpuscular Hemoglobin 31, Mean Corpuscular Hemoglobin Concent 33, Red Cell Distribution Width 14.7H, Platelet Count 350, Mean Platelet Volume 8.8L, Immature Granulocyte % (Auto) 1, Neutrophils (%) (Auto) 54, Lymphocytes (%) (Auto) 29, Monocytes (%) (Auto) 13H, Eosinophils (%) (Auto) 2, Basophils (%) (Auto) 1, Neutrophils # (Auto) 4.6, Lymphocytes # (Auto) 2.5, Monocytes # (Auto) 1.1H, Eosinophils # (Auto) 0.2, Basophils # (Auto) 0.1, Immature Granulocyte # (Auto) 0.1, Sodium Level 139, Potassium Level 4.0, Chloride Level 110H, Carbon Dioxide Level 19L, Anion Gap 10, Blood Urea Nitrogen 25H, Creatinine 1.11, Estimat Glomerular Filtration Rate 51, BUN/Creatinine Ratio 23, Glucose Level 97, Calcium Level 8.3L, Corrected Calcium 9.5, Total Bilirubin 0.4, Aspartate Amino Transf (AST/SGOT) 64H, Alanine Aminotransferase (ALT/SGPT) 42, Alkaline Phosphatase 201H, Total Protein 5.3L, Albumin 2.5L Assessment/Plan Assessment/Plan Assessment/Plan CHF b/l pleural effusions assisted anticoagulation hold anticoagulation u/s would be able to drain effusion safer after anticoagulation held will follow discussed with patient likely drain Thursday evening or Thursday. JAKE TERESA DO Aug 23, 2022 11:12
[2022-08-23 11:56] VITALS: BP 127/63
--- NOTE | 2022-08-23 13:17 | Consultation-Cardiology ---
HPI-Cardiology Cardiology Consultation: Date of Consultation 08/23/22 Time Seen by a Provider: 12:30 Date of Admission Attending Physician Ewa Ochoa DO Admitting Physician Admitting Physician: Ewa Ochoa DO Attending Physician: Ewa Ochoa DO Consulting Physician ASHELY MCFADDEN MD, MA, FACP, FACC, FSCAI, CCDS HPI: Chief Complaint: Shortness of breath, Malaise 77 yo woman admitted by Dr Ochoa to her service on 08/22/22 with gen malaise and weakness and increasing shortness of breath and L shoulder discomfort (present continuously for several days). No cp or palp or syncope. Chronic, intermittent, bilateral leg swelling. No n/v/d Review of Systems-Cardiology Review of Systems Constitutional: malaise, tiredness; No weight loss, No weight gain Eyes: No vision change Ears/Nose/Throat: No ear discharge, No nasal drainage, No recent hearing loss Respiratory: As described under HPI Cardiovascular: As described under HPI Gastrointestinal: As described under HPI Genitourinary: No dysuria Musculoskeletal: As describe under HPI, back pain (chronic); No joint pain Skin: No rash, No ulcerations Psychiatric/Neurological: No seizure, No focal weakness, No syncope Hematologic: No bleeding abnormalities All Other Systems Reviewed Negative Unless Noted: Yes (Negative excepted noted.) YON-Scrsui-Cfsaco Hx Patient Social History Smoking Status: Never a Smoker Alcohol Use?: Yes Pt feels they are or have been: No Immunizations Up To Date Tetanus Booster (TDap): Unknown Date of Pneumonia Vaccine: Nov 02, 2017 Date of Influenza Vaccine: Dec 02, 2018 Past Medical History PMH As described under Assessment. Family Medical History Family Medical History: Does not report fam h/o early CAD or SCD Allergies and Home Medications Allergies Coded Allergies: Sulfa (Sulfonamide Antibiotics) (Unverified Allergy, Unknown, 11/25/17) ciprofloxacin (Unverified Allergy, Unknown, 11/25/17) Patient Home Medication List Home Medication List Reviewed: Yes Apixaban (Eliquis) 5 Mg Tablet, 1 EA PO BID, (Reported) Entered as Reported by: PEGGY WALLACE on 08/22/22 1605 Last Action: New Order Aspirin (Aspirin EC) 81 Mg Tablet., 81 MG PO DAILY, (Reported) Entered as Reported by: LEVY SÁNCHEZ on 08/04/22952 Last Action: Reviewed Atorvastatin Calcium (Atorvastatin Calcium) 10 Mg Tablet, 10 MG PO HS, (Reported) Entered as Reported by: LEVY SÁNCHEZ on 08/04/22952 Last Action: Reviewed Calcium Carbonate/Vitamin D3 (Calcium 600 + Vit D Softgel) 600MG-12.5 Capsule, 2 EACH PO 1200, (Reported) Entered as Reported by: LEVY SÁNCHEZ on 08/04/22952 Last Action: Reviewed Cholecalciferol (Vitamin D3) (Vitamin D3) 25 Mcg (1000 Unit) Tablet, 25 MCG PO 1200, (Reported) Entered as Reported by: LEVY SÁNCHEZ on 08/04/22952 Last Action: Reviewed Duloxetine HCl (Duloxetine HCl) 30 Mg Capsule.dr, 30 MG PO DAILY, (Reported) Entered as Reported by: LEVY SÁNCHEZ on 08/04/22952 Last Action: Reviewed Estrogens Conjugated (Premarin) 0.625 Mg/Gram Cr, 1 APPLIC VG MO,WE,SA @HS, (Reported) Entered as Reported by: NIKOLAI HERNANDEZ on 11/25/17 1454 Last Action: Reviewed Furosemide (Furosemide) 20 Mg Tablet, 20 MG PO DAILY, (Reported) Entered as Reported by: LEVY SÁNCHEZ on 08/04/22952 Last Action: Reviewed L.acidoph & Paracasei,B.lactis (Probiotic) 10 Billion Cell Capsule, 1 EACH PO 1200, (Reported) Entered as Reported by: LEVY SÁNCHEZ on 08/04/22952 Last Action: Reviewed Levothyroxine Sodium (Levothyroxine Sodium) 75 Mcg Tablet, 75 MCG PO DAILY, (Reported) Entered as Reported by: LEVY SÁNCHEZ on 08/04/22952 Last Action: Reviewed Minocycline HCl (Minocycline HCl) 100 Mg Capsule, 100 MG PO BID, (Reported) Entered as Reported by: LEVY SÁNCHEZ on 08/04/22952 Last Action: Reviewed Blackwell-3/Dha/Epa/Fish Oil (Fish Oil 1,200 mg Softgel) 1,200 Mg (144 Mg-216 Mg) Capsule, 1,200 MG PO 1200, (Reported) Entered as Reported by: LEVY SÁNCHEZ on 08/04/22952 Last Action: Reviewed Potassium Chloride (Potassium Chloride) 10 Meq Tab.er.prt, 10 MEQ PO DAILY, (Reported) Entered as Reported by: LEVY SÁNCHEZ on 08/04/22952 Last Action: Reviewed Verapamil HCl (Verapamil Sr) 240 Mg Cap24h.pel, 240 MG PO DAILY, (Reported) Entered as Reported by: LEVY SÁNCHEZ on 08/04/22952 Last Action: Reviewed [Palmitoylethanolamid] , 300 MG PO BID, (Reported) Entered as Reported by: LEVY SÁNCHEZ on 08/04/22 1006 Last Action: Reviewed Discontinued Medications Cefdinir (Cefdinir) 300 Mg Capsule, 300 MG PO BID Discontinued Reason: No Longer Taking Prescribed by: EWA OCHOA on 08/06/22 0844 Last Action: Discontinued Physical Exam-Cardiology Physical Exam Vital Signs/I&O 08/23/22 08/23/22 08/23/22 08/23/22 04:02 07:00 07:16 08:00 Temp 36.4 36.4 Pulse 71 76 78 Resp 18 18 B/P (MAP) 126/62 (83) 119/60 (79) Pulse Ox 97 93 93 O2 Delivery Room Air Room Air Room Air 08/23/22 08/23/22 08/23/22 09:05 11:56 12:58 Temp 36.1 Pulse 86 84 Resp 18 B/P (MAP) 127/63 (84) Pulse Ox 100 O2 Delivery Room Air Room Air 08/23/22 00:00 Intake Total 600 ml Balance 600 ml Capillary Refill : Constitutional: AAO x 3, well-developed, well-nourished HEENT: EOMI, hearing is well preserved; No xanthelasmas are seen Neck: carotid pulses are 2 + bilaterally, with good upstrokes Respiratory: No accessory muscle use; chest expansion is symmetric, chest is bilaterally symmetric, other (diminished breath sounds at the bases) Cardiovascular: regular rate-rhythm, S1 and S2, systolic murmur (soft MARY at card base) Gastrointestinal: No tender; soft; No guarding; audible bowel sounds Extremities: No clubbing, No cyanosis Neurologic/Psychiatric: oriented x 3, other (moves all limbs equally) Skin: normal color, warm/dry; No cyanosis, No rash on exposed areas, No ulcerations on exposed areas Lymphatic: no adenopathy Data Review Labs Laboratory Tests 08/22/22 15:47: Blood Gas Puncture Site RIGHT RADIAL, Blood Gas Patient Temperature 36.2, Arterial Blood pH 7.45H, Arterial Blood Partial Pressure CO2 33L, Arterial Blood Partial Pressure O2 67L, Arterial Blood HCO3 23, Arterial Blood Total CO2 23.8, Arterial Blood Oxygen Saturation 96, Arterial Blood Base Excess -0.8, Luc Test YES-POS, Blood Gas Ventilator Setting NO, Blood Gas Inspired Oxygen N/A 08/22/22 15:50: White Blood Count 8.2, Red Blood Count 3.90, Hemoglobin 12.1, Hematocrit 38, Mean Corpuscular Volume 97, Mean Corpuscular Hemoglobin 31, Mean Corpuscular Hem oglobin Concent 32, Red Cell Distribution Width 14.9H, Platelet Count 406H, Mean Platelet Volume 8.7L, Immature Granulocyte % (Auto) 1, Neutrophils (%) (Auto) 59, Lymphocytes (%) (Auto) 25, Monocytes (%) (Auto) 14H, Eosinophils (%) (Auto) 1, Basophils (%) (Auto) 0, Neutrophils # (Auto) 4.8, Lymphocytes # (Auto) 2.1, Monocytes # (Auto) 1.1H, Eosinophils # (Auto) 0.1, Basophils # (Auto) 0.0, Im mature Granulocyte # (Auto) 0.1, Erythrocyte Sedimentation Rate 36H, D-Dimer 6.77H, Sodium Level 141, Potassium Level 4.4, Chloride Level 109H, Carbon Dioxide Level 21, Anion Gap 11, Blood Urea Nitrogen 27H, Creatinine 1.22, Estimat Glomerular Filtration Rate 45, BUN/Creatinine Ratio 22, Glucose Level 99, Lactic Acid Level 1.68, Calcium Level 8.5, Corrected Calcium 9.5, Total Bilirubin 0.4, Aspartate Amino Transf (AST/SGOT) 70H, Alanine Aminotransferase (ALT/SGPT) 47, Alkaline Phosphatase 219H, Troponin I < 0.028, C-Reactive Protein High Sensitivity 5.66H, B-Type Natriuretic Peptide 363.2H, Total Protein 6.0L, Albumin 2.7L 08/22/22 17:10: Urine Color YELLOW, Urine Clarity CLEAR, Urine pH 5.5, Urine Specific Barry 1.015L, Urine Protein NEGATIVE, Urine Glucose (UA) NEGATIVE, Urine Ketones NEGATIVE, Urine Nitrite NEGATIVE, Urine Bilirubin NEGATIVE, Urine Urobilinogen 0.2, Urine Leukocyte Esterase NEGATIVE, Urine RBC (Auto) NEGATIVE, Urine RBC NONE, Urine WBC NONE, Urine Squamous Epithelial Cells 0-2, Urine Crystals NONE, Urine Bacteria NEGATIVE, Urine Casts NONE, Urine Mucus NEGATIVE, Urine Culture Indicated NO 08/23/22 05:42: White Blood Count 8.5, Red Blood Count 3.63L, Hemoglobin 11.3L, Hematocrit 35, Mean Corpuscular Volume 96, Mean Corpuscular Hemoglobin 31, Mean Corpuscular Hemoglobin Concent 33, Red Cell Distribution Width 14.7H, Platelet Count 350, Mean Platelet Volume 8.8L, Immature Granulocyte % (Auto) 1, Neutrophils (%) (Auto) 54, Lymphocytes (%) (Auto) 29, Monocytes (%) (Auto) 13H, Eosinophils (%) (Auto) 2, Basophils (%) (Auto) 1, Neutrophils # (Auto) 4.6, Lymphocytes # (Auto) 2.5, Monocytes # (Auto) 1.1H, Eosinophils # (Auto) 0.2, Basophils # (Auto) 0.1, Immature Granulocyte # (Auto) 0.1, Sodium Level 139, Potassium Level 4.0, Chloride Level 110H, Carbon Dioxide Level 19L, Anion Gap 10, Blood Urea Nitrogen 25H, Creatinine 1.11, Estimat Glomerular Filtration Rate 51, BUN/Creatinine Ratio 23, Glucose Level 97, Calcium Level 8.3L, Corrected Calcium 9.5, Total Bilirubin 0.4, Aspartate Amino Transf (AST/SGOT) 64H, Alanine Aminotransferase (ALT/SGPT) 42, Alkaline Phosphatase 201H, Total Protein 5.3L, Albumin 2.5L Laboratory Tests 08/22/22 15:50 08/23/22 05:42 A/P-Cardiology Assessment/Admission Diagnosis Pleural eff, bilateral, awaiting thoracentesis - CT CHEST 08-22-22: There are are bilateral pleural effusions layering out to a depth of 3.5 cm on the right and 6 cm on the left. There is a small pericardial effusion. There is some edema in the dependent portions of the lungs. Ascending aorta measures 3.9 cm. There is coronary calcific arteriosclerosis. There are a few small mediastinal lymph nodes but none that appear to be pathologically enlarged. - ECHO 08-22-22 (Dr Swann): LVEF 55-60%, no pericard eff, pleural eff present, mild MR, mild TR Recent pneumonia (hospitalized in mid July 2022) Palpitations, patient was seen with Dr. Das in EP consult the past. Has history of PVCs and ventricular bigeminy - intolerance to bb (due to bradycardia). Has intermittently been on verapamil Paroxysmal atrial fibrillation, - on OAC Dyspnea on exertion - Stress test was done on December 09, 2021 with extracardiac attenuation and no significant ischemia or infarction on SPECT images stress score 5, SDS 1, ejection fraction 77% - 2D echo was done on November 20, 2021 with normal LV size, ejection fraction 55 to 60%, grade 1 diastolic dysfunction, mild to moderate aortic regurgitation, PA pressure 25 to 30 mmHg, aortic root measurement 3.7 cm has not changed compared to the study that was done the year before in 2020 Peripheral edema, chronic, likely related to venous insuff Mild bilateral carotid stenosis, last checkup was done in October 2021. Continue to monitor Lipid profile done in September 2021 showing total cholesterol 134, HDL 56, triglyceride 86, LDL 61 Hypothyroidism, followed and managed by primary care physician. Anxiety History of vitamin D deficiency Discussion and Recomendations * Diagnostic and therapeutic pleural tap * Hold OAC and resume NEO after tap * Add verapamil back to regimen * Monitor labs * Monitor rhythm * Add * Further recs based on hosp course ASHELY MCFADDEN MD FACP FAC CCDS Aug 23, 2022 13:17
[2022-08-23] MEDS ORDERED: VERAPAMIL SR 180 MG (CALAN SR) TAB PO NR (13:45)
[2022-08-23 16:00] VITALS: BP 124/65
[2022-08-23] MEDS ORDERED: VERAPAMIL SR 180 MG (CALAN SR) TAB PO SCH (18:00)
[2022-08-23] MEDS ORDERED: ESTROGENS CONJ. CREAM 30 GM (PREMARIN) TUBE VG SCH (19:30)
[2022-08-23 19:35] VITALS: BP 111/58
[2022-08-23 23:39] VITALS: BP 119/58
[2022-08-24 03:34] VITALS: BP 142/72
[2022-08-24 05:44] LABS: BASOPHILS # (AUTO) 0.1 10^3/uL (0.0-0.1); BASOPHILS % (AUTO) 1 % (0-10); EOSINOPHILS # (AUTO) 0.2 10^3/uL (0.0-0.3); EOSINOPHILS % (AUTO) 2 % (0-10); HEMATOCRIT 35 % (35-52); HEMOGLOBIN 11.3 g/dL (11.5-16.0); LYMPHOCYTES # (AUTO) 1.6 10^3/uL (1.0-4.0); LYMPHOCYTES % (AUTO) 20 % (12-44); MEAN CORPUSCULAR HEMOGLOBIN 31 pg (25-34); MEAN CORPUSCULAR HGB CONC 33 g/dL (32-36); MEAN CORPUSCULAR VOLUME 95 fL (80-99); MEAN PLATELET VOLUME 8.9 fL (9.0-12.2); MONOCYTES # (AUTO) 1.2 10^3/uL (0.0-1.0); MONOCYTES % (AUTO) 15 % (0-12); NEUTROPHILS # (AUTO) 4.9 10^3/uL (1.8-7.8); NEUTROPHILS % (AUTO) 62 % (42-75); PLATELET COUNT 352 10^3/uL (130-400)
[2022-08-24 05:56] LABS: ALBUMIN 2.4 GM/DL (3.2-4.5); POTASSIUM 4.2 MMOL/L (3.6-5.0)
[2022-08-24 05:57] LABS: CALCIUM 8.4 MG/DL (8.5-10.1)
[2022-08-24 05:59] LABS: TOTAL PROTEIN 5.3 GM/DL (6.4-8.2)
[2022-08-24 06:00] LABS: BILIRUBIN,TOTAL 0.5 MG/DL (0.1-1.0)
[2022-08-24 06:02] LABS: CREATININE SERUM 1.06 MG/DL (0.60-1.30)
[2022-08-24] MEDS: LEVOTHYROXINE 75 MCG (LEVOTHROID) TABLET PO SCH (06:26)
[2022-08-24 07:23] VITALS: BP 132/61
--- NOTE | 2022-08-24 07:23 | Progress Note ---
Subjective Date Seen by a Provider: Aug 24, 2022 Time Seen by a Provider: 11:00 Subjective/Events-last exam Patient doing a lot better Less short of breath Thoracentesis will be done tomorrow Albumin 2.4 gives rise to poor reserve Son at the bedside No pain Review of Systems General: Fatigue, Malaise Pulmonary: Dyspnea Focused Exam Lactate Level 08/22/22 15:50: Lactic Acid Level 1.68 Objective Exam Last Set of Vital Signs Vital Signs Date Time Temp Pulse Resp B/P (MAP) Pulse Ox O2 Delivery O2 Flow Rate FiO2 08/24/22 03:34 36.1 84 18 142/72 (95) 95 Room Air 0.00 0.00 08/22/22 15:36 21 Capillary Refill : I&O Intake and Output 08/24/22 00:00 Intake Total 2270 ml Output Total 2300 ml Balance -30 ml Intake Oral 2270 ml Output Urine Total 2300 ml # Voids 2 General: Alert, Oriented X3, Cooperative, No Acute Distress Lungs: Clear to Auscultation, Normal Air Movement, Other ( diminished breath sounds in bases) Heart: Regular Rate Psych/Mental Status: Mental Status NL, Mood NL Results Lab Laboratory Tests 08/24/22 05:23: White Blood Count 8.0, Red Blood Count 3.65L, Hemoglobin 11.3L, Hematocrit 35, Mean Corpuscular Volume 95, Mean Corpuscular Hemoglobin 31, Mean Corpuscular He moglobin Concent 33, Red Cell Distribution Width 14.6H, Platelet Count 352, Mean Platelet Volume 8.9L, Immature Granulocyte % (Auto) 1, Neutrophils (%) (Auto) 62, Lymphocytes (%) (Auto) 20, Monocytes (%) (Auto) 15H, Eosinophils (%) (Auto) 2, Basophils (%) (Auto) 1, Neutrophils # (Auto) 4.9, Lymphocytes # (Auto) 1.6, Monocytes # (Auto) 1.2H, Eosinophils # (Auto) 0.2, Basophils # (Auto) 0.1, Immature Granulocyte # (Auto) 0.1, Sodium Level 138, Potassium Level 4.2, Chloride Level 108H, Carbon Dioxide Level 21, Anion Gap 9, Blood Urea Nitrogen 22H, Creatinine 1.06, Estimat Glomerular Filtration Rate 54, BUN/Creatinine Ratio 21, Glucose Level 89, Calcium Level 8.4L, Corrected Calcium 9.7, Total Bilirubin 0.5, Aspartate Amino Transf (AST/SGOT) 48H, Alanine Aminotransferase (ALT/SGPT) 35, Alkaline Phosphatase 213H, Total Protein 5.3L, Albumin 2.4L Microbiology 08/22/22 Blood Culture - Preliminary, Resulted No growth Assessment/Plan Assessment/Plan Assess & Plan/Chief Complaint Assessment: Shortness of breath Recent pneumonia 2 weeks ago Bilateral pleural effusions in need of bilateral thoracenteses by Dr. Zamarripa holding oral anticoagulation Depression Fibromyalgia Hypothyroidism Hypertension Hyperlipidemia Plan: Hold oral anticoagulation in preparation for thoracentesis Appreciate Dr. Zamarripa Ambulate Home meds IV antibiotics Echo review FRANTZ OCHOA DO Aug 24, 2022 07:23
[2022-08-24] MEDS: CEFEPIME INJECTION 1,000 MG in NS (IVPB) 50 ML IV SCH ×2 (08:08→15:33)
[2022-08-24] MEDS: FUROSEMIDE 20 MG (LASIX) TAB PO SCH (08:08)
[2022-08-24] MEDS: VERAPAMIL SR 240 MG (CALAN SR) TAB PO SCH (08:08)
[2022-08-24] MEDS: SENNOSIDES 8.6 MG (SENOKOT) TAB PO SCH ×2 (08:08→20:15)
[2022-08-24] MEDS: DULoxetine 30 MG (CYMBALTA) CAP PO SCH (08:08)
[2022-08-24] MEDS: DOCUSATE SODIUM 100 MG (COLACE) CAP PO SCH ×2 (08:08→20:15)
--- NOTE | 2022-08-24 08:58 | Progress Note - Surgery ---
Subjective Date Seen by a Provider: Aug 24, 2022 Time Seen by a Provider: 08:58 Subjective/Events-last exam Breathing about the same. Okay without activity. Anticoagulation on hold. No new complaints. Denies n/v fever sweats chills or chest pain. Focused Exam Lactate Level 08/22/22 15:50: Lactic Acid Level 1.68 Objective Exam Vital Signs Date Time Temp Pulse Resp B/P (MAP) Pulse Ox O2 Delivery O2 Flow Rate FiO2 08/24/22 08:41 95 Room Air 0.00 08/24/22 07:23 36.4 80 18 132/61 (84) 95 Room Air 08/24/22 07:00 79 08/24/22 03:34 36.1 84 18 142/72 (95) 95 Room Air 0.00 0.00 08/24/22 01:21 92 08/23/22 23:39 36.3 79 18 119/58 (78) 93 Room Air 0.00 0.00 08/23/22 21:36 Room Air 08/23/22 20:00 93 Room Air 08/23/22 19:35 37.2 82 18 111/58 (75) 95 Room Air 08/23/22 19:00 83 08/23/22 16:00 37.2 76 18 124/65 (84) 96 Room Air 08/23/22 12:58 84 08/23/22 11:56 36.1 86 18 127/63 (84) 100 Room Air 08/23/22 09:05 Room Air I & O 08/24/22 07:00 Intake Total 2270 ml Output Total 3400 ml Balance -1130 ml Capillary Refill : General Appearance: No Apparent Distress, WD/WN, Chronically ill, Other (Brooks and ashen) HEENT: PERRL/EOMI, Normal ENT Inspection, Pharynx Normal Neck: Full Range of Motion, Normal Inspection, Non Tender, Supple, Carotid Bruit Respiratory: Chest Non Tender, No Accessory Muscle Use, No Respiratory Distress, Decreased Breath Sounds Cardiovascular: Regular Rate, Rhythm, No JVD, Normal Peripheral Pulses Gastrointestinal: non tender, soft Extremity: Normal Capillary Refill, Normal Inspection, Normal Range of Motion, Non Tender, No Calf Tenderness, No Pedal Edema Neurologic/Psychiatric: Alert, Oriented x3, No Motor/Sensory Deficits, Depressed Affect Skin: Normal Color, Warm/Dry Lymphatic: No Adenopathy Results Lab Laboratory Tests 08/24/22 05:23: White Blood Count 8.0, Red Blood Count 3.65L, Hemoglobin 11.3L, Hematocrit 35, Mean Corpuscular Volume 95, Mean Corpuscular Hemoglobin 31, Mean Corpuscular Hemoglobin Concent 33, Red Cell Distribution Width 14.6H, Platelet Count 352, Mean Platelet Volume 8.9L, Immature Granulocyte % (Auto) 1, Neutrophils (%) (Auto) 62, Lymphocytes (%) (Auto) 20, Monocytes (%) (Auto) 15H, Eosinophils (%) (Auto) 2, Basophils (%) (Auto) 1, Neutrophils # (Auto) 4.9, Lymphocytes # (Auto) 1.6, Monocytes # (Auto) 1.2H, Eosinophils # (Auto) 0.2, Basophils # (Auto) 0.1, Immature Granulocyte # (Auto) 0.1, Sodium Level 138, Potassium Level 4.2, Chloride Level 108H, Carbon Dioxide Level 21, Anion Gap 9, Blood Urea Nitrogen 22H, Creatinine 1.06, Estimat Glomerular Filtration Rate 54, BUN/Creatinine Ratio 21, Glucose Level 89, Calcium Level 8.4L, Corrected Calcium 9.7, Total Bilirubin 0.5, Aspartate Amino Transf (AST/SGOT) 48H, Alanine Aminotransferase (ALT/SGPT) 35, Alkaline Phosphatase 213H, Total Protein 5.3L, Albumin 2.4L Microbiology 08/22/22 Blood Culture - Preliminary, Resulted No growth Assessment/Plan Assessment/Plan Assessment/Plan CHF b/l pleural effusions longterm anticoagulation hold anticoagulation u/s would be able to drain effusion safer after anticoagulation held will follow discussed with patient get u/s in am and if drainable thoracentesis- Thursday. JAKE TERESA DO Aug 24, 2022 08:58
[2022-08-24] MEDS ORDERED: VERAPAMIL HCL 240 MG PO SCH (09:00)
[2022-08-24] MEDS: VANCOMYCIN 1250 MG/NS 250 ML PREMIX IV SCH (10:27)
[2022-08-24] MEDS: VITAMIN D3 25 MCG (1,000 UNITS) TABLET PO SCH (11:32)
[2022-08-24] MEDS: LACTOBACILLUS ACIDOPHILUS (PROBIOTIC) CAPSULE PO SCH (11:32)
[2022-08-24] MEDS: OMEGA 3 (FISH OIL) 1000 MG CAP PO SCH (11:32)
[2022-08-24] MEDS ORDERED: NON-FORMULARY MEDICATION 1 EA EA (Omega-3/Dha/Epa/Fish Oil (Fish Oil 1,200 mg Softgel) 1,2 PO SCH (12:00)
[2022-08-24] MEDS ORDERED: CALCIUM CARB + VIT D 600 MG (CALCARB + D) TAB PO SCH (12:00)
--- NOTE | 2022-08-24 12:08 | Progress Note - Cardiology ---
Cardiology SOAP Progress Note Subjective: Gen weakness and malaise and dizziness No cp or palp or syncope No n/v/d No swelling No focal weakness Objective: I&O/Vital Signs 08/24/22 08/24/22 08/24/22 08/24/22 01:21 03:34 07:00 07:23 Temp 36.1 36.4 Pulse 92 84 79 80 Resp 18 18 B/P (MAP) 142/72 (95) 132/61 (84) Pulse Ox 95 95 O2 Delivery Room Air Room Air O2 Flow Rate 0.00 0.00 08/24/22 08/24/22 08:00 08:41 Pulse Ox 93 95 O2 Delivery Room Air Room Air O2 Flow Rate 0.00 08/24/22 00:00 Intake Total 2220 ml Output Total 2300 ml Balance -80 ml Weight (Pounds): 165 Weight (Ounces): 2.0 Weight (Calculated Kilograms): 74.016750 Constitutional: AAO x 3, well-developed, well-nourished Respiratory: No accessory muscle use; chest expansion is symmetric, chest is bilaterally symmetric, other (diminished breath sounds at the bases) Cardiovascular: regular rate-rhythm, S1 and S2, systolic murmur (soft MARY at card base) Gastrointestional: No tender; soft; No guarding; audible bowel sounds Extremities: No clubbing, No cyanosis Neurologic/Psychiatric: oriented x 3, other (moves all limbs equally) Skin: normal color, warm/dry; No cyanosis, No rash on exposed areas, No ulcerations on exposed areas Results/Procedures: Labs Laboratory Tests 08/24/22 05:23: White Blood Count 8.0, Red Blood Count 3.65L, Hemoglobin 11.3L, Hematocrit 35, Mean Corpuscular Volume 95, Mean Corpuscular Hemoglobin 31, Mean Corpuscular Hemoglobin Concent 33, Red Cell Distribution Width 14.6H, Platelet Count 352, Mean Platelet Volume 8.9L, Immature Granulocyte % (Auto) 1, Neutrophils (%) (Auto) 62, Lymphocytes (%) (Auto) 20, Monocytes (%) (Auto) 15H, Eosinophils (%) (Auto) 2, Basophils (%) (Auto) 1, Neutrophils # (Auto) 4.9, Lymphocytes # (Auto) 1.6, Monocytes # (Auto) 1.2H, Eosinophils # (Auto) 0.2, Basophils # (Auto) 0.1, Immature Granulocyte # (Auto) 0.1, Sodium Level 138, Potassium Level 4.2, Chloride Level 108H, Carbon Dioxide Level 21, Anion Gap 9, Blood Urea Nitrogen 22H, Creatinine 1.06, Estimat Glomerular Filtration Rate 54, BUN/Creatinine Ratio 21, Glucose Level 89, Calcium Level 8.4L, Corrected Calcium 9.7, Total Bilirubin 0.5, Aspartate Amino Transf (AST/SGOT) 48H, Alanine Aminotransferase (ALT/SGPT) 35, Alkaline Phosphatase 213H, Total Protein 5.3L, Albumin 2.4L Microbiology 08/22/22 Blood Culture - Preliminary, Resulted No growth Laboratory Tests 08/22/22 15:50 08/23/22 05:42 08/24/22 05:23 A/P: Assessment: Pleural eff, bilateral, awaiting thoracentesis - CT CHEST 08-22-22: There are are bilateral pleural effusions layering out to a depth of 3.5 cm on the right and 6 cm on the left. There is a small pericardial effusion. There is some edema in the dependent portions of the lungs. Ascending aorta measures 3.9 cm. There is coronary calcific arteriosclerosis. There are a few small mediastinal lymph nodes but none that appear to be pathologically enlarged. - ECHO 08-22-22 (Dr Swann): LVEF 55-60%, no pericard eff, pleural eff present, mild MR, mild TR Recent pneumonia (hospitalized in mid July 2022) Palpitations, patient was seen with Dr. Das in EP consult the past. Has history of PVCs and ventricular bigeminy - intolerance to bb (due to bradycardia). Has intermittently been on verapamil Paroxysmal atrial fibrillation, - on OAC Dyspnea on exertion - Stress test was done on December 09, 2021 with extracardiac attenuation and no significant ischemia or infarction on SPECT images stress score 5, SDS 1, ejection fraction 77% - 2D echo was done on November 20, 2021 with normal LV size, ejection fraction 55 to 60%, grade 1 diastolic dysfunction, mild to moderate aortic regurgitation, PA pressure 25 to 30 mmHg, aortic root measurement 3.7 cm has not changed compared to the study that was done the year before in 2020 Peripheral edema, chronic, likely related to venous insuff Mild bilateral carotid stenosis, last checkup was done in October 2021. Continue to monitor Lipid profile done in September 2021 showing total cholesterol 134, HDL 56, triglyceride 86, LDL 61 Hypothyroidism, followed and managed by primary care physician. Anxiety History of vitamin D deficiency Plan: * Diagnostic and therapeutic pleural tap * Hold OAC and resume NEO after tap * Continue verapamil at home dose * Monitor labs * Monitor rhythm * Further recs based on hosp course ASHELY MCFADDEN MD FACP FAC CCDS Aug 24, 2022 12:08
[2022-08-24] MEDS ORDERED: VANCOMYCIN INJECTION 0.1 MG in NS (IVPB) 250 ML IV SCH (12:15)
[2022-08-24 12:32] VITALS: BP 121/60
[2022-08-24 15:39] VITALS: BP 109/69
[2022-08-24 20:04] VITALS: BP 117/73
[2022-08-24 23:38] VITALS: BP 121/58
[2022-08-25] MEDS: CEFEPIME INJECTION 1,000 MG in NS (IVPB) 50 ML IV SCH ×2 (00:05→09:12)
[2022-08-25 03:45] VITALS: BP 135/89
[2022-08-25 06:09] LABS: BASOPHILS # (AUTO) 0.1 10^3/uL (0.0-0.1); BASOPHILS % (AUTO) 1 % (0-10); EOSINOPHILS # (AUTO) 0.2 10^3/uL (0.0-0.3); EOSINOPHILS % (AUTO) 2 % (0-10); HEMATOCRIT 37 % (35-52); HEMOGLOBIN 12.1 g/dL (11.5-16.0); LYMPHOCYTES # (AUTO) 1.9 10^3/uL (1.0-4.0); LYMPHOCYTES % (AUTO) 22 % (12-44); MEAN CORPUSCULAR HEMOGLOBIN 31 pg (25-34); MEAN CORPUSCULAR HGB CONC 33 g/dL (32-36); MEAN CORPUSCULAR VOLUME 94 fL (80-99); MEAN PLATELET VOLUME 9.1 fL (9.0-12.2); MONOCYTES # (AUTO) 1.4 10^3/uL (0.0-1.0); MONOCYTES % (AUTO) 16 % (0-12); NEUTROPHILS # (AUTO) 5.1 10^3/uL (1.8-7.8); NEUTROPHILS % (AUTO) 59 % (42-75); PLATELET COUNT 366 10^3/uL (130-400); WHITE BLOOD COUNT 8.7 10^3/uL (4.3-11.0)
[2022-08-25] MEDS: LEVOTHYROXINE 75 MCG (LEVOTHROID) TABLET PO SCH (06:14)
[2022-08-25 06:41] LABS: ALBUMIN 2.5 GM/DL (3.2-4.5); BILIRUBIN,TOTAL 0.6 MG/DL (0.1-1.0); CALCIUM 8.8 MG/DL (8.5-10.1); CREATININE SERUM 1.28 MG/DL (0.60-1.30); POTASSIUM 4.1 MMOL/L (3.6-5.0); TOTAL PROTEIN 5.8 GM/DL (6.4-8.2)
--- NOTE | 2022-08-25 07:20 | Progress Note - Surgery ---
Subjective Date Seen by a Provider: Aug 25, 2022 Time Seen by a Provider: 07:20 Subjective/Events-last exam Breathing okay but worse with activity. Denies any new complaints. Not had u/s yet today. Tolerating diet. Denies n/v fever sweats chills or chest pain. Focused Exam Lactate Level 08/22/22 15:50: Lactic Acid Level 1.68 Objective Exam Vital Signs Date Time Temp Pulse Resp B/P (MAP) Pulse Ox O2 Delivery O2 Flow Rate FiO2 08/25/22 03:45 36.8 79 16 135/89 (104) 94 Room Air 0.00 0.00 08/25/22 01:00 82 08/24/22 23:38 36.6 79 16 121/58 (79) 94 Room Air 0.00 0.00 08/24/22 20:04 36.9 84 16 117/73 (88) 96 Room Air 08/24/22 20:00 93 Room Air 08/24/22 19:00 83 08/24/22 15:39 36.7 71 18 109/69 (82) 98 Room Air 08/24/22 12:47 90 08/24/22 12:32 36.1 77 18 121/60 (80) 95 Room Air 08/24/22 08:41 95 Room Air 0.00 08/24/22 08:00 93 Room Air 08/24/22 07:23 36.4 80 18 132/61 (84) 95 Room Air I & O 08/25/22 07:00 Intake Total 1930 ml Output Total 2250 ml Balance -320 ml Capillary Refill : General Appearance: No Apparent Distress, WD/WN, Chronically ill, Other (Brooks and ashen) HEENT: PERRL/EOMI, Normal ENT Inspection, Pharynx Normal Neck: Full Range of Motion, Normal Inspection, Non Tender, Supple, Carotid Bruit Respiratory: Chest Non Tender, No Accessory Muscle Use, No Respiratory Distress, Decreased Breath Sounds Cardiovascular: Regular Rate, Rhythm, No JVD, Normal Peripheral Pulses Gastrointestinal: non tender, soft Extremity: Normal Capillary Refill, Normal Inspection, Normal Range of Motion, Non Tender, No Calf Tenderness, No Pedal Edema Neurologic/Psychiatric: Alert, Oriented x3, No Motor/Sensory Deficits, Depressed Affect Skin: Normal Color, Warm/Dry Lymphatic: No Adenopathy Results Lab Laboratory Tests 08/25/22 05:15: White Blood Count 8.7, Red Blood Count 3.93, Hemoglobin 12.1, Hematocrit 37, Mean Corpuscular Volume 94, Mean Corpuscular Hemoglobin 31, Mean Corpuscular Hemoglobin Concent 33, Red Cell Distribution Width 14.5, Platelet Count 366, Mean Platelet Volume 9.1, Immature Granulocyte % (Auto) 1, Neutrophils (%) (Auto) 59, Lymphocytes (%) (Auto) 22, Monocytes (%) (Auto) 16H, Eosinophils (%) (Auto) 2, Basophils (%) (Auto) 1, Neutrophils # (Auto) 5.1, Lymphocytes # (Auto) 1.9, Monocytes # (Auto) 1.4H, Eosinophils # (Auto) 0.2, Basophils # (Auto) 0.1, Immature Granulocyte # (Auto) 0.1, Sodium Level 136, Potassium Level 4.1, Chloride Level 106, Carbon Dioxide Level 21, Anion Gap 9, Blood Urea Nitrogen 23H, Creatinine 1.28, Estimat Glomerular Filtration Rate 43, BUN/Creatinine Ratio 18, Glucose Level 91, Calcium Level 8.8, Corrected Calcium 10.0, Total Bilirubin 0.6, Aspartate Amino Transf (AST/SGOT) 57H, Alanine Aminotransferase (ALT/SGPT) 40, Alkaline Phosphatase 230H, Total Protein 5.8L, Albumin 2.5L Microbiology 08/22/22 Blood Culture - Preliminary, Resulted No growth Assessment/Plan Assessment/Plan Assessment/Plan CHF b/l pleural effusions senior living anticoagulation hold anticoagulation u/s this morning to evaluate to make sure can do thoracentesis she understands risks and benefits safer after anticoagulation held JAKE TERESA DO Aug 25, 2022 07:20
[2022-08-25 07:21] VITALS: BP 125/63
[2022-08-25] MEDS ORDERED: LIDOCAINE 1% INJ 20 ML VIAL ONE (08:24)
[2022-08-25] MEDS ORDERED: TROUGH ORDER-PHARMACY XX NR (09:00)
[2022-08-25] MEDS: SENNOSIDES 8.6 MG (SENOKOT) TAB PO SCH (09:11)
[2022-08-25] MEDS: DULoxetine 30 MG (CYMBALTA) CAP PO SCH (09:11)
[2022-08-25] MEDS: DOCUSATE SODIUM 100 MG (COLACE) CAP PO SCH (09:11)
[2022-08-25] MEDS: FUROSEMIDE 20 MG (LASIX) TAB PO SCH (09:11)
[2022-08-25] MEDS: VERAPAMIL SR 240 MG (CALAN SR) TAB PO SCH (09:12)
--- NOTE | 2022-08-25 09:32 | Progress Note - Cardiology ---
Cardiology SOAP Progress Note Subjective: Feels somewhat better after L pleural tap this am No cp or palp or syncope or shortness of breath Gen malaise and weakness present No focal weakness No n/v/d Objective: I&O/Vital Signs 08/24/22 08/25/22 08/25/22 08/25/22 23:38 01:00 03:45 07:13 Temp 36.6 36.8 Pulse 79 82 79 97 Resp 16 16 B/P (MAP) 121/58 (79) 135/89 (104) Pulse Ox 94 94 O2 Delivery Room Air Room Air O2 Flow Rate 0.00 0.00 0.00 0.00 08/25/22 07:21 Temp 36.4 Pulse 84 Resp 18 B/P (MAP) 125/63 (83) Pulse Ox 93 O2 Delivery Room Air 08/25/22 00:00 Intake Total 1530 ml Output Total 1800 ml Balance -270 ml Weight (Pounds): 165 Weight (Ounces): 2.0 Weight (Calculated Kilograms): 74.071221 Constitutional: AAO x 3, well-developed, well-nourished Respiratory: No accessory muscle use; chest expansion is symmetric, chest is bilaterally symmetric, other (diminished breath sounds at the bases) Cardiovascular: regular rate-rhythm, S1 and S2, systolic murmur (soft MARY at card base) Gastrointestional: No tender; soft; No guarding; audible bowel sounds Extremities: No clubbing, No cyanosis Neurologic/Psychiatric: oriented x 3, other (moves all limbs equally) Skin: normal color, warm/dry; No cyanosis, No rash on exposed areas, No ulcerations on exposed areas Results/Procedures: Labs Laboratory Tests 08/25/22 05:15: White Blood Count 8.7, Red Blood Count 3.93, Hemoglobin 12.1, Hematocrit 37, Mean Corpuscular Volume 94, Mean Corpuscular Hemoglobin 31, Mean Corpuscular Hemoglobin Concent 33, Red Cell Distribution Width 14.5, Platelet Count 366, Mean Platelet Volume 9.1, Immature Granulocyte % (Auto) 1, Neutrophils (%) (Auto) 59, Lymphocytes (%) (Auto) 22, Monocytes (%) (Auto) 16H, Eosinophils (%) (Auto) 2, Basophils (%) (Auto) 1, Neutrophils # (Auto) 5.1, Lymphocytes # (Auto) 1.9, Monocytes # (Auto) 1.4H, Eosinophils # (Auto) 0.2, Basophils # (Auto) 0.1, Immature Granulocyte # (Auto) 0.1, Sodium Level 136, Potassium Level 4.1, Chloride Level 106, Carbon Dioxide Level 21, Anion Gap 9, Blood Urea Nitrogen 23H, Creatinine 1.28, Estimat Glomerular Filtration Rate 43, BUN/Creatinine Ratio 18, Glucose Level 91, Calcium Level 8.8, Corrected Calcium 10.0, Total Bilirubin 0.6, Aspartate Amino Transf (AST/SGOT) 57H, Alanine Aminotransferase (ALT/SGPT) 40, Alkaline Phosphatase 230H, Total Protein 5.8L, Albumin 2.5L 08/25/22 09:00: Microbiology 08/22/22 Blood Culture - Preliminary, Resulted No growth Laboratory Tests 08/24/22 05:23 08/25/22 05:15 A/P: Assessment: Pleural eff, bilateral, larger on L, s/p L thoracentesis on 08/25/22 - CT CHEST 08-22-22: There are are bilateral pleural effusions layering out to a depth of 3.5 cm on the right and 6 cm on the left. There is a small pericardial effusion. There is some edema in the dependent portions of the lungs. Ascending aorta measures 3.9 cm. There is coronary calcific arteriosclerosis. There are a few small mediastinal lymph nodes but none that appear to be pathologically enlarged. - ECHO 08-22-22 (Dr Swann): LVEF 55-60%, no pericard eff, pleural eff present, mild MR, mild TR Recent pneumonia (hospitalized in mid July 2022) Palpitations, patient was seen with Dr. Das in EP consult the past. Has history of PVCs and ventricular bigeminy - intolerance to bb (due to bradycardia). Has intermittently been on verapamil Paroxysmal atrial fibrillation, - on OAC Dyspnea on exertion - Stress test was done on December 09, 2021 with extracardiac attenuation and no significant ischemia or infarction on SPECT images stress score 5, SDS 1, ejection fraction 77% - 2D echo was done on November 20, 2021 with normal LV size, ejection fraction 55 to 60%, grade 1 diastolic dysfunction, mild to moderate aortic regurgitation, PA pressure 25 to 30 mmHg, aortic root measurement 3.7 cm has not changed compared to the study that was done the year before in 2020 Peripheral edema, chronic, likely related to venous insuff Mild bilateral carotid stenosis, last checkup was done in October 2021. Continue to monitor Lipid profile done in September 2021 showing total cholesterol 134, HDL 56, triglyceride 86, LDL 61 Hypothyroidism, followed and managed by primary care physician. Anxiety History of vitamin D deficiency Plan: * Resume OAC later today if approved by the surg svce * Continue verapamil at home dose * Monitor labs * Monitor rhythm * Further recs based on hosp course ASHELY MCFADDEN MD FACP FACC CCDS Aug 25, 2022 09:32
[2022-08-25] MEDS: VANCOMYCIN 1250 MG/NS 250 ML PREMIX IV SCH (10:03)
[2022-08-25 10:09] LABS: BODY FLUID RBC COUNT 0.015 10^6/uL; BODY FLUID WBC TOTAL COUNT 1.684 10^3/uL
[2022-08-25 10:36] LABS: GLUCOSE,BODY FLUID 98 MG/DL; TOTAL PROTEIN,BODY FLUID 3.6 G/DL
[2022-08-25 10:50] LABS: BODY FLUID APPEARENCE MOD CLDY; BODY FLUID COLOR AMBER; BODY FLUID SOURCE PLEURAL
[2022-08-25 11:26] VITALS: BP 119/65
[2022-08-25] MEDS ORDERED: TRM50T PO (11:31)
[2022-08-25] MEDS ORDERED: AMOX1TAB12 PO (11:31)
--- NOTE | 2022-08-25 11:32 | Discharge Summary ---
Diagnosis/Chief Complaint Date of Admission Aug 22, 2022 at 14:20 Date of Discharge Discharge Date: Aug 25, 2022 Discharge Diagnosis Assessment: Shortness of breath Recent pneumonia 2 weeks ago Bilateral pleural effusions status post thoracenteses by Dr. Zamarripa Depression Fibromyalgia Hypothyroidism Hypertension Hyperlipidemia Plan: Hold oral anticoagulation in preparation for thoracentesis Appreciate Dr. Zamarripa Ambulate Home meds IV antibiotics Echo review Discharge Summary Discharge Physical Examination Allergies: Coded Allergies: Sulfa (Sulfonamide Antibiotics) (Unverified Allergy, Unknown, 11/25/17) ciprofloxacin (Unverified Allergy, Unknown, 11/25/17) Vitals & I&Os Vital Signs Date Time Temp Pulse Resp B/P (MAP) Pulse Ox O2 Delivery O2 Flow Rate FiO2 08/25/22 12:46 36.4 87 18 119/65 94 Room Air 0.00 08/22/22 15:36 21 General Appearance: Alert, Oriented X3, Cooperative Respiratory: Clear to Auscultation Cardiovascular: Regular Rate Psych/Mental Status: Mental Status NL Hospital Course Was the Problem List Reviewed?: Yes Patient had an uneventful hospital course she was directly admitted due to severe pleural effusion and shortness of breath following pneumonia 2 weeks prior. Septic work-up revealed evidence of pneumonia. Patient was placed on broad-spectrum antibiotics. Oral anticoagulation was held until Dr. Zamarripa performed thoracentesis. Overall she did very well and was able to ambulate and focus on nutrition. She was sent home on oral antibiotics with close follow-up with [facility] (last 24 hrs) Laboratory Tests 08/22/22 15:47: Blood Gas Puncture Site RIGHT RADIAL, Blood Gas Patient Temperature 36.2, Arterial Blood pH 7.45H, Arterial Blood Partial Pressure CO2 33L, Arterial Blood Partial Pressure O2 67L, Arterial Blood HCO3 23, Arterial Blood Total CO2 23.8, Arterial Blood Oxygen Saturation 96, Arterial Blood Base Excess -0.8, Luc Test YES-POS, Blood Gas Ventilator Setting NO, Blood Gas Inspired Oxygen N/A 08/22/22 15:50: White Blood Count 8.2, Red Blood Count 3.90, Hemoglobin 12.1, Hematocrit 38, Mean Corpuscular Volume 97, Mean Corpuscular Hemoglobin 31, Mean Corpuscular He moglobin Concent 32, Red Cell Distribution Width 14.9H, Platelet Count 406H, Mean Platelet Volume 8.7L, Immature Granulocyte % (Auto) 1, Neutrophils (%) (Auto) 59, Lymphocytes (%) (Auto) 25, Monocytes (%) (Auto) 14H, Eosinophils (%) (Auto) 1, Basophils (%) (Auto) 0, Neutrophils # (Auto) 4.8, Lymphocytes # (Auto) 2.1, Monocytes # (Auto) 1.1H, Eosinophils # (Auto) 0.1, Basophils # (Auto) 0.0, Immature Granulocyte # (Auto) 0.1, Erythrocyte Sedimentation Rate 36H, D-Dimer 6.77H, Sodium Level 141, Potassium Level 4.4, Chloride Level 109H, Carbon Dioxide Level 21, Anion Gap 11, Blood Urea Nitrogen 27H, Creatinine 1.22, Estimat Glomerular Filtration Rate 45, BUN/Creatinine Ratio 22, Glucose Level 99, Lactic Acid Level 1.68, Calcium Level 8.5, Corrected Calcium 9.5, Total Bilirubin 0.4, Aspartate Amino Transf (AST/SGOT) 70H, Alanine Aminotransferase (ALT/SGPT) 47, Alkaline Phosphatase 219H, Troponin I < 0.028, C-Reactive Protein High Sensitivity 5.66H, B-Type Natriuretic Peptide 363.2H, Total Protein 6.0L, Albumin 2.7L 08/22/22 17:10: Urine Color YELLOW, Urine Clarity CLEAR, Urine pH 5.5, Urine Specific [place] 1.015L, Urine Protein NEGATIVE, Urine Glucose (UA) NEGATIVE, Urine Ketones NEGA TIVE, Urine Nitrite NEGATIVE, Urine Bilirubin NEGATIVE, Urine Urobilinogen 0.2, Urine Leukocyte Esterase NEGATIVE, Urine RBC (Auto) NEGATIVE, Urine RBC NONE, Urine WBC NONE, Urine Squamous Epithelial Cells 0-2, Urine Crystals NONE, Urine Bacteria NEGATIVE, Urine Casts NONE, Urine Mucus NEGATIVE, Urine Culture Indicated NO 08/23/22 05:42: White Blood Count 8.5, Red Blood Count 3.63L, Hemoglobin 11.3L, Hematocrit 35, Mean Corpuscular Volume 96, Mean Corpuscular Hemoglobin 31, Mean Corpuscular Hemoglobin Concent 33, Red Cell Distribution Width 14.7H, Platelet Count 350, Mean Platelet Volume 8.8L, Immature Granulocyte % (Auto) 1, Neutrophils (%) (Auto) 54, Lymphocytes (%) (Auto) 29, Monocytes (%) (Auto) 13H, Eosinophils (%) (Auto) 2, Basophils (%) (Auto) 1, Neutrophils # (Auto) 4.6, Lymphocytes # (Auto) 2.5, Monocytes # (Auto) 1.1H, Eosinophils # (Auto) 0.2, Basophils # (Auto) 0.1, Immature Granulocyte # (Auto) 0.1, Sodium Level 139, Potassium Level 4.0, Chloride Level 110H, Carbon Dioxide Level 19L, Anion Gap 10, Blood Urea Nitrogen 25H, Creatinine 1.11, Estimat Glomerular Filtration Rate 51, BUN/Creatinine Ratio 23, Glucose Level 97, Calcium Level 8.3L, Corrected Calcium 9.5, Total Bilirubin 0.4, Aspartate Amino Transf (AST/SGOT) 64H, Alanine Aminotransferase (ALT/SGPT) 42, Alkaline Phosphatase 201H, Total Protein 5.3L, Albumin 2.5L 08/24/22 05:23: White Blood Count 8.0, Red Blood Count 3.65L, Hemoglobin 11.3L, Hematocrit 35, Mean Corpuscular Volume 95, Mean Corpuscular Hemoglobin 31, Mean Corpuscular Hemoglobin Concent 33, Red Cell Distribution Width 14.6H, Platelet Count 352, Mean Platelet Volume 8.9L, Immature Granulocyte % (Auto) 1, Neutrophils (%) (Auto) 62, Lymphocytes (%) (Auto) 20, Monocytes (%) (Auto) 15H, Eosinophils (%) (Auto) 2, Basophils (%) (Auto) 1, Neutrophils # (Auto) 4.9, Lymphocytes # (Auto) 1.6, Monocytes # (Auto) 1.2H, Eosinophils # (Auto) 0.2, Basophils # (Auto) 0.1, Immature Granulocyte # (Auto) 0.1, Sodium Level 138, Potassium Level 4.2, Chloride Level 108H, Carbon Dioxide Level 21, Anion Gap 9, Blood Urea Nitrogen 22H, Creatinine 1.06, Estimat Glomerular Filtration Rate 54, BUN/Creatinine Ratio 21, Glucose Level 89, Calcium Level 8.4L, Corrected Calcium 9.7, Total Bilirubin 0.5, Aspartate Amino Transf (AST/SGOT) 48H, Alanine Aminotransferase (ALT/SGPT) 35, Alkaline Phosphatase 213H, Total Protein 5.3L, Albumin 2.4L 08/25/22 05:15: White Blood Count 8.7, Red Blood Count 3.93, Hemoglobin 12.1, Hematocrit 37, Mean Corpuscular Volume 94, Mean Corpuscular Hemoglobin 31, Mean Corpuscular Hemoglobin Concent 33, Red Cell Distribution Width 14.5, Platelet Count 366, Mean Platelet Volume 9.1, Immature Granulocyte % (Auto) 1, Neutrophils (%) (Auto) 59, Lymphocytes (%) (Auto) 22, Monocytes (%) (Auto) 16H, Eosinophils (%) (Auto) 2, Basophils (%) (Auto) 1, Neutrophils # (Auto) 5.1, Lymphocytes # (Auto) 1.9, Monocytes # (Auto) 1.4H, Eosinophils # (Auto) 0.2, Basophils # (Auto) 0.1, Immature Granulocyte # (Auto) 0.1, Sodium Level 136, Potassium Level 4.1, Chloride Level 106, Carbon Dioxide Level 21, Anion Gap 9, Blood Urea Nitrogen 23H, Creatinine 1.28, Estimat Glomerular Filtration Rate 43, BUN/Creatinine Ratio 18, Glucose Level 91, Calcium Level 8.8, Corrected Calcium 10.0, Total Bilirubin 0.6, Aspartate Amino Transf (AST/SGOT) 57H, Alanine Aminotransferase (ALT/SGPT) 40, Alkaline Phosphatase 230H, Total Protein 5.8L, Albumin 2.5L 08/25/22 09:00: Vancomycin Level Trough 14.7 08/25/22 09:46: Body Fluid Source PLEURAL, Body Fluid Color ERIC, Body Fluid Appearance MOD CLDY, Body Fluid WBC 1.684, Body Fluid RBC 0.015, Body Fl Polynuclear WBCs (%)(Auto) 34.1, Body Fluid Mononuclear Cells % Auto 65.9, Body Fluid Slide Review Yes, Body Fluid Glucose 98, Body Fluid Total Protein 3.6 Microbiology 08/22/22 Blood Culture - Preliminary, Resulted No growth Pending Labs Microbiology Date/Time Source Procedure Growth Status 08/22/22 15:50 Peripheral Lt Ac Blood Culture - Preliminary No growth Resulted 08/22/22 15:38 Peripheral Rt Ac Blood Culture - Preliminary No growth Resulted Laboratory Tests 08/22/22 15:47: Blood Gas Puncture Site RIGHT RADIAL, Blood Gas Patient Temperature 36.2, Arterial Blood pH 7.45, Arterial Blood Partial Pressure CO2 33, Arterial Blood Partial Pressure O2 67, Arterial Blood HCO3 23, Arterial Blood Total CO2 23.8, Arterial Blood Oxygen Saturation 96, Arterial Blood Base Excess -0.8, Luc Test YES-POS, Blood Gas Ventilator Setting NO, Blood Gas Inspired Oxygen N/A 08/22/22 15:50: White Blood Count 8.2, Red Blood Count 3.90, Hemoglobin 12.1, Hematocrit 38, Mean Corpuscular Volume 97, Mean Corpuscular Hemoglobin 31, Mean Corpuscular Hemoglobin Concent 32, Red Cell Distribution Width 14.9, Platelet Count 406, Mean Platelet Volume 8.7, Immature Granulocyte % (Auto) 1, Neutrophils (%) (Auto) 59, Lymphocytes (%) (Auto) 25, Monocytes (%) (Auto) 14, Eosinophils (%) (Auto) 1, Basophils (%) (Auto) 0, Neutrophils # (Auto) 4.8, Lymphocytes # (Auto) 2.1, Monocytes # (Auto) 1.1, Eosinophils # (Auto) 0.1, Basophils # (Auto) 0.0, Immature Granulocyte # (Auto) 0.1, Erythrocyte Sedimentation Rate 36, D-Dimer 6.77, Sodium Level 141, Potassium Level 4.4, Chloride Level 109, Carbon Dioxide Level 21, Anion Gap 11, Blood Urea Nitrogen 27, Creatinine 1.22, Estimat Glomerular Filtration Rate 45, BUN/Creatinine Ratio 22, Glucose Level 99, Lactic Acid Level 1.68, Calcium Level 8.5, Corrected Calcium 9.5, Total Bilirubin 0.4, Aspartate Amino Transf (AST/SGOT) 70, Alanine Aminotransferase (ALT/SGPT) 47, Alkaline Phosphatase 219, Troponin I < 0.028, C-Reactive Protein High Sensitivity 5.66, B-Type Natriuretic Peptide 363.2, Total Protein 6.0, Albumin 2.7 08/22/22 17:10: Urine Color YELLOW, Urine Clarity CLEAR, Urine pH 5.5, Urine Specific [place] 1.015, Urine Protein NEGATIVE, Urine Glucose (UA) NEGATIVE, Urine Ketones NEGATIVE, Urine Nitrite NEGATIVE, Urine Bilirubin NEGATIVE, Urine Urobilinogen 0.2, Urine Leukocyte Esterase NEGATIVE, Urine RBC (Auto) NEGATIVE, Urine RBC NONE, Urine WBC NONE, Urine Squamous Epithelial Cells 0-2, Urine Crystals NONE, Urine Bacteria NEGATIVE, Urine Casts NONE, Urine Mucus NEGATIVE, Urine Culture Indicated NO 08/23/22 05:42: White Blood Count 8.5, Red Blood Count 3.63, Hemoglobin 11.3, Hematocrit 35, Mean Corpuscular Volume 96, Mean Corpuscular Hemoglobin 31, Mean Corpuscular Hemoglobin Concent 33, Red Cell Distribution Width 14.7, Platelet Count 350, Mean Platelet Volume 8.8, Immature Granulocyte % (Auto) 1, Neutrophils (%) (Auto) 54, Lymphocytes (%) (Auto) 29, Monocytes (%) (Auto) 13, Eosinophils (%) (Auto) 2, Basophils (%) (Auto) 1, Neutrophils # (Auto) 4.6, Lymphocytes # (Auto) 2.5, Monocytes # (Auto) 1.1, Eosinophils # (Auto) 0.2, Basophils # (Auto) 0.1, Immature Granulocyte # (Auto) 0.1, Sodium Level 139, Potassium Level 4.0, Chloride Level 110, Carbon Dioxide Level 19, Anion Gap 10, Blood Urea Nitrogen 25, Creatinine 1.11, Estimat Glomerular Filtration Rate 51, BUN/Creatinine Ratio 23, Glucose Level 97, Calcium Level 8.3, Corrected Calcium 9.5, Total Bilirubin 0.4, Aspartate Amino Transf (AST/SGOT) 64, Alanine Aminotransferase (ALT/SGPT) 42, Alkaline Phosphatase 201, Total Protein 5.3, Albumin 2.5 08/24/22 05:23: White Blood Count 8.0, Red Blood Count 3.65, Hemoglobin 11.3, Hematocrit 35, Mean Corpuscular Volume 95, Mean Corpuscular Hemoglobin 31, Mean Corpuscular Hemoglobin Concent 33, Red Cell Distribution Width 14.6, Platelet Count 352, Mean Platelet Volume 8.9, Immature Granulocyte % (Auto) 1, Neutrophils (%) (Auto) 62, Lymphocytes (%) (Auto) 20, Monocytes (%) (Auto) 15, Eosinophils (%) (Auto) 2, Basophils (%) (Auto) 1, Neutrophils # (Auto) 4.9, Lymphocytes # (Auto) 1.6, Monocytes # (Auto) 1.2, Eosinophils # (Auto) 0.2, Basophils # (Auto) 0.1, Immature Granulocyte # (Auto) 0.1, Sodium Level 138, Potassium Level 4.2, Chloride Level 108, Carbon Dioxide Level 21, Anion Gap 9, Blood Urea Nitrogen 22, Creatinine 1.06, Estimat Glomerular Filtration Rate 54, BUN/Creatinine Ratio 21, Glucose Level 89, Calcium Level 8.4, Corrected Calcium 9.7, Total Bilirubin 0.5, Aspartate Amino Transf (AST/SGOT) 48, Alanine Aminotransferase (ALT/SGPT) 35, Alkaline Phosphatase 213, Total Protein 5.3, Albumin 2.4 08/25/22 05:15: White Blood Count 8.7, Red Blood Count 3.93, Hemoglobin 12.1, Hematocrit 37, Mean Corpuscular Volume 94, Mean Corpuscular Hemoglobin 31, Mean Corpuscular Hemoglobin Concent 33, Red Cell Distribution Width 14.5, Platelet Count 366, Mean Platelet Volume 9.1, Immature Granulocyte % (Auto) 1, Neutrophils (%) (Auto) 59, Lymphocytes (%) (Auto) 22, Monocytes (%) (Auto) 16, Eosinophils (%) (Auto) 2, Basophils (%) (Auto) 1, Neutrophils # (Auto) 5.1, Lymphocytes # (Auto) 1.9, Monocytes # (Auto) 1.4, Eosinophils # (Auto) 0.2, Basophils # (Auto) 0.1, Immature Granulocyte # (Auto) 0.1, Sodium Level 136, Potassium Level 4.1, Chloride Level 106, Carbon Dioxide Level 21, Anion Gap 9, Blood Urea Nitrogen 23, Creatinine 1.28, Estimat Glomerular Filtration Rate 43, BUN/Creatinine Ratio 18, Glucose Level 91, Calcium Level 8.8, Corrected Calcium 10.0, Total Bilirubin 0.6, Aspartate Amino Transf (AST/SGOT) 57, Alanine Aminotransferase (ALT/SGPT) 40, Alkaline Phosphatase 230, Total Protein 5.8, Albumin 2.5 08/25/22 09:00: Vancomycin Level Trough 14.7 08/25/22 09:46: Body Fluid Source PLEURAL, Body Fluid Color ERIC, Body Fluid Appearance MOD CLDY, Body Fluid WBC 1.684, Body Fluid RBC 0.015, Body Fl Polynuclear WBCs (%)(Auto) 34.1, Body Fluid Mononuclear Cells % Auto 65.9, Body Fluid Slide Review Yes, Body Fluid Glucose 98, Body Fluid Total Protein 3.6 Discharge Home Medications: Active Scripts Active Amox Tr-K Clv 875-125 mg Tab (Amoxicillin/Potassium Clav) 875 Mg-125 Mg Tablet 1 Each PO BID Tramadol HCl 50 Mg Tablet 50 Mg PO TID PRN Reported Eliquis (Apixaban) 5 Mg Tablet 1 Ea PO BID [Palmitoylethanolamid] 300 Mg PO BID Probiotic (L.acidoph & Paracasei,B.lactis) 10 Billion Cell Capsule 1 Each PO 1200 Fish Oil 1,200 mg Softgel ([place]-3/Dha/Epa/Fish Oil) 1,200 Mg (144 Mg-216 Mg) Capsule 1,200 Mg PO 1200 Vitamin D3 (Cholecalciferol (Vitamin D3)) 25 Mcg (1000 Unit) Tablet 25 Mcg PO 1200 Calcium 600 + Vit D Softgel (Calcium Carbonate/Vitamin D3) 600MG-12.5 Capsule 2 Each PO 1200 Atorvastatin Calcium 10 Mg Tablet 10 Mg PO HS LAST FILLED 03-09-2022 #90/90 DAY SUPPLY Furosemide 20 Mg Tablet 20 Mg PO DAILY Potassium Chloride 10 Meq Tab.er.prt 10 Meq PO DAILY Levothyroxine Sodium 75 Mcg Tablet 75 Mcg PO DAILY Verapamil Sr (Verapamil HCl) 240 Mg Cap24h.pel 240 Mg PO DAILY Duloxetine HCl 30 Mg Capsule.dr 30 Mg PO DAILY Premarin (Estrogens Conjugated) 0.625 Mg/Gram Cr 1 Applic VG MO,WE,SA @HS Instructions to patient/family Please see electronic discharge instructions given to patient. FRANTZ OCHOA DO Aug 25, 2022 11:32
[2022-08-25] MEDS: LACTOBACILLUS ACIDOPHILUS (PROBIOTIC) CAPSULE PO SCH (11:48)
[2022-08-25] MEDS: OMEGA 3 (FISH OIL) 1000 MG CAP PO SCH (11:48)
[2022-08-25] MEDS: VITAMIN D3 25 MCG (1,000 UNITS) TABLET PO SCH (11:48)
--- NOTE | 2022-08-25 11:48 | Diagnostic Imaging Report ---
INDICATION: Status post thoracentesis. COMPARISON: 08/22/2022 FINDINGS: Single frontal radiographic view of the chest was obtained and demonstrates interval decrease in left-sided pleural effusion status post thoracentesis. There is probable trace residual left basilar effusion. No pneumothorax is seen on either side. Background chronic interstitial lung disease is noted. Cardiac silhouette and pulmonary vasculature are within normal limits. Osseous structures show no acute abnormalities. IMPRESSION:. No pneumothorax status post left-sided thoracentesis. Dictated by: Dictated on workstation # [id number]
[2022-08-25 12:46] VITALS: BP 119/65
--- NOTE | 2022-08-25 20:13 | OPERATIVE REPORT ---
DATE OF SERVICE: 08/25/2022 PREOPERATIVE DIAGNOSIS: Left pleural effusion. POSTOPERATIVE DIAGNOSIS: Left pleural effusion. PROCEDURE: Left ultrasound-guided thoracentesis. SURGEON: Jake Zamarripa DO ANESTHESIA: 1 % lidocaine 5 mL. COMPLICATIONS: None. INDICATIONS: The patient is a 77-year-old female with bilateral pleural effusions. The left one by ultrasound is drainable. She understands risks and benefits of procedure and wished to proceed. Consent was signed in chart. DESCRIPTION OF PROCEDURE: The patient was placed in sitting position. Ultrasound was used to isolate the largest pocket on the left chest. Once this was located, the area was prepped and draped in sterile fashion. Timeout was performed. Local anesthetic was infiltrated and infused through the chest wall. An #11 blade scalpel was used to make a small skin incision. The [id number] catheter and needle were then advanced through the chest wall and dark straw-colored fluid was returned. The catheter was inserted and was attached to a vacuum suction, which evacuated 800 mL of fluid. Catheter was removed and a sterile bandage was applied. The patient tolerated the procedure well without any complications. Chest x-ray pending. Job ID: [id number] DocumentID: [id number] Dictated Date: 08/25/2022 12:27:29 Product Safety And Standards Engineer Date: 08/25/2022 20:12:00 Dictated By: JAKE ZAMARRIPA DO
[2022-08-25] MEDS ORDERED: APIXABAN 5 MG (ELIQUIS) TABLET PO SCH (21:00)
== END 2022-08-25 12:18 | disposition home or self-care (01) ==
LOC: 4TH 14:20
PROVIDERS: ADMIT Internal Medicine; ATTEND Internal Medicine
DX: J90 Pleural effusion, not elsewhere classified (principal); I31.39 Other pericardial effusion (noninflammatory); I25.10 Atherosclerotic heart disease of native coronary artery without angina pectoris; R00.2 Palpitations; I48.0 Paroxysmal atrial fibrillation; R06.00 Dyspnea, unspecified; R60.1 Generalized edema; I08.1 Rheumatic disorders of both mitral and tricuspid valves; I65.23 Occlusion and stenosis of bilateral carotid arteries; I11.0 Hypertensive heart disease with heart failure; I50.9 Heart failure, unspecified; M79.7 Fibromyalgia; E03.9 Hypothyroidism, unspecified; I10 Essential (primary) hypertension; J18.9 Pneumonia, unspecified organism; E78.5 Hyperlipidemia, unspecified; F32.A Depression, unspecified; F41.9 Anxiety disorder, unspecified; Z86.39 Personal history of other endocrine, nutritional and metabolic disease; Z79.01 Long term (current) use of anticoagulants; Z79.890 Hormone replacement therapy; Z79.899 Other long term (current) drug therapy
CPT/HCPCS: 32555; 36600; 71045 ×2; 71260; 74177; 76604; 76705; 80053 ×4; 80202; 81000; 82805; 82945; 83605; 83880; 84157; 84484; 85025 ×4; 85379; 85652; 86141; 87040; 87070; 87205; 89051; 94640 ×3; 94760 ×2; 94761; 96365; 96366 ×3; 96375; 96376 ×3; C8929; G0378; G0379; 36415; 93306

== ENCOUNTER 2022-09-24 05:29 | Outpatient (CLI) | payer MEDICARE ==
[~2022-09-24] VITALS: Ht 172 cm; Wt 86.4 kg
[~2022-09-24 05:29] MED LIST changes: +AMOX1TAB12 PO; +APIX5TAB PO; +TRM50T PO
== END 2022-10-06 15:37 | disposition home or self-care (01) ==
LOC: PREOP 05:29
PROVIDERS: ATTEND Specialist
DX: Z01.818 Encounter for other preprocedural examination (principal)

== ENCOUNTER 2022-09-26 07:01 | Day surgery (SDC) | payer MEDICARE ==
[~2022-09-26] VITALS: Ht 172 cm; Wt 86.4 kg
[2022-09-26] MEDS: TETRACAINE 0.5% OPHTH SOLN 4 ML BTL (SINGLE DOSE ONLY) OU PRN ×4 (08:13→08:30)
[2022-09-26] MEDS ORDERED: POVIDONE (BETADINE) OPHTH SOLN 5% 30 ML OP ONE (08:15)
[2022-09-26] MEDS ORDERED: LIDOCAINE PF 1% 2 ML VIAL IR PRN (08:15)
[2022-09-26] MEDS ORDERED: TIMOLOL 0.5% (CATARACTS) 0.3 ML BTL OU PRN (08:15)
[2022-09-26] MEDS ORDERED: MOXIFLOXACIN OPHTH SOLN 5 MG/ML 0.3 ML SYRINGE OP ONE (08:15)
[2022-09-26] MEDS: TROPICAMIDE 1% OPH SOLN (MYDRIACYL) 15 ML BTL OP SCH ×3 (08:20→08:30)
[2022-09-26] MEDS: PHENYLEPHRINE 10% OPHTH (NEO-SYN) 5 ML BTL OU SCH ×3 (08:20→08:30)
[2022-09-26 08:23] VITALS: BP 132/78
[2022-09-26] MEDS ORDERED: MIDAZOLAM 2 MG/2 ML (VERSED) VIAL ONE (08:43)
--- NOTE | 2022-09-26 08:45 | Ophthalmologist Pre-Op Note ---
Pre-Operative Progress Note H&P Reviewed The H&P was reviewed, patient examined and no changes noted. Date H&P Reviewed: Sep 26, 2022 Time H&P Reviewed: 08:45 Pre-Op Dx Cataract, Right Eye PAPI YEE MD Sep 26, 2022 08:45
--- NOTE | 2022-09-26 09:08 | Ophthalmology Operative Report ---
Cataract removal/placement IOL PREOPERATIVE DIAGNOSIS: Cataract Right Eye POSTOPERATIVE DIAGNOSIS: Cataract Right Eye PROCEDURE: Cataract removal and placement of posterior chamber implant, right eye SURGEON: Fly Yee ANESTHESIA: Topical with sedation COMPLICATIONS: None ESTIMATED BLOOD LOSS: Minimal DESCRIPTION OF PROCEDURE: After proper informed consent was obtained, the patient, a 77 female, was taken to the Operating Room and the right eye was anesthetized with tetracaine. The right eye was then prepped and draped in the usual manner. A wire lid speculum was placed. A paracentesis was made at the left hand position. Preservative free lidocaine was injected into the anterior chamber followed by viscoelastic. A clear corneal incision was made in the temporal position. A capsulorrhexis was preformed and the central nuclear and cortical material were removed. The posterior capsule was polished and Topher 25.0 AU00T0 IOL was placed into the capsular bag. The residual viscoelastic was aspirated and balanced saline solution was injected into the anterior chamber. Moxifloxacin was injected into the anterior chamber. The wound was checked and found to be water tight. The patient tolerated the procedure well without complications. FLY YEE MD Sep 26, 2022 09:08
[2022-09-26 09:10] VITALS: BP 125/70
--- NOTE | 2022-09-26 13:52 | Anesthesia-General Post-Op ---
MAC Patient Condition Mental Status/LOC: Same as Preop Cardiovascular: Satisfactory Nausea/Vomiting: Absent Respiratory: Satisfactory Pain: Controlled Complications: Absent Post Op Complications Complications None Follow Up Care/Instructions Patient Instructions None needed. Anesthesiology Discharge Order Discharge Order Patient is doing well, no complaints, stable vital signs, no apparent adverse anesthesia problems. No complications reported per nursing. LEANDRA PALOMO CRNA Sep 26, 2022 13:52
== END 2022-09-26 09:10 | disposition home or self-care (01) ==
LOC: SDC 07:01
PROVIDERS: ATTEND Specialist
DX: H25.9 Unspecified age-related cataract (principal)
CPT/HCPCS: 66984; V2632

== ENCOUNTER → 2022-10-08 | Outpatient (CLI) | payer MEDICARE | END | disposition home or self-care (01) | LOC: PREOP 06:08 | PROVIDERS: ATTEND Specialist | DX: Z01.818 Encounter for other preprocedural examination (principal) ==

== ENCOUNTER 2022-10-10 08:30 | Day surgery (SDC) | payer MEDICARE ==
[~2022-10-10] VITALS: Ht 172 cm; Wt 86.4 kg
[2022-10-10] MEDS: TETRACAINE 0.5% OPHTH SOLN 4 ML BTL (SINGLE DOSE ONLY) OU PRN ×4 (08:43→09:00)
[2022-10-10] MEDS ORDERED: POVIDONE IODINE OPHTH SOLN 5% 30 ML OP ONE (08:45)
[2022-10-10] MEDS ORDERED: LIDOCAINE PF 1% 2 ML VIAL IR PRN (08:45)
[2022-10-10] MEDS ORDERED: TIMOLOL 0.5% (CATARACTS) 0.3 ML BTL OU PRN (08:45)
[2022-10-10] MEDS: PHENYLEPHRINE 10% OPHTH SOLN 5 ML BTL OU SCH ×3 (08:49→09:00)
[2022-10-10] MEDS: TROPICAMIDE 1% OPH SOLN (MYDRIACYL) 15 ML BTL OP SCH ×3 (08:49→09:00)
[2022-10-10] MEDS ORDERED: MIDAZOLAM INJ 2 MG/2 ML VIAL ONE (08:49)
[2022-10-10 08:50] VITALS: BP 134/72
--- NOTE | 2022-10-10 09:49 | Ophthalmology Operative Report ---
Cataract removal/placement IOL PREOPERATIVE DIAGNOSIS: Cataract Left Eye POSTOPERATIVE DIAGNOSIS: Cataract Left Eye PROCEDURE: Cataract removal and placement of posterior chamber implant, left eye SURGEON: Fly Yee ANESTHESIA: Topical with sedation COMPLICATIONS: None ESTIMATED BLOOD LOSS: Minimal DESCRIPTION OF PROCEDURE: After proper informed consent was obtained, the patient, a 77 female, was taken to the Operating Room and the left eye was anesthetized with tetracaine. The left eye was then prepped and draped in the usual manner. A wire lid speculum was placed. A paracentesis was made at the left hand position. Preservative free lidocaine was injected into the anterior chamber followed by viscoelastic. A clear corneal incision was made in the temporal position. A capsulorrhexis was preformed and the central nuclear and cortical material were removed. The posterior capsule was polished and an Topher 24.5 AU00T0 was placed into the capsular bag. The residual viscoelastic was aspirated and balanced saline solution was injected into the anterior chamber. The wound was checked and found to be water tight. The patient tolerated the procedure well without complications. FLY YEE MD Oct 10, 2022 09:49
--- NOTE | 2022-10-10 09:49 | Ophthalmologist Pre-Op Note ---
Pre-Operative Progress Note H&P Reviewed The H&P was reviewed, patient examined and no changes noted. Date H&P Reviewed: Oct 10, 2022 Time H&P Reviewed: 09:22 Pre-Op Dx Cataract, Left Eye PAPI YEE MD Oct 10, 2022 09:49
[2022-10-10 09:52] VITALS: BP 122/77
--- NOTE | 2022-10-10 11:21 | Anesthesia-General Post-Op ---
MAC Patient Condition Mental Status/LOC: Same as Preop Cardiovascular: Satisfactory Nausea/Vomiting: Absent Respiratory: Satisfactory Pain: Controlled Complications: Absent Post Op Complications Complications None Follow Up Care/Instructions Patient Instructions None needed. Anesthesiology Discharge Order Discharge Order Patient is doing well, no complaints, stable vital signs, no apparent adverse anesthesia problems. No complications reported per nursing. MAGALI CANNON CRNA Oct 10, 2022 11:21
== END 2022-10-10 09:54 | disposition home or self-care (01) ==
LOC: SDC 08:30
PROVIDERS: ATTEND Specialist
DX: H25.9 Unspecified age-related cataract (principal)
CPT/HCPCS: 66984; V2632